=== PATIENT | female | born 1945 | race Caucasian/White ===

== ENCOUNTER → 2018-05-07 11:13 | Outpatient (CLI) | payer MEDICARE, SELFPAY ==
[2018-05-07 11:17] LABS: Microscopic, Urine URINE MICROSCOPIC (MICROSCOPIC)
--- NOTE | 2018-05-07 11:36 | XR_ITS ---
XR abdomen min 2V COMPARISON: None HISTORY: Abdominal pain TECHNIQUE: KUB and upright abdomen FINDINGS: There are mildly dilated loops of distal small bowel. There is minimal gas and stool in both hepatic and splenic flexures of the colon. There is no evidence of free air in the no abnormal soft tissue shadows. There is prominent levoscoliotic curvature of the upper lumbar spine with multilevel degenerative changes and generalized osteopenia. IMPRESSION: Mildly abnormal bowel gas pattern likely due to some degree of gastroenteritis Cannot deftly exclude the possibility of a early or partial mechanical small bowel obstruction and suggest clinical correlation and follow-up films if clinically suspected.
--- NOTE | 2018-05-07 11:36 | XR_ITS ---
XR chest 2V HISTORY: ITS.REASON: FEBRILE ILLNESS ORDERING PHYSICIAN: Santana Jacob PATIENT AGE: 72 years COMPARISON: None available FINDINGS: The cardiomediastinal silhouette and pulmonary vascularity are within normal limits. The lungs are clear without infiltrates, suspicious nodules, or pleural effusions. There is minimal atelectasis or scarring left lower lobe. There is a [id number] sized hiatal hernia noted. No acute bony abnormalities. There is mild dextroscoliotic curvature of the upper thoracic spine with multilevel degenerative changes. IMPRESSION: Negative chest, no acute finding
[2018-05-07 11:50] LABS: Basophils % 0.1 % (0.1-2.0); Eosinophils # 0.1 K/mm3 (0.0-0.4); Eosinophils % 0.3 % (0.1-12.0); Hematocrit 41.6 % (37.0-47.0); Hemoglobin 13.6 g/dL (12.2-16.2); Lymphocytes # 1.7 K/mm3 (0.7-4.5); Lymphocytes % 10.4 K/mm3 (10-50); Mean Corpuscular HGB Conc 32.8 g/dL (31.8-35.4); Mean Corpuscular Volume 100.6 fl (81-99); Mean Platelet Volume 8.6 fl (7.4-10.4); Monocytes # 0.9 K/mm3 (0.1-1.0); Monocytes % 5.4 % (1.7-9.3); Neutrophils % 83.8 % (37.0-80.0); Platelet Count 184 K/mm3 (142-424); Red Blood Count 4.14 M/mm3 (4.20-5.40); Red Cell Distribution Width 13.1 % (11.5-17.5); White Blood Count 16.7 K/mm3 (4.8-10.8)
[2018-05-07 11:53] LABS: MANUAL DIFFERENTIAL MANUAL DIFFERENTIAL (MANUAL DIFF)
[2018-05-07 11:54] LABS: Appearance,Urine CLEAR (Clear); Bilirubin,Urine Negative (Negative); Blood, Urine TRACE-I (Negative); Color,Urine YELLOW (Yellow); Glucose,Urine (UA) Negative (Negative); Ketones,Urine Negative (Negative); Leukocyte Esterase,Urine 1+ (Negative); Nitrate,Urine Negative (Negative); Protein,Urine Negative (Negative); Specific Gravity, Urine <= 1.005 (1.005-1.030)
[2018-05-07 11:57] LABS: Anion Gap 11.2 mEq/L (5-15); Blood Urea Nitrogen 11 mg/dL (7-18); Carbon Dioxide 26 mmol/L (21.0-32.0); Chloride 100 mmol/L (98-107); Creatinine,Serum 0.75 mg/dL (0.55-1.02); Estimated Glomerular Filt Rate 76 ml/min (>60); GFR (African American) 92 ML/MIN (>60); Glucose 116 mg/dL (74-106); Potassium 3.2 mmoL/L (3.5-5.1); Sodium 134 mmol/L (136-145)
[2018-05-07 12:10] LABS: Bacteria,Urine Trace /lpf
[2018-05-07 12:30] LABS: Lymphocytes % 7 % (10-50); Monocytes % 4 % (2-9); Neutrophils % 87 % (42-76); Total Cells Counted 100
[2018-05-07 12:32] LABS: Platelet Estimate Normal; RBC Morphology Normal
== END ==
PROVIDERS: Visit Provider Internal Medicine
DX: R50.9 Fever, unspecified (principal)
CPT/HCPCS: 36415; 71046; 74019; 80048; 81001; 85007; 85025; 87040; 87086; 87275; 87276

== ENCOUNTER → 2018-09-17 10:02 | Outpatient (CLI) | payer MEDICARE, SELFPAY ==
--- NOTE | 2018-09-17 10:05 | XR_ITS ---
EXAM: XR lumbar spine min 4V HISTORY: ITS.REASON: LOW BACK PAIN W/ LT SCIATICA ORDERING PHYSICIAN: Santana Jacob PATIENT AGE: 73 years COMPARISON: None FINDINGS: There is moderate lumbar scoliosis convex left measuring 25 degrees. There is mild wedging along the right lateral aspect of L2 and along the left lateral aspect of L4. Degenerative disc disease is present from L1 to S1 worse at L1-L2 L3-L4 and L5-S1. No acute fracture or dislocation is evident. No lytic or blastic change. There are 2 opacities to the left of L1 on the frontal view probably related to artifact. There is mild sclerosis of the SI joints. IMPRESSION: Moderate lumbar scoliosis with underlying degenerative disc disease as described above. There is mild compressive change involving the right aspect of L2 unchanged and the left aspect of L4 appears to have developed since 05/07/2018. Mild sclerosis of the SI joints
== END ==
PROVIDERS: PCP Internal Medicine; Visit Provider Internal Medicine
DX: M54.42 Lumbago with sciatica, left side (principal)
CPT/HCPCS: 72110

== ENCOUNTER → 2019-07-25 09:16 | Outpatient (POV) | payer MEDICARE, SELFPAY | PROVIDERS: PCP Internal Medicine; Visit Provider Nurse Practitioner Family | DX: Z00.00 Encounter for general adult medical examination without abnormal findings (principal) ==

== ENCOUNTER → 2019-08-02 | Outpatient (CLI) | payer MEDICARE, SELFPAY ==
[2019-08-02 16:05] LABS: Adenovirus F 40/41, stool Not Detected (NotDetected); Astrovirus Not Detected (NotDetected); Campylobacter Not Detected (NotDetected); Clostridium Difficile A/B, PCR Not Detected (NotDetected); Cryptosporidium Not Detected (NotDetected); Cyclospora Cayetanesis Not Detected (NotDetected); Entamoeba histolytica Not Detected (NotDetected); Enteroaggregative E coli Not Detected (NotDetected); Enteropathogenic E coli Not Detected (NotDetected); Enterotoxigenic E coli Not Detected (NotDetected); Giardia lamblia Not Detected (NotDetected); Norovirus Not Detected (NotDetected); Plesimonas Shigalloides, PCR Not Detected (NotDetected); Rotavirus A Not Detected (NotDetected); Salmonella, PCR Not Detected (NotDetected); Sapovirus Not Detected (NotDetected); Shiga-like toxin E coli Not Detected (NotDetected); Shigella Enterovasive E coli Not Detected (NotDetected); Vibrio Cholerae Not Detected (NotDetected); Vibrio, PCR Not Detected (NotDetected); Yersinia Entercolitica, PCR Not Detected (NotDetected)
== END ==
LOC: LAB.DROPOF 16:04 → LAB 16:05
PROVIDERS: Visit Provider Nurse Practitioner Family
DX: K21.9 Gastro-esophageal reflux disease without esophagitis (principal); R14.0 Abdominal distension (gaseous); R19.4 Change in bowel habit
CPT/HCPCS: 87506

== ENCOUNTER → 2020-01-16 11:03 | Outpatient (CLI) | payer MEDICARE, SELFPAY ==
--- NOTE | 2020-01-16 11:13 | XR_ITS ---
PROCEDURE: XR KNEE RT 3V CLINICAL INDICATION: OA Anterior knee pain COMPARISON: KNEE3L KNEE-3 VIEWS-LT from 03/14/2016 FINDINGS: No fracture or dislocation. No lytic or blastic change. There is normal mineralization. There are moderate to severe osteoarthritic changes of the medial compartment with mild osteoarthritic change of the patellofemoral joint. No fracture or dislocation. No lytic or blastic change. Other findings:None. 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
--- NOTE | 2020-01-16 11:13 | XR_ITS ---
PROCEDURE: XR KNEE LT 3V CLINICAL INDICATION: OA Anterior knee pain COMPARISON: KNEE3L KNEE-3 VIEWS-LT from 03/14/2016 FINDINGS: No fracture or dislocation. No lytic or blastic change. There is normal mineralization. There are moderate to severe osteoarthritic changes of the medial compartment slightly worse than when compared to the previous exam. Mild osteoarthritis is present at the patellofemoral joint. Other findings:Previously noted calcific densities in the suprapatellar region are not identified on today's study. IMPRESSION: Moderate to severe osteoarthritic change of the medial compartment Dictated by: Patrick Clark MD 01/16/2020 11:34 Electronically signed by Patrick Clark MD in [place] 01/16/2020 11:34
== END ==
PROVIDERS: PCP Internal Medicine; Visit Provider Internal Medicine
DX: M17.0 Bilateral primary osteoarthritis of knee (principal)
CPT/HCPCS: 73562

== ENCOUNTER → 2020-04-27 12:09 | Outpatient (CLI) | payer MEDICARE, SELFPAY ==
--- NOTE | 2020-04-27 12:17 | XR_ITS ---
PROCEDURE: XR KNEE LT 4V CLINICAL INDICATION: left knee pain COMPARISON: KNEE3L KNEE-3 VIEWS-LT from 03/14/2016 XR KNEE LT 3V from 01/16/2020 XR KNEE RT 3V from 01/16/2020 FINDINGS: No fracture or dislocation. No lytic or blastic change. There is normal mineralization. There are moderate to severe osteoarthritic changes of the medial compartment. Mild chondrocalcinosis at the lateral compartment. No acute fracture or dislocation. There is some undulation of the femoral cortex distally at the medial compartment not significantly changed. Other findings:None. IMPRESSION: Moderate to severe osteoarthritis involving the medial compartment of the left knee not significantly changed from 01/16/2020 Dictated by: Patrick Clark MD 04/27/2020 12:45 Electronically signed by Patrick Clark MD in [place] 04/27/2020 12:45
--- NOTE | 2020-04-27 12:17 | XR_ITS ---
PROCEDURE: XR KNEE RT 4V CLINICAL INDICATION: right knee pain COMPARISON: KNEE3L KNEE-3 VIEWS-LT from 03/14/2016 XR KNEE LT 3V from 01/16/2020 XR KNEE RT 3V from 01/16/2020 XR KNEE LT 4V from 04/27/2020 FINDINGS: No fracture or dislocation. No lytic or blastic change. There is normal mineralization. There are moderate to severe osteoarthritic changes of the medial compartment with loss of joint space medially and osteosclerosis and osteophyte formation. Minimal osteoarthritic changes involve the patellofemoral joint Other findings:None. 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
--- NOTE | 2020-04-27 12:19 | XR_ITS ---
PROCEDURE: XR HIP BI W PEL1V CLINICAL INDICATION: PAIN Pain COMPARISON: No exams were available for comparison FINDINGS: There mild osteoarthritic changes of both hips. No acute fracture or dislocation. No lytic or blastic change. Mild degenerative changes are also noted at the symphysis pubis and the right SI joint as well as the lower lumbar spine. IMPRESSION: Mild osteoarthritis of the hips Dictated by: Patrick Clark MD 04/27/2020 12:44 Electronically signed by Patrick Clark MD in [place] 04/27/2020 12:44
== END ==
PROVIDERS: PCP Internal Medicine; Visit Provider Orthopaedic Surgery
DX: M25.561 Pain in right knee (principal); M25.562 Pain in left knee; M25.552 Pain in left hip; M25.551 Pain in right hip
CPT/HCPCS: 73521; 73564

== ENCOUNTER → 2020-06-12 11:12 | Outpatient (CLI) | payer MEDICARE, SELFPAY ==
--- NOTE | 2020-06-12 11:18 | XR_ITS ---
PROCEDURE: XR CHEST 2V CLINICAL HISTORY: S/P FALL ON STERNAL AREA x 2 week ago,CHEST PAIN COMPARISON: CXR2V XR chest 2V from 05/07/2018 FINDINGS: No acute bony abnormalities. The cardiomediastinal silhouette and pulmonary vascularity are within normal limits. The lungs are hyperinflated, consistent with COPD. Lung howard are unremarkable for acute infiltrative or congestive changes. A moderately large size hiatal hernia is seen as a gas containing retrocardiac density. There is osteopenia. Increased thoracic kyphosis. S-shaped thoracolumbar scoliosis. IMPRESSION: 1. No acute findings. 2. COPD changes. Osteoporosis. Increased thoracic kyphosis. A hiatal hernia. Dictated by: Malissa Franco 06/12/2020 12:19 Electronically signed by Malissa Franco in [place] 06/12/2020 12:19
== END ==
PROVIDERS: PCP Internal Medicine; Visit Provider Internal Medicine
DX: R07.9 Chest pain, unspecified (principal)
CPT/HCPCS: 71046

== ENCOUNTER 2021-04-11 13:39 | Observation (INO) | payer MEDICARE, MEDICAID, SELFPAY ==
[2021-04-11] VITALS (11 sets, daily range): BP systolic 95–134; BP diastolic 54–72; PULSE 68–76; RESP 12–18; TEMP 36.6–37.6; O2SAT 93–97; BMI 22.7; BMI 23.1
--- NOTE | 2021-04-11 13:49 | XR_ITS ---
PROCEDURE: XR HIP RT 2-3V W/PELVIS CLINICAL INDICATION: pain COMPARISON: CR XR HIP BI W PEL1V from 04/27/2020 FINDINGS: Impacted right subcapital femoral neck fracture. There is foreshortening approximately 12 mm. The femoral head appears in place. No significant displacement. IMPRESSION: Mildly impacted right subcapital femoral neck fracture Dictated by: Patrick Clark MD 04/11/2021 14:49 Patrick Clark MD in [place] 04/11/2021 14:49
--- NOTE | 2021-04-11 13:50 | XR_ITS ---
PROCEDURE: XR CHEST PORTABLE CLINICAL HISTORY: pain COMPARISON: CR CXR2V XR chest 2V from 05/07/2018 CR XR CHEST 2V from 06/12/2020 FINDINGS: Cardiomegaly with mild pulmonary venous congestion Lucency noted along the left lateral hemithorax suggesting skin fold artifact. No lobar consolidation or collapse. There is a small hiatal hernia. There is upper thoracic curvature convex right and lumbar curvature convex left. IMPRESSION: Mild CHF Dictated by: Patrick Clark MD 04/11/2021 14:48 Patrick Clark MD in [place] 04/11/2021 14:48
--- NOTE | 2021-04-11 13:54 | ECG_ITS ---
APPROVED REPORT Exam: Resting ECG HR:65 bpm ECG Measurements Heart Rate 65 AXES MI 184 P 53 QRSd 92 QRS -23 QT 402 T 25 QTc 418 Conclusion Normal sinus rhythm Incomplete right bundle branch block Borderline ECG Electronically signed by : Fritz Vickers, 04/13/2021 07:29:15
--- NOTE | 2021-04-11 13:56 | [facility].EDGENADL ---
ED Disposition Clinical Impression: Closed right hip fracture Qualifiers: Encounter type: initial encounter Qualified Code(s): S72.001A - Fracture of unspecified part of neck of right femur, initial encounter for closed fracture Disposition: Admitted As Inpatient Condition on Discharge: Fair - Critical Care Critical Care Time: No Attestation: On 04/11/21, the high probability of a clinically significant, sudden or life threatening deterioration of the following system(s) required my full and direct attention, intervention and personal management. The time I documented below is in addition to time spent performing reported procedures but includes the following listed in this critical care notation. Medical Decision Making - [place] Inquiry Pt receiving controlled substance: Yes [place] was queried for this patient: Yes Risks and benefits of using a controlled substance: were not discussed with pt by me Vital Signs: 04/11/21 13:40 04/11/21 15:00 Temperature 98.5 F Temperature Source Oral Pulse Rate 68 Pulse Rate [Radial] 74 Respiratory Rate 16 13 Blood Pressure 112/66 Blood Pressure [Right Arm] 128/60 Blood Pressure Mean 91 Blood Pressure Mean [Right Arm] 82 Blood Pressure Position [Right Arm] Sitting 02 Sat by Pulse Oximetry 97 93 L Oxygen Delivery Method Room Air - Lab Data Lab Results 04/11/21 13:47: WBC 17.9 H, RBC 3.66 L, Hgb 12.4, Hct 36.2 L, MCV 99.0, MCH 34.0 H, MCHC 34.4, RDW 13.0, Plt Count 215, MPV 8.6, Neut % (Auto) 83.8 H, Lymph % (Auto) 11.4, [place] % (Auto) 4.0, Eos % (Auto) 0.7, Baso % (Auto) 0.2, Neut # (Auto) 15.0 H, Lymph # (Auto) 2.0, [place] # (Auto) 0.7, Eos # (Auto) 0.1, Baso # (Auto) 0.0, Total Counted 100, Neutrophils % (Manual) 79 H, Lymphocytes % (Manual) 17, Monocytes % (Manual) 4, Platelet Estimate Normal, RBC Morphology Normal 04/11/21 13:47: Sodium 132 L, Potassium 4.5, Chloride 99, Carbon Dioxide 25, Anion Gap 12.5, BUN 13, Creatinine 0.60, Estimated Creat Clear 50, Estimated GFR 97, Est GFR ( Amer) 118, Glucose 104 H, Calcium 9.9, Total Bilirubin 1.0, AST 24, ALT 20, Alkaline Phosphatase 86, Total Protein 7.2, Albumin 4.5, Globulin 2.7, Albumin/Globulin Ratio 1.7 04/11/21 14:42: Urine Color Yellow, Urine Appearance Clear, Urine pH 6.0, Ur Specific [place] 1.015, Urine Protein Negative, Urine Glucose (UA) Negative, Urine Ketones Trace, Urine Blood Negative, Urine Nitrate Negative, Urine Bilirubin Negative, Urine Urobilinogen 2.0, Ur Leukocyte Esterase 1+ A, Urine RBC Occasional, Urine WBC Occasional, Ur Squamous Epith Cells Occasional, Urine Bacteria None Result diagrams: 04/11/21 13:47 04/11/21 13:47 Orders (Tests/Meds): ED MEDICATIONS Discontinued Medications Generic Name Dose Route Start Last Admin Trade Name Freq PRN Reason Stop Dose Admin Furosemide 20 mg 04/11/21 15:30 Furosemide 40mg/4ml Vial IV 04/11/21 15:31 ONCE ONE Morphine Sulfate 4 mg 04/11/21 14:04 04/11/21 14:13 Morphine 4mg/Ml Syringe IV 04/11/21 14:05 4 mg ONCE ONE Administration Ondansetron HCl 4 mg 04/11/21 14:05 04/11/21 14:13 Ondansetron 4mg/2ml Vial IV 04/11/21 14:06 4 mg ONCE ONE Administration ORDERS Category Date Time Status Consult to Orthopedic Surgery [CONS] Stat Cons 04/11/21 14:34 Ordered Full Resp Panel w/COVID ([facility]) Routine Lab 04/11/21 14:35 Received Urine Culture Stat Micro 04/11/21 14:42 Received - Radiology Data #1 Image(s): Chest, Hip Image Reviewed: Yes I reviewed the patient's radiology image, Yes I have reviewed radiologist's interpretation PROCEDURE: XR CHEST PORTABLE CLINICAL HISTORY: pain COMPARISON: CR CXR2V XR chest 2V from 05/07/2018 CR XR CHEST 2V from 06/12/2020 FINDINGS: Cardiomegaly with mild pulmonary venous congestion Lucency noted along the left lateral hemithorax suggesting skin fold artifact. No lobar consolidation or collapse. There is a small hiatal hernia. There is upper t
[2021-04-11 13:57] LABS: Basophils % 0.2 % (0.1-2.0); Eosinophils # 0.1 K/mm3 (0.0-0.4); Eosinophils % 0.7 % (0.1-12.0); Hematocrit 36.2 % (37.0-47.0); Hemoglobin 12.4 g/dL (12.2-16.2); Lymphocytes % 11.4 % (10-50); Mean Corpuscular HGB Conc 34.4 g/dL (31.8-35.4); Mean Platelet Volume 8.6 fl (7.4-10.4); Monocytes # 0.7 K/mm3 (0.1-1.0); Neutrophils % 83.8 % (37.0-80.0); Platelet Count 215 K/mm3 (142-424); Red Blood Count 3.66 M/mm3 (4.20-5.40); White Blood Count 17.9 K/mm3 (4.8-10.8)
[2021-04-11 14:02] LABS: MANUAL DIFFERENTIAL MANUAL DIFFERENTIAL (MANUAL DIFF)
[2021-04-11 14:04] LABS: Chloride 99 mmol/L (98-107); Potassium 4.5 mmoL/L (3.5-5.1); Sodium 132 mmol/L (136-145)
[2021-04-11 14:06] LABS: Alanine Aminotransferase 20 U/L (12-78); Aspartate Amino Transferase 24 U/L (14-36); Blood Urea Nitrogen 13 mg/dl (7-17); Creatinine Clearance Estimated 50 mL/min (50-200); Estimated Glomerular Filt Rate 97 ml/min (>60); GFR (African American) 118 ML/MIN (>60)
[2021-04-11 14:07] LABS: Albumin Level 4.5 g/dl (3.5-5.0); Albumin/Globulin Ratio 1.7 (1.1-1.8); Alkaline Phosphatase 86 U/L (38-126); Anion Gap 12.5 mEq/L (5-15); Calcium 9.9 mg/dl (8.4-10.2); Carbon Dioxide 25 mmol/L (22.0-30.0); Globulin 2.7 g/dL (1.3-3.2); Glucose 104 mg/dl (74-100); Total Protein,Serum 7.2 g/dl (6.3-8.2)
[2021-04-11 14:16] LABS: Lymphocytes % 17 % (10-50); Monocytes % 4 % (2-9); Neutrophils % 79 % (42-76); Platelet Estimate Normal; RBC Morphology Normal; Total Cells Counted 100
--- NOTE | 2021-04-11 14:35 | PC.NURSE ---
Dr Parry called for admission consult of patient.
--- NOTE | 2021-04-11 14:37 | PC.NURSE ---
Advised via phone that Arianne wants pt admitted based on x-ray he reviewed and consulted with PCP
--- NOTE | 2021-04-11 14:41 | PC.NURSE ---
speaking with Neulynn at this time
[2021-04-11 14:42] LABS: Adenovirus,PCR Not Detected (NotDetected); Bordetella Pertussis Not Detected (NotDetected); Chlamydophila Pneumoniae, PCR Not Detected (NotDetected); Coronavirus 19, PCR Not Detected (NotDetected); Coronavirus 229E Not Detected (NotDetected); Coronavirus NL63 Not Detected (NotDetected); Coronavirus OC43 Not Detected (NotDetected); Coronovirus HKU1,PCR Not Detected (NotDetected); Human Metapneumovirus Not Detected (NotDetected); Influenza A, PCR Not Detected (NotDetected); Influenza AH1, 2009 Not Detected (NotDetected); Influenza AH1, PCR Not Detected (NotDetected); Influenza AH3,PCR Not Detected (NotDetected); Influenza B, PCR Not Detected (NotDetected); Mycoplasma Pneumoniae, PCR Not Detected (NotDetected); Parainfluenza 1, PCR Not Detected (NotDetected); Parainfluenza 2, PCR Not Detected (NotDetected); Parainfluenza 3, PCR Not Detected (NotDetected); Parainfluenza 4, PCR Not Detected (NotDetected); Respiratory Syncytial Virus Not Detected (NotDetected); Rhinovirus/Enterovirus Not Detected (NotDetected)
[2021-04-11 14:48] LABS: Microscopic, Urine URINE MICROSCOPIC (MICROSCOPIC)
[2021-04-11 15:00] LABS: Appearance,Urine CLEAR (Clear); Bilirubin,Urine Negative (Negative); Blood, Urine Negative (Negative); Color,Urine YELLOW (Yellow); Glucose,Urine (UA) Negative (Negative); Ketones,Urine TRACE (Negative); Leukocyte Esterase,Urine 1+ (Negative); Nitrate,Urine Negative (Negative); Protein,Urine Negative (Negative); Specific Gravity, Urine 1.015 (1.005-1.030)
[2021-04-11 15:15] LABS: RBC,Urine Occasional #/hpf (0-3); Squamous Epithelial Cell,Urine Occasional #/hpf (0-5); WBC,Urine Occasional #/hpf (0-3)
--- NOTE | 2021-04-11 15:28 | PC.NURSE ---
MD speaking with Neus at this time (again) regarding patient.
--- NOTE | 2021-04-11 15:29 | CA_ITS ---
APPROVED REPORT EXAM: Comprehensive 2D, Doppler, and color-flow Echocardiogram Periodontal Assistant: Ly Martin RVT Ht: 5 ft 7 in Wt: 145lbs BSA: 1.76 BP: 128/60 mmHg Indications: CHF,RT HIP FX,HTN TDS-PT SCANNED FLAT ON BACK 2D Dimensions IVSd 1.87 cm F: 0.6-1.0 LVEF (Visual) 68.40 % PWd 1.05 cm F: 0.6 - 1.0 LA Volume 26.20 mL LVDd 3.38 cm F: 3.9 - 5.3 LA Volume Index 14.88 mL/m2 (M/F) 16-34 LVDs 2.12 cm F: 2.2 - 3.5 LVOT 1.78 cm (M/F) 1.5-2.5 M-Mode Dimensions LA Diam 4.51 cm (1.9-4.0) Ao Diam 3.03 cm (2.0-3.7) TAPSE 2.13 (<1.7) LV Diastology E Decel Time 290.00 (160-240 msec) E/A Ratio 0.8 MED E' 5.10 (< 7 cm/sec) E'/MED E' Ratio 15.24 (>14) LAT E' 6.50 (<10 cm/sec) E/LAT E' Ratio 11.95 (>14) Aortic Valve AO Peak GR. 15.50 mmHg Mitral Valve MV E Max Guevara. 78.00 (40-130 cm/s) MV A Velocity 101.00 (40-130 cm/s) E/A Ratio 0.77 MV Decel. Time 290.00 (160-240 ms) MV PHT 85.00 ms Pulmonary Valve PV Peak Velocity 108.00 (50-150 cm/s) Tricuspid Valve TR P. Velocity 294.00 cm/s RAP Estimate 10.00 mmHg RVSP 44.50 mmHg Left Ventricle Left atrium is mildly enlarged, left ventricle is normal size, mild concentric left ventricular hypertrophy, visually estimated ejection fraction 55% with no regional wall motion abnormality, grade 1 diastolic dysfunction seen without tissue Doppler evidence of raise left atrial pressure. Right Ventricle Right atrium and right ventricle are normal size and contractility. Aortic Valve Aortic valve is minimally thickened and fibrosed, there is no aortic stenosis or aortic insufficiency. Mitral Valve Mitral valve is grossly normal, there is mild mitral regurgitation. Tricuspid Valve Tricuspid valve grossly normal, there is mild tricuspid regurgitation, calculated right ventricular systolic pressure is 44 mmHg. Pulmonic Valve Pulmonic valve is poorly visualized. Great Vessels Aortic root is normal size. Inferior vena cava is normal size with normal inspiratory collapse. Pericardium No significant pericardial effusion noted. Conclusion 1. Mildly enlarged left atrium, normal left ventricular size, mild concentric left ventricular hypertrophy, visually estimated ejection fraction 55% with no regional wall motion abnormality, grade 1 diastolic dysfunction seen without tissue Doppler evidence of raise left atrial pressure. 2. Thickened and calcified aortic valve without aortic stenosis or aortic insufficiency 3. Mild mitral and tricuspid regurgitation, calculated right ventricular systolic pressure is 44 mmHg. 4. No significant pericardial effusion noted, inferior vena cava is normal size with normal inspiratory collapse. Electronically signed by : Vidal Noble, 04/11/2021 16:26:08
--- NOTE | 2021-04-11 15:50 | PC.NURSE ---
Pearl Wolf from cardiology called and said if the patient needs emergent consult/ clearance for surgery we will need to text or page carlos otherwise Yuliya will round on her in the morning.
[2021-04-11 15:53] LABS: NT Pro Brain Natriuretic Pep. 139 pg/mL (0-450)
[2021-04-11 15:58] LABS: Troponin I < 0.01 ng/ml (0.00-0.034)
--- NOTE | 2021-04-11 16:08 | PC.NURSE ---
Staff at bedside performing Echo.
--- NOTE | 2021-04-11 16:11 | PC.NURSE ---
Calling MD Sutton, as he requested, to let him know Echo is done and he can perform his consult on the pt now.
--- NOTE | 2021-04-11 16:39 | PC.NURSE ---
MD Sutton at bedside.
--- NOTE | 2021-04-11 16:39 | PC.NURSE ---
Bernarda, RN transferred care to floor RN and tech at this time.
--- NOTE | 2021-04-11 17:18 | PC.NURSE ---
armstrong urine output 1750cc
--- NOTE | 2021-04-11 17:43 | PC.NURSE ---
pt and family updated on plan of care
--- NOTE | 2021-04-11 17:45 | PC.NURSE ---
pt given sandwich and sprite. family at bedside
--- NOTE | 2021-04-11 18:20 | HMH.ORTHOCON ---
*Admission Date: 04/11/21 *Reason for consult:: Fracture neck of femur, right hip *History of present illness: Patient is a 75-year-old white female seen in the ER for orthopedic consultation regarding her right femoral neck fracture sustained earlier today. Patient is a bit hard of hearing and her daughter is by the bedside. The patient states that she fell down at home while she was sweeping/mopping the floor. She thinks she may have lost her footing that caused her to fall. She states that she developed immediate severe pain in her right hip and could not get up and walk afterwards. She was brought to the ER where evaluation including x-rays showed a displaced femoral neck fracture on the right side. Patient is being admitted for further management of the injury. She is complaining of right hip pain worsened with any attempted movements. No history of any distal tingling or numbness. She denies any other injury. She denies any chest pain, pressure, shortness of breath, dizziness or syncope prior to the fall. She reports that she had bilateral hip pain in the past. She in fact was under my care last year for bilateral hip and knee pain. X-rays at that time showed mild osteoarthritis of both hip joints with more significant arthritis in both knee joints. She had intra-articular steroid injection to both knee joints and reports significant pain relief following the injections. She is independent and mobile without using any walking aids. No history of previous falls. Her medical history includes Anxiety, Depression, Gastroesophageal Reflux Disease(GERD), Hypertension. She is not a known diabetic and a non-smoker. [facility] History I have reviewed the patient's past medical history: Yes Medical History: Reports:: Anxiety, Depression, Gastroesophageal Reflux Disease(GERD), Hypertension Denies:: Diabetes Mellitus Type 1, Diabetes Mellitus Type 2, Internal Pacemaker, Lung Disease, Seizures *Have you ever received a pneumonia vaccine?: Yes *Have you received a flu vaccine this season?: Yes Other Medical History: Reports: Arthritis, Other. Denies: Blood Transfusion Reaction Other Surgeries: Yes: Colonoscopy, Hysterectomy-Total, Other. No: Pacemaker Amputation: No Fractures: No - *Social History Smoking Status: Never smoker Alcohol Intake: never Alcohol Intake Frequency:: other Substance Use Type: denies use, other *Occupational Status:: other *Travel in the last 8 weeks: None - Psychiatric History Pschychiatric History:: Reports:: Anxiety, Depression Family Hx:: No significant family history Review of Systems - Review of Systems Review of systems:: pertinent systems reviewed and negative unless documented below - Constitutional Denies chills, Denies fever(s), Denies headache(s), Denies malaise - Eyes Denies change in vision - ENT Reports hearing loss, Denies difficulty swallowing - *Cardiovascular Denies chest pain, Denies shortness of breath - *Respiratory Denies chest congestion, Denies cough - *Gastrointestinal Denies abdominal pain, Denies change in bowel habits - *Musculoskeletal Reports abnormal walking, Reports joint pain, Reports limited joint movement - Integumentary/Breasts Denies bleeding lesions - *Neurologic Reports abnormal walking, Denies seizure-like activity, Denies headache(s), Denies numbness, Denies tingling/numbness/burning sensations, Denies fainting, Denies weakness - Endocrine Denies cold intolerance, Denies heat intolerance - Hematologic/Lymphatic Denies easy bleeding, Denies easy bruising Meds Home Medications Medication Instructions Recorded Confirmed Type amlodipine 10 mg tablet 10 mg PO DAILY 03/30/18 04/12/21 History aspirin 81 mg tablet,delayed 81 mg PO DAILY 03/30/18 04/12/21 History release clonazepam 0.5 mg tablet 0.5 mg PO DIRECTED 03/30/18 04/12/21 History escitalopram oxalate 10 mg tablet 10 mg PO DAILY 03/30/18 04/12/21 History losartan 100 mg tablet 100 mg PO COLIN
--- NOTE | 2021-04-11 18:32 | PC.NURSE ---
report called to floor
--- NOTE | 2021-04-11 18:51 | PC.NURSE ---
pt going to the floor at this time.
--- NOTE | 2021-04-11 19:30 | PC.NURSE ---
pt does not have dentures at this time
--- NOTE | 2021-04-11 20:02 | PC.NURSE ---
Pt to floor at approx 1855. Report taken from JE Pimentel in ED and given to Mckayla Blanton RN. Pt is a new admission to floor from the ED. Family member is with pt.
[2021-04-12] VITALS (17 sets, daily range): BP systolic 109–156; BP diastolic 50–112; PULSE 69–96; RESP 12–20; TEMP 36.6–39.4; O2SAT 90–94; BMI 24.5; BMI 24.6
--- NOTE | 2021-04-12 03:40 | PC.NURSE ---
A&OX4. PT TOLERATING RA WELL. PT HAS BEEN IN BED RESTING MAJORITY OF SHIFT. F/C PRESENT DRAINING BRIGHT YELLOW URINE. PT HAS C/O PAIN IN R HIP X1 THIS SHIFT. TX WITH PRN MORPHINE PER JAN. ON REASSESSMENT, PT RESTING IN BED WITH EYES CLOSED. NPO SINCE 0000, TOLERATING WELL. NO OTHER C/O THUS FAR, VSS WILL CONTINUE TO MONITOR.
[2021-04-12 06:26] LABS: Basophils % 0.2 % (0.1-2.0); Eosinophils # 0.2 K/mm3 (0.0-0.4); Eosinophils % 1.9 % (0.1-12.0); Hematocrit 33.4 % (37.0-47.0); Hemoglobin 11.7 g/dL (12.2-16.2); Lymphocytes # 1.3 K/mm3 (0.7-4.5); Lymphocytes % 10.9 % (10-50); Mean Corpuscular HGB Conc 35.2 g/dL (31.8-35.4); Mean Corpuscular Volume 99.4 fl (81-99); Mean Platelet Volume 8.6 fl (7.4-10.4); Monocytes # 0.6 K/mm3 (0.1-1.0); Monocytes % 5.2 % (1.7-9.3); Neutrophils # 9.7 K/mm3 (1.8-7.8); Neutrophils % 81.8 % (37.0-80.0); Platelet Count 193 K/mm3 (142-424); Red Blood Count 3.36 M/mm3 (4.20-5.40); White Blood Count 11.9 K/mm3 (4.8-10.8)
[2021-04-12 06:37] LABS: Anion Gap 6.9 mEq/L (5-15); Blood Urea Nitrogen 8 mg/dl (7-17); Calcium 9.3 mg/dl (8.4-10.2); Carbon Dioxide 27 mmol/L (22.0-30.0); Chloride 102 mmol/L (98-107); Creatinine Clearance Estimated 48 mL/min (50-200); Estimated Glomerular Filt Rate 97 ml/min (>60); GFR (African American) 118 ML/MIN (>60); Glucose 107 mg/dl (74-100); Potassium 3.9 mmoL/L (3.5-5.1); Sodium 132 mmol/L (136-145)
--- NOTE | 2021-04-12 07:32 | HMH.CNCARD ---
History of Present Illness Consult date: 04/12/21 Requesting physician: Karl Mays Consult reason: pre-op evaluation Chief complaint: CHF and fractured right hip History of present illness: 75-year-old female presented to [facility] ED last evening with increased pain of the right hip and leg area. X-ray was performed on the right hip which revealed a right subcapital femoral neck fracture. Patient states she had been sweeping and mopping her floor at home when she suddenly lost balance tripping over her feet causing her to fall. Patient denies losing consciousness at that time. Orthopedic surgeon has consulted on patient, patient will need surgery of the right hip today. Cardiology was consulted due to mild congestive heart failure noted on chest x-ray and preop evaluation. Patient denies chest pain, tightness or pressure. Patient denies shortness of breath. Patient states she is a very active lady living at home with her . Patient denies dizziness or palpitations. Patient denies any history of coronary artery disease. Patient states last month she was seen by Dr. Myles in [place] in which she underwent a stress test. Dr. Myles told her her stress test was fine. Patient states she only went for stress test due to her daughter's being persistent of her having her heart checked out. Patient states after seeing Dr. Ortiz he did prescribe her on spironolactone due to some swelling that she had been having in her right leg and ankle. Patient states since starting the spironolactone she has seen a difference in the swelling that she was experiencing. Patient does have swelling of the right lower leg and ankle due to the fracture. No swelling noted in the left lower extremity. Patient states she has history of anxiety. States history of hypertension and history of DVTs. Patient states last DVT was several years ago. DVT was located in leg, and treated by Coumadin. Patient states she is only taking aspirin at this time. Patient denies any tobacco use or alcohol use. Patient states she will be following up with Dr. Ortiz next month as previous appointment. Initial EKG reveals sinus rhythm with an incomplete right bundle branch block with a heart rate of 80 bpm. Blood pressure stable. Hypokalemia is noted and this is being managed by PCP. Mild CHF was noted on chest x-ray in which she received Lasix 20 mg IV per PCP. Echo:Conclusion 1. Mildly enlarged left atrium, normal left ventricular size, mild concentric left ventricular hypertrophy, visually estimated ejection fraction 55% with no regional wall motion abnormality, grade 1 diastolic dysfunction seen without tissue Doppler evidence of raise left atrial pressure. 2. Thickened and calcified aortic valve without aortic stenosis or aortic insufficiency 3. Mild mitral and tricuspid regurgitation, calculated right ventricular systolic pressure is 44 mmHg. 4. No significant pericardial effusion noted, inferior vena cava is normal size with normal inspiratory collapse. Discussed plan of care with Dr. Eubanks. Echocardiogram was obtained to assess LV function and valve status. Echocardiogram revealed EF 55% with no regional wall abnormality and grade 1 diastolic dysfunction. Mild/moderate and tricuspid regurgitation. Patient does have history of DVTs in which she will need to be on prophylaxis DVT protocol, will defer this to PCP and orthopedic surgeon. Patient is at a low and acceptable risk from a cardiac standpoint to proceed with her elective hip surgery. Please notify cardiology of any changes in patient status. Thank you for allowing cardiology to participate in the care of this patient [facility] History I have reviewed the patient's past medical history: Yes Medical History: Reports:: Anxiety, Congestive Heart Failure, Coronary Artery Disease, Depression, Gastroesophageal Reflux Disease(GERD), Hyperlipidemia, Hypertension Denies:: Di
--- NOTE | 2021-04-12 09:15 | HMH.HP ---
*Admission Date: 04/11/21 *Chief complaint: hip fx *History of present illness: 75-year-old female presented to [facility] ED last evening with increased pain of the right hip and leg area. patient states she was sweeping and mopping the floor when she lost her balance tripping over her feet and falling to the floor. X-ray was performed on the right hip which revealed a right subcapital femoral neck fracture. . Patient denies losing consciousness at that time. Patient admitted to [facility] for hip fracture. Orthopedic surgeon has consulted and Cardiology was consulted due to mild congestive heart failure noted on chest x-ray and preop evaluation. [facility] History I have reviewed the patient's past medical history: Yes Medical History: Reports:: Anxiety, Congestive Heart Failure, Coronary Artery Disease, Depression, Gastroesophageal Reflux Disease(GERD), Hyperlipidemia, Hypertension Denies:: Diabetes Mellitus Type 1, Diabetes Mellitus Type 2, Internal Pacemaker, Lung Disease, Seizures *Have you ever received a pneumonia vaccine?: Yes *Have you received a flu vaccine this season?: No Other Medical History: Reports: Arthritis, Other. Denies: Blood Transfusion Reaction Other Surgeries: Yes: Colonoscopy, Hysterectomy-Total, Other. No: Pacemaker Amputation: No Fractures: No - *Social History Smoking Status: Never smoker Alcohol Intake: never Alcohol Intake Frequency:: other Substance Use Type: denies use, other *Occupational Status:: retired *Travel in the last 8 weeks: None - Psychiatric History Pschychiatric History:: Reports:: Anxiety, Depression Family Hx:: No significant family history Review of Systems - Review of Systems Review of systems:: pertinent systems reviewed and negative unless documented below - Constitutional Denies body ache(s) - Eyes Denies blurry vision - ENT Denies bleeding gums, Denies dizziness - *Cardiovascular Denies chest pain at rest - *Respiratory Denies change in phlegm color, Denies shortness of breath with activity - *Gastrointestinal Denies belching - *Genitourinary Denies urinary incontinence - *Musculoskeletal Reports abnormal walking, Reports joint pain, Reports radiating pain into limb, Reports other - Integumentary/Breasts Denies rash - *Neurologic Reports abnormal walking, Denies abnormal hearing, Denies seizure-like activity, Denies headache(s), Denies numbness, Denies tingling/numbness/burning sensations, Denies fainting, Denies weakness - Psychiatric Denies lack of enjoyment - Endocrine Denies excessive sweating - Hematologic/Lymphatic Denies easy bruising - Allergic/Immunologic Denies GI upset with certain foods Meds Home Medications Medication Instructions Recorded Confirmed Type amlodipine 10 mg tablet 10 mg PO DAILY 03/30/18 04/12/21 History aspirin 81 mg tablet,delayed 81 mg PO DAILY 03/30/18 04/12/21 History release clonazepam 0.5 mg tablet 0.5 mg PO BID 03/30/18 04/11/21 History escitalopram oxalate 10 mg tablet 10 mg PO DAILY 03/30/18 04/12/21 History esomeprazole magnesium 40 mg 40 mg PO DAILY 03/30/18 04/12/21 History capsule,delayed release losartan 100 mg tablet 100 mg PO DAILY 03/30/18 04/12/21 History spironolactone 25 mg tablet 25 mg PO DAILY 03/30/18 04/11/21 History Calcium Carbonate [Calcium] 600 mg PO DAILY 05/18/19 04/11/21 History Diclofenac Sodium [Diclofenac 75mg 75 mg PO BID 05/18/19 04/11/21 History Tab] Multivitamin [Multivitamins] 1 each PO DAILY 05/18/19 04/11/21 History [place]-3 Fatty Acids [Fish Oil] 300 mg PO DAILY 05/18/19 04/11/21 History Allergies Allergy/AdvReac Type Severity Reaction Status Date / Time Penicillins [PENICILLINS] Allergy Unknown Verified 05/02/20 14:09 Exam Vital signs and Labs for Last 24 Hours: Temp Pulse Resp BP Pulse Ox 98.8 F 69 20 112/78 93 L 04/12/21 07:41 04/12/21 07:41 04/12/21 07:41 04/12/21 07:41 04/12/21 07:41 Laboratory Results - last
--- NOTE | 2021-04-12 09:23 | P.CONPHA_ITS ---
[facility] Pharmacy VTE Monitoring - Patient Demographics Admission date: 04/12/21 Report Date: 04/12/21 Time: 09:23 Allergies/Adverse Reactions: Patient Allergies Penicillins [PENICILLINS] Allergy (Unknown, Verified 05/02/20 14:09) Height: 1.65 m Weight: 66.848 kg Patient Problems: Current Active Problems Closed right hip fracture (Acute) - VTE Risk Labs: VTE Related Lab Results Hgb 11.7 g/dL (12.2-16.2) L 04/12/21 05:59 Hct 33.4 % (37.0-47.0) L 04/12/21 05:59 Plt Count 193 K/mm3 (142-424) 04/12/21 05:59 BUN 8 mg/dl (7-17) D 04/12/21 05:59 Creatinine 0.60 mg/dl (0.52-1.04) 04/12/21 05:59 Estimated Creat Clear 48 mL/min (50-200) 04/12/21 05:59 VTE Score: 3 VTE Risk Level: Low Risk Clinical Trial Participant: No - Prophylaxis VTE Prophylaxis Ordered?: Yes Types of VTE Prophylaxis: TEDS Knee High
--- NOTE | 2021-04-12 10:39 | SW/DCPLANNER ---
Addendum entered by Alee Lamas 04/16/21 14:31: Kirsten with [facility] has confirmed that services will begin this week for this patient. Addendum entered by Alee Manton 04/16/21 10:25: This patient will discharge home today with home health services. Patient already has ordered DME (walker/BSC) from Thursday. Patient information/order has been faxed to Kirsten with [facility]. I will follow up with Kirsten once patient information is reviewed. Addendum entered by Alee Manton 04/12/21 13:41: I have ordered this patient a rolling walker and BSC per family request from [facility]. [facility] will deliver DME today. If patient needs placement at time of discharge then [facility] will pick equipment up from family. Addendum entered by Alee Manton 04/12/21 12:59: Patient has stated that if she does return home the only DME she will need is a BSC. This will be arranged once discharge plans (home with HH vs placement) is established. Original Note: I spoke with this patient this morning regarding discharge plans. Prior to admission patient lived at home with her and was independent. Patient did have a fall which led to hip fx diagnosis. Patient will have surgery later this afternoon. I spoke with patient regarding possible discharge plans: home with home health vs placement. I explained to patient this would be based on how she does with PT/OT after surgery. Patient prefers to return home but understands placement may be best option at discharge. Patient expressed an interest in [facility] if placement was necessary. I will continue to follow up with this patient. Discharge date is unknown at this time.
--- NOTE | 2021-04-12 10:44 | HMH.PHAINT ---
clarified home medication list using home pharmacy list, list from Dr. monroe' office and pt interview
--- NOTE | 2021-04-12 13:27 | HMH.ORTHPN ---
Subjective Date: 04/12/21 Time: 12:00 Principal diagnosis: Right femur, right hip Interval history: Patient says she is doing well and reports no major problems apart from the right hip pain. She says she had a fairly comfortable night. She reports that the hip pain gets worse with any attempted movements of the right lower extremity. No history of any distal tingling or numbness. PN: Obj Ex Vital signs: Temp Pulse Resp BP Pulse Ox 98.8 F 69 20 112/78 93 L 04/12/21 07:41 04/12/21 07:41 04/12/21 07:41 04/12/21 07:41 04/12/21 07:41 Narrative: Laboratory Results - last 24 hr 04/11/21 13:47: WBC 17.9 H, RBC 3.66 L, Hgb 12.4, Hct 36.2 L, MCV 99.0, MCH 34.0 H, MCHC 34.4, RDW 13.0, Plt Count 215, MPV 8.6, Neut % (Auto) 83.8 H, Lymph % (Auto) 11.4, [place] % (Auto) 4.0, Eos % (Auto) 0.7, Baso % (Auto) 0.2, Neut # (Auto) 15.0 H, Lymph # (Auto) 2.0, [place] # (Auto) 0.7, Eos # (Auto) 0.1, Baso # (Auto) 0.0, Total Counted 100, Neutrophils % (Manual) 79 H, Lymphocytes % (Manual) 17, Monocytes % (Manual) 4, Platelet Estimate Normal, RBC Morphology Normal 04/11/21 13:47: Sodium 132 L, Potassium 4.5, Chloride 99, Carbon Dioxide 25, Anion Gap 12.5, BUN 13, Creatinine 0.60, Estimated Creat Clear 50, Estimated GFR 97, Est GFR ( Amer) 118, Glucose 104 H, Calcium 9.9, Total Bilirubin 1.0, AST 24, ALT 20, Alkaline Phosphatase 86, Total Protein 7.2, Albumin 4.5, Globulin 2.7, Albumin/Globulin Ratio 1.7 04/11/21 14:35: Chlamy pneumoniae PCR Not detected, Adenovirus (PCR) Not detected, B. pertussis DNA (PCR) Not detected, Coronavirus OC43 (PCR) Not detected, Coronavirus HKU1 (PCR) Not detected, Coronavirus 229E (PCR) Not detected, SARS-CoV-2 (PCR) Not detected, Coronavirus NL63 (PCR) Not detected, Human Metapneumovir PCR Not detected, Influenza A (H1) PCR Not detected, Influ A (H1N1/09) PCR Not detected, Influenza A (H3) PCR Not detected, Influenza Type A (PCR) Not detected, Influenza Type B (PCR) Not detected, M. pneumoniae (PCR) Not detected, Parainfluenza 1 (PCR) Not detected, Parainfluenza 2 (PCR) Not detected, Parainfluenza 3 (PCR) Not detected, Parainfluenza 4 (PCR) Not detected, RSV (PCR) Not detected, Entero/Rhino (PCR) Not detected 04/11/21 14:42: Urine Color Yellow, Urine Appearance Clear, Urine pH 6.0, Ur Specific [place] 1.015, Urine Protein Negative, Urine Glucose (UA) Negative, Urine Ketones Trace, Urine Blood Negative, Urine Nitrate Negative, Urine Bilirubin Negative, Urine Urobilinogen 2.0, Ur Leukocyte Esterase 1+ A, Urine RBC Occasional, Urine WBC Occasional, Ur Squamous Epith Cells Occasional, Urine Bacteria None 04/11/21 15:25: Troponin I < 0.01, NT-Pro-B Natriuret Pep 139 04/12/21 05:59: WBC 11.9 H D, RBC 3.36 L, Hgb 11.7 L, Hct 33.4 L, MCV 99.4 H, MCH 35.0 H, MCHC 35.2, RDW 13.0, Plt Count 193, MPV 8.6, Neut % (Auto) 81.8 H, Lymph % (Auto) 10.9, [place] % (Auto) 5.2, Eos % (Auto) 1.9, Baso % (Auto) 0.2, Neut # (Auto) 9.7 H, Lymph # (Auto) 1.3, [place] # (Auto) 0.6, Eos # (Auto) 0.2, Baso # (Auto) 0.0 04/12/21 05:59: Sodium 132 L, Potassium 3.9, Chloride 102, Carbon Dioxide 27, Anion Gap 6.9, BUN 8 D, Creatinine 0.60, Estimated Creat Clear 48, Estimated GFR 97, Est GFR ( Amer) 118, Glucose 107 H, Calcium 9.3 04/12/21 05:59: Blood Type O Positive, Antibody Screen Negative - Constitutional no acute distress - Routine HEENT Exam Head: Present: normocephalic, atraumatic Eye: Present: EOMI ENT: Present: mucous membranes moist - Routine Neck Exam Present: supple, trachea midline - Routine Respiratory Exam Present: CTA bilaterally - Routine Cardiovascular Exam Present: RRR - Routine Abdominal Exam Present: soft, normoactive bowel sounds - Routine Extremities Exam Comments: On examination of her lower extremities, there is shortening of the right leg and the foot is externally rotated. On examination of the right hip the skin is normal and intact. No lacerations or abrasions noted. She has tenderness over the right hip. An
--- NOTE | 2021-04-12 13:36 | PC.NURSE ---
PATIENT WILL NEED A ROLLING WALKER RATER THAN A CANE AND A BEDSIDE COMMODE DUE TO GAIT AND MOBILITY ISSUES AND DISTANCE TO RESTROOM WITHIN THE HOME
--- NOTE | 2021-04-12 16:24 | P.PN_ITS ---
[facility] Anesthesia Checklist - Structural Data Admitted From: Inpatient Planned Operative Procedure/s: r kyler Consent for Planned Operative Procedure(s) Verified: Yes - Additional verifications Anesthesia Reactions: No Hx Blood Transfusions: No Blood Transfusion Reaction: No - Airway Assessment C-Spine Mobility Assessed: Yes TMJ Mobility Assessed: Yes Dentition: Edentulous - Neurological Assessment Level of Consciousness: Awake, Alert, Appropriate - Anesthesia Plan Anesthesia Risk discussed: Yes Anesthesia Plan: Verified ASA Class: II Anesthesia Type: MAC w/Spinal [facility] History I have reviewed the patient's past medical history: Yes Medical History: Reports:: Anxiety, Congestive Heart Failure, Coronary Artery Disease, Depression, Gastroesophageal Reflux Disease(GERD), Hyperlipidemia, Hypertension Denies:: Diabetes Mellitus Type 1, Diabetes Mellitus Type 2, Internal Pac emaker, Lung Disease, Seizures *Have you ever received a pneumonia vaccine?: Yes *Have you received a flu vaccine this season?: No Other Medical History: Reports: Arthritis, Other. Denies: Blood Transfusion Reaction Anesthesia experience/problems:: none Other Surgeries: Yes: Colonoscopy, Hysterectomy-Total, Other. No: Pacemaker Amputation: No Fractures: No - *Social History Smoking Status: Never smoker Alcohol Intake: never Alcohol Intake Frequency:: other Substance Use Type: denies use, other *Occupational Status:: retired *Travel in the last 8 weeks: None - Psychiatric History Pschychiatric History:: Reports:: Anxiety, Depression Family Hx:: No significant family history
--- NOTE | 2021-04-12 18:28 | HMH.ANESI ---
[facility] Anesthesia Record Part I Intake, IV Amount: 2,500 Estimated blood loss (mL): 300 Urine output (mL): 400 Blood Pressure: 109/53 SaO2: 93 Pulse Rate: 81 Respiratory Rate: 12 Temperature: 97.9 F Patient is:: Awake, Stable Stable to PACU at:: 18:20
--- NOTE | 2021-04-12 18:29 | XR_ITS ---
PROCEDURE INFORMATION: Exam: XR Right Hip Exam date and time: 04/12/2021 6:29 PM Age: 75 years old Clinical indication: Pain; Other: Post-op views; Prior surgery; Surgery date: Post-operative (0-2 days); Surgery type: Hip replacement TECHNIQUE: Imaging protocol: XR Right hip. Views: 2 or 3 views hip with pelvis when performed. COMPARISON: CR XR HIP RT 2-3V W/PELVIS 04/11/2021 2:07 PM FINDINGS: Bones/joints: Interval right hip arthroplasty. The alignment is anatomic. Subcutaneous emphysema. The acetabular screw projects through and acetabular ridge and is just outside the bony pelvis. A broken screw is demonstrated more medially. Soft tissues: See Bones/joints finding. IMPRESSION: Interval right hip arthroplasty. The alignment is anatomic. Subcutaneous emphysema. The acetabular screw projects through and acetabular ridge and is just outside the bony pelvis. A broken screw is demonstrated more medially.
--- NOTE | 2021-04-12 19:06 | PC.NURSE ---
pt arrived back to floor from surgery
--- NOTE | 2021-04-12 19:38 | HMH.OPNOTE ---
Date of procedure: 04/12/21 Pre-op Diagnosis:: 1. Closed, displaced fracture neck of femur, right hip 2. Osteoarthritis, right hip Post-op Diagnosis:: Same Procedure performed:: Uncemented total hip arthroplasty, right hip Surgeon:: Fermin Sutton MD Gunner'S Mate(s):: Lacie Newell TELEPHONE SERVICE ADVISER:: Gabriel Sanchez Anesthesia: spinal Estimated blood loss (mL): 300 Clinical Note:: Patient is a 75-year-old female who sustained a displaced intracapsular fracture neck of right femur following a fall at home yesterday. Patient usually walks independently without any walking aids. She has history of degenerative arthritis of both hip and knee joints. She denies loss of consciousness, chest pain and shortness of breath. Given the fracture pattern, her activity level and relatively younger age, following a detailed discussion, patient opted for a total hip arthroplasty to the right hip. The surgery is indicated to relieve pain and restore function. The operation is clinically indicated and is the standard of care for this type of fracture. Her medical history includes Anxiety, Depression, Gastroesophageal Reflux Disease(GERD), Hypertension. She is not a known diabetic and a non-smoker. Please refer to my consult note for full details. Operative findings:: Displaced sub capital femoral neck fracture of the right hip as noted on the preoperative hip x-rays. Early degenerative changes were noted in the hip joint. N the proximal femur bone quality is good. Operative note:: On the day of the procedure the patient and her family were met on the floor, and a physical examination was performed. The operating side and site were marked and initialed by me. I have reviewed the diagnosis, natural history and management options in detail including both the nonsurgical and surgical. Given the nature of the fracture, her age and activity level prior to the fall, I have recommended surgery in the form of a total hip arthroplasty for the right hip. I have discussed the procedure, risks and benefits, alternatives, potential complications and expected outcomes with the patient. The complications discussed include but are not limited to infection, injury to nerves and blood vessels, DVT and PE, femur fracture, limb length inequality, dislocation, implant failure, loosening, acetabular wear, osteolysis, periprosthetic femur fracture, heterotopic ossification, abductor weakness and a limp, incomplete relief of pain, incomplete return of function or motion, likely need for further surgery in future including revision, anesthetic/medical complications including heart attack, stroke, transfusion reactions and even . We discussed how any of these events can be devastating. We have discussed nonsurgical alternatives as well. We also discussed the postoperative course including the rehab and physical therapy required. Patient understood the risks, agreed to proceed with surgery, signed the consent form and no guarantees or assurances were given or implied. The patient was brought to the operating room and a spinal anesthesia was administered by the slip cover cutter. The patient was then transferred onto the operating table and positioned in the left lateral decubitus position with the right hip facing upwards. All the bony prominences were well-padded. The right lower extremity was then prepped (prepped with isopropyl alcohol followed by chlorhexidine) and draped in the usual sterile fashion. The entire operative team used isolation suits and room traffic was controlled. The surgical landmarks and incision was marked over the skin with a marking pen. [place] sterile drape was used to cover the operative site and isolate the perineum completely from the operative field. A preprocedure timeout was performed as per hospital protocol identifying the patient, correct surgery and correct site. Administration of prophylactic antibiotics (IV Ancef and vancomycin) was confirmed with the slip cover cutter. Patient also rec
--- NOTE | 2021-04-12 19:57 | PC.NURSE ---
DR. CLANCY AT BEDSIDE
[2021-04-13] VITALS (10 sets, daily range): BP systolic 99–127; BP diastolic 42–58; PULSE 70–79; RESP 16–19; TEMP 37.1–38.6; O2SAT 90–97; BMI 25.0
--- NOTE | 2021-04-13 05:43 | PC.NURSE ---
lab at bedside
[2021-04-13 06:04] LABS: Basophils % 0.1 % (0.1-2.0); Eosinophils # 0.1 K/mm3 (0.0-0.4); Eosinophils % 0.5 % (0.1-12.0); Hematocrit 27.2 % (37.0-47.0); Lymphocytes # 1.3 K/mm3 (0.7-4.5); Lymphocytes % 10.9 % (10-50); Mean Corpuscular HGB Conc 35.2 g/dL (31.8-35.4); Mean Corpuscular Hemoglobin 35.4 pg (27.0-31.2); Mean Corpuscular Volume 100.6 fl (81-99); Mean Platelet Volume 8.7 fl (7.4-10.4); Monocytes # 0.6 K/mm3 (0.1-1.0); Monocytes % 5.1 % (1.7-9.3); Neutrophils # 10.2 K/mm3 (1.8-7.8); Neutrophils % 83.3 % (37.0-80.0); Platelet Count 154 K/mm3 (142-424); Red Cell Distribution Width 13.1 % (11.5-17.5); White Blood Count 12.2 K/mm3 (4.8-10.8)
[2021-04-13 06:20] LABS: Anion Gap 3.5 mEq/L (5-15); Blood Urea Nitrogen 6 mg/dl (7-17); Calcium 8.6 mg/dl (8.4-10.2); Carbon Dioxide 27 mmol/L (22.0-30.0); Chloride 103 mmol/L (98-107); Creatinine Clearance Estimated 52 mL/min (50-200); Estimated Glomerular Filt Rate 120 ml/min (>60); GFR (African American) 146 ML/MIN (>60); Glucose 109 mg/dl (74-100); Potassium 3.5 mmoL/L (3.5-5.1); Sodium 130 mmol/L (136-145)
[2021-04-13 06:31] LABS: Hemoglobin 9.6 g/dL (12.2-16.2)
--- NOTE | 2021-04-13 10:19 | HMH.PTEV ---
Physical Therapy Evaluation Rehab PT IP Evaluation Start: 04/12/21 19:31 Freq: ONCE Status: Active Protocol: Document 04/13/21 10:14 [email or web address] (Rec: 04/13/21 10:19 [email or web address] [id number]) Subjective/History History History PT ADMITTED TO [facility] 75 YO FEMALE, FALL AT HOME, FX TO R HIP, UNDERWENT R [place] ON 04/12. Subjective Subjective PT REPORTS R HIP SORENESS, AND LBP THIS AM. Rehab PT IP Eval Objective Appearance Patient Behavior Appropriate,Cooperative Patient Orientation Person,Place,Time,Name,Age, Birthday,Situation Difficulty following instructions none Speech Pattern Clear,Appropriate,Coherent Ambulation Patient Able to Ambulate Yes Ambulation Observation IP General Gait Pattern Observation Decrease Weight Bear (R) Ambulation Distance (feet) 2 Ambulation Assistive Device Rolling Walker Ambulation Ability Moderate x 1 (50% assist) Balance Ability to Arise Able, uses arms to help Sitting Balance Leans or slides in chair Standing Balance Unsteady Dynamic Sitting Balance Ability Fair Dynamic Standing Balance Ability Fair Transfers Bed Transfer Ability Maximum x 1 (75% assist) Sit to Stand Bed Transfer Ability Maximum x 1 (75% assist) Pain Right Hip Pain Intensity 5 ROM All Extremities PT ROM Status WFL MMT All Extremities PT MMT WFL Rehab PT IP prob,goals,plan Problems Date of Evaluation: 04/13/21 PT IP Problems Bed Mobility,Transfers,Gait, Balance,Self care,Safety Rehab Potential Rehab Potential Good Equipment Needs Assistive Devices Rolling / Wheeled Walker Plan PT Intervention Plan Bed Mobility,Transfers,Gait, Balance,Self care,Safety, Therapeutic Exercise PT Plan Frequency BID Duration LOS Discharge Goals Bed Transfer Ability Moderate x 1 (50% assist) Sit to Stand Chair Transfer Ability Moderate x 1 (50% assist) Ambulation Assistive Device Rolling Walker Ambulation Distance (feet) 15 Discharge Plan PT Discharge Plan PT TO D/C TO HOME W/ASSISTANCE FROM SPOUSE, NO STEPS TO ENTER RESIDENCE, THEN WILL CONTINUE REHAB IN OP SETTING G -code Required No PHYSICIAN CERTIFICATION: I certify the specified therapy services for Nan Vásquez are required, authorized, and reviewed every 30 days.
--- NOTE | 2021-04-13 11:19 | P.PN_ITS ---
Internal Medicine - PN: Subj *Date: 04/13/21 *Time: 11:19 Interval history: pt with fever last pm - no specific c/o this am Exam Vital signs and Labs for Last 24 Hours: Temp Pulse Resp BP Pulse Ox 98.7 F 73 18 110/48 L 94 L 04/13/21 09:11 04/13/21 09:11 04/13/21 09:11 04/13/21 09:11 04/13/21 09:11 Laboratory Results - last 24 hr 04/13/21 05:47: WBC 12.2 H, RBC 2.70 L, Hgb 9.6 L D, Hct 27.2 L, MCV 100.6 H, MCH 35.4 H, MCHC 35.2, RDW 13.1, Plt Count 154, MPV 8.7, Neut % (Auto) 83.3 H, Lymph % (Auto) 10.9, [place] % (Auto) 5.1, Eos % (Auto) 0.5, Baso % (Auto) 0.1, Neut # (Auto) 10.2 H, Lymph # (Auto) 1.3, [place] # (Auto) 0.6, Eos # (Auto) 0.1, Baso # (Auto) 0.0 04/13/21 05:47: Sodium 130 L, Potassium 3.5, Chloride 103, Carbon Dioxide 27, Anion Gap 3.5 L, BUN 6 L, Creatinine 0.50 L, Estimated Creat Clear 52, Estimated GFR 120, Est GFR ( Amer) 146 D, Glucose 109 H, Calcium 8.6 I & O for Last 24 hours: Intake & Output 04/10/21 04/11/21 04/12/21 04/13/21 11:59 11:59 11:59 11:59 Intake Total 650 / 650 2500 / 2500 Output Total 1000 / 1000 1750 / 1750 Balance -350 / -350 750 / 750 Weight 147 lb 6 oz 150 lb Microbiology Reports for the Last 24 Hours: Microbiology 04/11/21 14:42 Urine,Clean Catch Urine Culture - Preliminary - Constitutional no acute distress - *Routine HEENT Exam Head: Present: normocephalic Eye: Present: EOMI, PERRL ENT: Present: mucous membranes dry - *Routine Neck Exam Present: supple - *Routine Respiratory Exam Present: CTA bilaterally - *Routine Cardiovascular Exam Present: RRR. Absent: murmur - *Routine Abdominal Exam Present: soft - *Routine Extremities Exam Present: full ROM - *Routine Skin Exam Present: intact - *Routine Neurological Exam Present: alert, CN II-XII intact - Routine Psychiatric Exam Present: normal affect Assessment and Plan (1) Closed right hip fracture Status: Acute Qualifiers: Encounter type: initial encounter Qualified Code(s): S72.001A - Fracture of unspecified part of neck of right femur, initial encounter for closed fracture Category: Medical Code(s): S72.001A - Fracture of unspecified part of neck of right femur, initial encounter for closed fracture
--- NOTE | 2021-04-13 18:08 | HMH.ORTHPN ---
Subjective Date: 04/13/21 Time: 15:00 Principal diagnosis: Right femur, right hip Interval history: Patient is status post right total hip arthroplasty post op day #1 following a displaced subcapital femoral neck fracture. Patient is lying down on the bed and says she is doing well. She reports that she had a fairly good night and reports no problems. Patient has minimal pain and says it's well-controlled with medication. No history of any nausea or vomiting. No history of any cough, chest pain, shortness of breath or palpitations. Patient says she is eating and drinking well. No history of any distal tingling or numbness. She reports that she got out of bed with the help of physical therapy and set her up in the chair for a period of time this morning. She did spike temperature overnight but but has been apyrexial since 4 AM this morning. PN: Obj Ex Vital signs: Temp Pulse Resp BP Pulse Ox 98.7 F 78 17 99/42 L 90 L 04/13/21 15:12 04/13/21 15:12 04/13/21 15:12 04/13/21 15:12 04/13/21 15:12 Narrative: Laboratory Results - last 24 hr 04/13/21 05:47: WBC 12.2 H, RBC 2.70 L, Hgb 9.6 L D, Hct 27.2 L, MCV 100.6 H, MCH 35.4 H, MCHC 35.2, RDW 13.1, Plt Count 154, MPV 8.7, Neut % (Auto) 83.3 H, Lymph % (Auto) 10.9, [place] % (Auto) 5.1, Eos % (Auto) 0.5, Baso % (Auto) 0.1, Neut # (Auto) 10.2 H, Lymph # (Auto) 1.3, [place] # (Auto) 0.6, Eos # (Auto) 0.1, Baso # (Auto) 0.0 04/13/21 05:47: Sodium 130 L, Potassium 3.5, Chloride 103, Carbon Dioxide 27, Anion Gap 3.5 L, BUN 6 L, Creatinine 0.50 L, Estimated Creat Clear 52, Estimated GFR 120, Est GFR ( Amer) 146 D, Glucose 109 H, Calcium 8.6 Intake & Output 05/27/04/12/21 04/13/21 04/14/21 11:59 11:59 11:59 11:59 Intake Total 650 / 650 2740 / 2740 240 / 240 Output Total 1000 / 1000 1750 / 1750 2500 / 2500 Balance -350 / -350 990 / 990 -2260 / -2260 Weight 147 lb 6 oz 150 lb Exam General appearance: alert, active, awake, no acute distress Cardiovascular: regular rate & rhythm, normal peripheral pulses Respiratory: No respiratory distress noted, speaks in full sentences ABD: soft and non tender Neuro: alert, awake, oriented x 3 Psych: Appropriate mood and affect Genitourinary: Catheter in situ. On examination of the lower extremities the limb lengths are equal. Thigh and calf are soft and nontender. On examination of the right hip the dressings are clean, dry and intact. There is soakage of the dressings. Distal pulses are 2+ bilaterally. Distal sensation is intact to light touch throughout. No motor deficits noted distally. - Urinary Catheter Management Farris Cath placed during this visit: no Progress Note: A&P (1) Closed right hip fracture Status: Acute Assessment and Plan for All Diagnoses:: I have reviewed the clinical findings and progress with the patient and her daughter. Patient is doing well and reports no problems. Patient started mobilization with physical therapy weightbearing as tolerated on the right side and advised her to continue the same. Continue DVT prophylaxis. Continue abduction pillow when in bed and continue standard precautions for the posterior approach hip replacement. Discontinue IV fluids and discontinue the urinary catheter. Continue medical management as per Dr. Aparicio.
--- NOTE | 2021-04-13 18:47 | PC.NURSE ---
Pt has c/o right hip pain x3 this shift and was medicated by ASHISH w/ favorable results. Pt also c/o nausae x1 and was medicated per ASHISH. Farris cath d/c this shift. Pt was up to chair for dinner this shift. Pt required x1 assist w/ walker. No other acute changes or complaints at this time. Will continue to monitor
--- NOTE | 2021-04-14 02:57 | PC.NURSE ---
No acute changes. Pt is A&O x3. Has slept well this shift. Has not c/o any discomfort this shift. Has been up to BSC with assist x2 and tolerated well. Pt has not voided well this shift. Will attempt in AM to assist pt to BSC again followed by getting up to chair for breakfast. No other concerns. Will continue to monitor.
[2021-04-14 04:00] VITALS: BP 119/56; PULSE 76; RESP 18; TEMP 37.4; O2SAT 93
[2021-04-14 04:55] VITALS: BMI 24.8
[2021-04-14 07:45] LABS: Basophils % 0.1 % (0.1-2.0); Eosinophils % 0.2 % (0.1-12.0); Hematocrit 26.4 % (37.0-47.0); Hemoglobin 9.4 g/dL (12.2-16.2); Lymphocytes # 1.7 K/mm3 (0.7-4.5); Lymphocytes % 12.9 % (10-50); Mean Corpuscular HGB Conc 35.7 g/dL (31.8-35.4); Mean Corpuscular Hemoglobin 35.3 pg (27.0-31.2); Mean Corpuscular Volume 98.8 fl (81-99); Mean Platelet Volume 9.1 fl (7.4-10.4); Monocytes # 0.8 K/mm3 (0.1-1.0); Neutrophils # 10.3 K/mm3 (1.8-7.8); Neutrophils % 80.7 % (37.0-80.0); Platelet Count 165 K/mm3 (142-424); Red Blood Count 2.67 M/mm3 (4.20-5.40); White Blood Count 12.8 K/mm3 (4.8-10.8)
[2021-04-14 07:53] LABS: Anion Gap 4.4 mEq/L (5-15); Blood Urea Nitrogen 8 mg/dl (7-17); Calcium 9.1 mg/dl (8.4-10.2); Carbon Dioxide 31 mmol/L (22.0-30.0); Chloride 102 mmol/L (98-107); Creatinine Clearance Estimated 52 mL/min (50-200); Estimated Glomerular Filt Rate 120 ml/min (>60); GFR (African American) 146 ML/MIN (>60); Glucose 115 mg/dl (74-100); Potassium 3.4 mmoL/L (3.5-5.1); Sodium 134 mmol/L (136-145)
[2021-04-14 08:00] VITALS: BP 107/49; PULSE 72; RESP 16; TEMP 37.6; O2SAT 90
[2021-04-14 11:42] VITALS: BP 110/54; PULSE 68; RESP 16; TEMP 37.2; O2SAT 92
--- NOTE | 2021-04-14 12:02 | HMH.ACPN2 ---
Internal Medicine - PN: Subj *Date: 04/14/21 *Time: 12:02 Interval history: doing better and oob- has gerd and possible uti Exam Vital signs and Labs for Last 24 Hours: Temp Pulse Resp BP Pulse Ox 98.9 F 68 16 110/54 L 92 L 04/14/21 11:42 04/14/21 11:42 04/14/21 11:42 04/14/21 11:42 04/14/21 11:42 Laboratory Results - last 24 hr 04/11/21 14:42: Urine Color Yellow, Urine Appearance Clear, Urine pH 6.0, Ur Specific [place] 1.015, Urine Protein Negative, Urine Glucose (UA) Negative, Urine Ketones Trace, Urine Blood Negative, Urine Nitrate Negative, Urine Bilirubin Negative, Urine Urobilinogen 2.0, Ur Leukocyte Esterase 1+ A, Urine RBC Occasional, Urine WBC Occasional, Ur Squamous Epith Cells Occasional, Urine Bacteria None 04/14/21 07:34: WBC 12.8 H, RBC 2.67 L, Hgb 9.4 L, Hct 26.4 L, MCV 98.8, MCH 35.3 H, MCHC 35.7 H, RDW 13.0, Plt Count 165, MPV 9.1, Neut % (Auto) 80.7 H, Lymph % (Auto) 12.9, [place] % (Auto) 6.0, Eos % (Auto) 0.2, Baso % (Auto) 0.1, Neut # (Auto) 10.3 H, Lymph # (Auto) 1.7, [place] # (Auto) 0.8, Eos # (Auto) 0.0, Baso # (Auto) 0.0 04/14/21 07:34: Sodium 134 L, Potassium 3.4 L, Chloride 102, Carbon Dioxide 31 H, Anion Gap 4.4 L, BUN 8 D, Creatinine 0.50 L, Estimated Creat Clear 52, Estimated GFR 120, Est GFR ( Amer) 146, Glucose 115 H, Calcium 9.1 I & O for Last 24 hours: Intake & Output 04/12/21 04/13/21 04/14/21 04/15/21 11:59 11:59 11:59 11:59 Intake Total 650 / 650 2740 / 2740 360 / 360 Output Total 1000 / 1000 1750 / 1750 2500 / 2500 Balance -350 / -350 990 / 990 -2140 / -2140 Weight 147 lb 6 oz 150 lb 149 lb 1 oz Microbiology Reports for the Last 24 Hours: Microbiology 04/11/21 14:42 Urine,Clean Catch Urine Culture - Preliminary Gram Negative Rods - Constitutional no acute distress - *Routine HEENT Exam Head: Present: normocephalic Eye: Present: EOMI, PERRL ENT: Present: mucous membranes dry - *Routine Neck Exam Present: supple - *Routine Respiratory Exam Present: CTA bilaterally - *Routine Cardiovascular Exam Present: RRR, murmur - *Routine Abdominal Exam Present: soft - *Routine Extremities Exam Absent: calf tenderness - *Routine Skin Exam Present: intact - *Routine Neurological Exam Present: alert, CN II-XII intact - Routine Psychiatric Exam Present: normal affect Assessment and Plan (1) Closed right hip fracture Status: Acute Qualifiers: Encounter type: initial encounter Qualified Code(s): S72.001A - Fracture of unspecified part of neck of right femur, initial encounter for closed fracture Category: Medical Code(s): S72.001A - Fracture of unspecified part of neck of right femur, initial encounter for closed fracture (2) GERD (gastroesophageal reflux disease) Status: Acute Qualifiers: Esophagitis bleeding: unspecified whether hemorrhage Category: Medical Code(s): K21.9 - Gastro-esophageal reflux disease without esophagitis (3) Anemia Status: Acute Qualifiers: Anemia type: unspecified type Qualified Code(s): D64.9 - Anemia, unspecified Category: Medical Code(s): D64.9 - Anemia, unspecified (4) UTI (urinary tract infection) Status: Acute Qualifiers: Urinary tract infection type: site unspecified Hematuria presence: without hematuria Qualified Code(s): N39.0 - Urinary tract infection, site not specified Category: Medical Code(s): N39.0 - Urinary tract infection, site not specified
[2021-04-14 15:38] VITALS: BP 113/60; PULSE 77; RESP 17; TEMP 38; O2SAT 96
[2021-04-14 18:00] VITALS: O2SAT 93
--- NOTE | 2021-04-14 18:22 | PC.NURSE ---
Pt has rested well today. For the better part of the morning, pt was up to the chair. Pt participated w/ PT this shift and did well. Pt has had a temp of 100.4 this shift and was treated w/ PRN tylenol. No other acute changes or complaints at this time. Will continue to monitor.
[2021-04-14 20:00] VITALS: BP 97/45; PULSE 72; RESP 15; TEMP 38.1; O2SAT 94
--- NOTE | 2021-04-14 23:16 | HMH.ORTHPN ---
Subjective Date: 04/14/21 Time: 23:00 Principal diagnosis: Right femur, right hip Interval history: Patient is status post right total hip arthroplasty for fracture neck of femur, post op day #2. Patient is lying down in the bed and says she is doing well and reports no problems. Patient has minimal pain and says it's well-controlled with medication. No history of any nausea or vomiting. No history of any cough, chest pain, shortness of breath or palpitations. Patient says she is eating and drinking well. No history of any distal tingling or numbness. She says she is mobilizing well with walker. Patient is noted to have UTI and she is started on IV Rocephin by Dr. Aparicio. PN: Obj Ex Vital signs: Temp Pulse Resp BP Pulse Ox 100.5 F H 72 15 97/45 L 94 L 04/14/21 20:00 04/14/21 20:00 04/14/21 20:00 04/14/21 20:00 04/14/21 20:00 Narrative: Laboratory Results - last 24 hr 04/11/21 14:42: Urine Color Yellow, Urine Appearance Clear, Urine pH 6.0, Ur Specific [place] 1.015, Urine Protein Negative, Urine Glucose (UA) Negative, Urine Ketones Trace, Urine Blood Negative, Urine Nitrate Negative, Urine Bilirubin Negative, Urine Urobilinogen 2.0, Ur Leukocyte Esterase 1+ A, Urine RBC Occasional, Urine WBC Occasional, Ur Squamous Epith Cells Occasional, Urine Bacteria None 04/14/21 07:34: WBC 12.8 H, RBC 2.67 L, Hgb 9.4 L, Hct 26.4 L, MCV 98.8, MCH 35.3 H, MCHC 35.7 H, RDW 13.0, Plt Count 165, MPV 9.1, Neut % (Auto) 80.7 H, Lymph % (Auto) 12.9, [place] % (Auto) 6.0, Eos % (Auto) 0.2, Baso % (Auto) 0.1, Neut # (Auto) 10.3 H, Lymph # (Auto) 1.7, [place] # (Auto) 0.8, Eos # (Auto) 0.0, Baso # (Auto) 0.0 04/14/21 07:34: Sodium 134 L, Potassium 3.4 L, Chloride 102, Carbon Dioxide 31 H, Anion Gap 4.4 L, BUN 8 D, Creatinine 0.50 L, Estimated Creat Clear 52, Estimated GFR 120, Est GFR ( Amer) 146, Glucose 115 H, Calcium 9.1 Microbiology 04/11/21 14:42 Urine,Clean Catch Urine Culture - Preliminary Gram Negative Rods Intake & Output 04/12/21 04/13/21 04/14/21 04/15/21 11:59 11:59 11:59 11:59 Intake Total 650 / 650 2740 / 2740 480 / 480 530 / 530 Output Total 1000 / 1000 1750 / 1750 2500 / 2500 1075 / 1075 Balance -350 / -350 990 / 990 -2020 / -2020 -545 / -545 Weight 147 lb 6 oz 150 lb 149 lb 1 oz Exam General appearance: alert, active, awake, no acute distress Cardiovascular: regular rate & rhythm, normal peripheral pulses Respiratory: No respiratory distress noted, speaks in full sentences ABD: soft and non tender Neuro: alert, awake, oriented x 3 Psych: Appropriate mood and affect On examination of the lower extremities the limb lengths are equal. Thigh and calf are soft and nontender. On examination of the right hip the dressings are clean, dry and intact. The dressings are changed by me. There is no soakage of the dressings. The wound looks clean and healthy. No evidence of any infection or other complications is noted. Distal pulses are 2+. Distal sensation is intact to light touch throughout. No motor deficits noted distally. - Urinary Catheter Management Farris Cath placed during this visit: no Progress Note: A&P (1) Closed right hip fracture Status: Acute (2) GERD (gastroesophageal reflux disease) Status: Acute (3) Anemia Status: Acute (4) UTI (urinary tract infection) Status: Acute Assessment and Plan for All Diagnoses:: I have reviewed the clinical findings and progress with the patient. Patient is doing well from an orthopedic standpoint and reports no problems. Patient is mobilizing weightbearing as tolerated on the right side with the walker and to continue the same. Continue DVT prophylaxis. Continue abduction pillow when in bed and continue standard precautions for the posterior approach hip replacement. Recommend DVT prophylaxis for 6 weeks postop- the appropriate agents include Lovenox, Aspirin 325 mg, Xarelto (Rivaroxaban), Eliquis (apixaban) and Coum
[2021-04-15 04:00] VITALS: BP 121/55; PULSE 77; RESP 17; TEMP 37.8; O2SAT 94
--- NOTE | 2021-04-15 04:01 | PC.NURSE ---
No acute changes noted. Pt is A&O x3. Has ambulated to [facility] with assist x1. Tolerated well. DSG changed to (R) hip via MD Sutton. No drainge noted. Incision site clean. Pt has not c/o any pain this shift. Declined any medication for pain. VSS. Pt remains on RA. BS active. Medications administered per jan. No other concerns. Will continue to monitor.
[2021-04-15 04:54] VITALS: BMI 24.5
[2021-04-15 06:21] LABS: Basophils % 0.1 % (0.1-2.0); Eosinophils # 0.2 K/mm3 (0.0-0.4); Eosinophils % 2.2 % (0.1-12.0); Hemoglobin 9.2 g/dL (12.2-16.2); Lymphocytes # 1.8 K/mm3 (0.7-4.5); Lymphocytes % 17.1 % (10-50); Mean Corpuscular HGB Conc 35.3 g/dL (31.8-35.4); Mean Corpuscular Hemoglobin 35.4 pg (27.0-31.2); Mean Corpuscular Volume 100.3 fl (81-99); Mean Platelet Volume 8.5 fl (7.4-10.4); Monocytes # 0.6 K/mm3 (0.1-1.0); Monocytes % 6.1 % (1.7-9.3); Neutrophils # 7.9 K/mm3 (1.8-7.8); Neutrophils % 74.5 % (37.0-80.0); Platelet Count 198 K/mm3 (142-424); Red Blood Count 2.59 M/mm3 (4.20-5.40); Red Cell Distribution Width 12.9 % (11.5-17.5); White Blood Count 10.6 K/mm3 (4.8-10.8)
[2021-04-15 06:23] LABS: Anion Gap 4.6 mEq/L (5-15); Blood Urea Nitrogen 7 mg/dl (7-17); Calcium 9.2 mg/dl (8.4-10.2); Carbon Dioxide 31 mmol/L (22.0-30.0); Chloride 102 mmol/L (98-107); Creatinine Clearance Estimated 51 mL/min (50-200); Estimated Glomerular Filt Rate 156 ml/min (>60); GFR (African American) 188 ML/MIN (>60); Glucose 110 mg/dl (74-100); Potassium 3.6 mmoL/L (3.5-5.1); Sodium 134 mmol/L (136-145)
[2021-04-15 07:42] VITALS: BP 105/56; PULSE 80; RESP 18; TEMP 36.9; O2SAT 98
--- NOTE | 2021-04-15 10:25 | HMH.ACPN2 ---
Internal Medicine - PN: Subj *Date: 04/15/21 *Time: 11:51 Interval history: pt laying in bed states no c/o. pt states she wishes to go home and not to rehab when ready for dc Exam Vital signs and Labs for Last 24 Hours: Temp Pulse Resp BP Pulse Ox 98.4 F 80 18 105/56 L 98 04/15/21 07:42 04/15/21 07:42 04/15/21 07:42 04/15/21 07:42 04/15/21 07:42 Laboratory Results - last 24 hr 04/15/21 06:07: WBC 10.6, RBC 2.59 L, Hgb 9.2 L, Hct 26.0 L, MCV 100.3 H, MCH 35.4 H, MCHC 35.3, RDW 12.9, Plt Count 198, MPV 8.5, Neut % (Auto) 74.5, Lymph % (Auto) 17.1, [place] % (Auto) 6.1, Eos % (Auto) 2.2, Baso % (Auto) 0.1, Neut # (Auto) 7.9 H, Lymph # (Auto) 1.8, [place] # (Auto) 0.6, Eos # (Auto) 0.2, Baso # (Auto) 0.0 04/15/21 06:07: Sodium 134 L, Potassium 3.6, Chloride 102, Carbon Dioxide 31 H, Anion Gap 4.6 L, BUN 7, Creatinine 0.40 L, Estimated Creat Clear 51, Estimated GFR 156, Est GFR ( Amer) 188 D, Glucose 110 H, Calcium 9.2 I & O for Last 24 hours: Intake & Output 04/12/21 04/13/21 04/14/21 04/15/21 11:59 11:59 11:59 11:59 Intake Total 650 / 650 2740 / 2740 480 / 480 830 / 830 Output Total 1000 / 1000 1750 / 1750 2500 / 2500 2225 / 2225 Balance -350 / -350 990 / 990 -2019 / -2020 -1395 / -1395 Weight 147 lb 6 oz 150 lb 149 lb 1 oz 147 lb 2 oz Microbiology Reports for the Last 24 Hours: Microbiology 04/11/21 14:42 Urine,Clean Catch Urine Culture - Final Stenotrophomonas maltophilia 04/12/21 23:23 Blood Blood Culture - Preliminary NO GROWTH AFTER 48 HOURS 04/12/21 23:18 Blood Blood Culture - Preliminary NO GROWTH AFTER 48 HOURS - Constitutional no acute distress - *Routine HEENT Exam Head: Present: normocephalic Eye: Present: PERRL ENT: Present: mucous membranes moist - *Routine Neck Exam Present: supple. Absent: lymphadenopathy - *Routine Respiratory Exam Present: CTA bilaterally - *Routine Cardiovascular Exam Present: RRR - *Routine Abdominal Exam Present: soft, normoactive bowel sounds. Absent: tenderness - *Routine Extremities Exam Absent: cyanosis, clubbing, edema Comments: dressing in place - *Routine Skin Exam Present: warm. Absent: rash Comments: dressing c/d/i - *Routine Neurological Exam Present: alert, oriented X3 - Routine Psychiatric Exam Present: normal affect Assessment and Plan (1) Closed right hip fracture Status: Acute Qualifiers: Encounter type: initial encounter Qualified Code(s): S72.001A - Fracture of unspecified part of neck of right femur, initial encounter for closed fracture Category: Medical Code(s): S72.001A - Fracture of unspecified part of neck of right femur, initial encounter for closed fracture (2) GERD (gastroesophageal reflux disease) Status: Acute Qualifiers: Esophagitis bleeding: unspecified whether hemorrhage Category: Medical Code(s): K21.9 - Gastro-esophageal reflux disease without esophagitis (3) Anemia Status: Acute Qualifiers: Anemia type: unspecified type Qualified Code(s): D64.9 - Anemia, unspecified Category: Medical Code(s): D64.9 - Anemia, unspecified (4) UTI (urinary tract infection) Status: Acute Qualifiers: Urinary tract infection type: site unspecified Hematuria presence: without hematuria Qualified Code(s): N39.0 - Urinary tract infection, site not specified Category: Medical Code(s): N39.0 - Urinary tract infection, site not specified (5) Infection due to Stenotrophomonas maltophilia Status: Acute Category: Medical Code(s): A49.8 - Other bacterial infections of unspecified site - Assessment and plan all Dx Assessment and Plan for all problems:: rounded with dr parsons all order per dr parsons uti bug i&D. started on bactrium poss dc in am labs in am
[2021-04-15 11:13] VITALS: BP 113/59; PULSE 74; RESP 16; TEMP 36.5; O2SAT 97
--- NOTE | 2021-04-15 14:37 | DIET.NUTRFU ---
PO intakes 50% + BID supplements. Pt states she is feeling/eating better today. No changes nutritional care plan at this time, continuing to monitor.
[2021-04-15 15:07] VITALS: BP 100/52; PULSE 66; RESP 18; TEMP 37.3; O2SAT 98
--- NOTE | 2021-04-15 17:55 | PC.NURSE ---
IV Access loss. Attempted to reinsert PIV and pt refused to be stuck again. immanuel Gibson for MD Aparicio notified and is ok w/ pt having no PIV d/t potential discharge tomorrow morning.
[2021-04-15 20:00] VITALS: BP 131/50; PULSE 68; RESP 14; TEMP 36.9; O2SAT 90
--- NOTE | 2021-04-16 03:06 | PC.NURSE ---
Patient VS WNL, denies pain. Call light within reach bed at lowest level; will continue to monitor.
[2021-04-16 04:00] VITALS: BP 119/57; PULSE 71; RESP 17; TEMP 36.6; O2SAT 95
[2021-04-16 05:00] VITALS: BMI 24.5
[2021-04-16 06:19] LABS: Basophils % 0.3 % (0.1-2.0); Eosinophils # 0.3 K/mm3 (0.0-0.4); Eosinophils % 2.8 % (0.1-12.0); Hematocrit 26.5 % (37.0-47.0); Hemoglobin 9.4 g/dL (12.2-16.2); Lymphocytes # 1.8 K/mm3 (0.7-4.5); Lymphocytes % 18.6 % (10-50); Mean Corpuscular HGB Conc 35.5 g/dL (31.8-35.4); Mean Corpuscular Hemoglobin 35.1 pg (27.0-31.2); Mean Platelet Volume 8.2 fl (7.4-10.4); Monocytes # 0.6 K/mm3 (0.1-1.0); Monocytes % 6.5 % (1.7-9.3); Neutrophils # 6.9 K/mm3 (1.8-7.8); Neutrophils % 71.8 % (37.0-80.0); Platelet Count 230 K/mm3 (142-424); Red Blood Count 2.68 M/mm3 (4.20-5.40); Red Cell Distribution Width 12.8 % (11.5-17.5); White Blood Count 9.7 K/mm3 (4.8-10.8)
[2021-04-16 06:34] LABS: Chloride 101 mmol/L (98-107); Potassium 3.8 mmoL/L (3.5-5.1); Sodium 135 mmol/L (136-145)
[2021-04-16 06:37] LABS: Anion Gap 8.8 mEq/L (5-15); Blood Urea Nitrogen 8 mg/dl (7-17); Carbon Dioxide 29 mmol/L (22.0-30.0); Creatinine Clearance Estimated 51 mL/min (50-200); Estimated Glomerular Filt Rate 120 ml/min (>60); GFR (African American) 146 ML/MIN (>60)
[2021-04-16 06:38] LABS: Calcium 9.6 mg/dl (8.4-10.2); Glucose 108 mg/dl (74-100)
[2021-04-16 08:00] VITALS: PULSE 76; RESP 17; O2SAT 97
[2021-04-16 08:25] VITALS: BP 128/65; PULSE 76; RESP 17; TEMP 37; O2SAT 97
--- NOTE | 2021-04-16 08:55 | HMH.DCSUM ---
General - General Admission date:: 04/11/21 Discharge date: 04/16/21 HPI HPI: 75-year-old female presented to [facility] ED last evening with increased pain of the right hip and leg area. patient states she was sweeping and mopping the floor when she lost her balance tripping over her feet and falling to the floor. X-ray was performed on the right hip which revealed a right subcapital femoral neck fracture. . Patient denies losing consciousness at that time. Patient admitted to [facility] for hip fracture. Orthopedic surgeon has consulted and Cardiology was consulted due to mild congestive heart failure noted on chest x-ray and preop evaluation. Hospital Course Hospital Course: 75-year-old female presented to [facility] ED last evening with increased pain of the right hip and leg area. patient states she was sweeping and mopping the floor when she lost her balance tripping over her feet and falling to the floor. X-ray was performed on the right hip which revealed a right subcapital femoral neck fracture. . Patient denies losing consciousness at that time. Patient admitted to [facility] for hip fracture. Orthopedic surgeon has consulted and Cardiology was consulted due to mild congestive heart failure noted on chest x-ray and preop evaluation. 04/11/21 R Hip: FINDINGS: Impacted right subcapital femoral neck fracture. There is foreshortening approximately 12 mm. The femoral head appears in place. No significant displacement. IMPRESSION: Mildly impacted right subcapital femoral neck fracture Dictated by: Patrick Clark 04/11/21 CXR: FINDINGS: Cardiomegaly with mild pulmonary venous congestion Lucency noted along the left lateral hemithorax suggesting skin fold artifact. No lobar consolidation or collapse. There is a small hiatal hernia. There is upper thoracic curvature convex right and lumbar curvature convex left. IMPRESSION: Mild CHF Dictated by: Patrick Clark 04/11/21 ECHO: Conclusion 1. Mildly enlarged left atrium, normal left ventricular size, mild concentric left ventricular hypertrophy, visually estimated ejection fraction 55% with no regional wall motion abnormality, grade 1 diastolic dysfunction seen without tissue Doppler evidence of raise left atrial pressure. 2. Thickened and calcified aortic valve without aortic stenosis or aortic insufficiency 3. Mild mitral and tricuspid regurgitation, calculated right ventricular systolic pressure is 44 mmHg. 4. No significant pericardial effusion noted, inferior vena cava is normal size with normal inspiratory collapse. Electronically signed by : Vidal Noble Cardiology has seen and recommends: 1. Patient was admitted to [facility] with right subcapital femoral neck fracture. Cardiology was consulted due to mild congestive heart failure noted on chest x-ray. Patient just recently saw Dr. Myles road grader in [place] and underwent cardiac testing. Patient states cardiac testing was normal. Echocardiogram revealed EF 55% with no wall motion abnormality with mild MR and TR noted. 2. 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 This will be deferred to PCP and orthopedic surgeon. 3. History of essential hypertension. Stable 4. Patient is at a low and acceptable risk from a cardiac standpoint to proceed with her elective hip surgery. Please notify cardiology of any changes in patient status. 5. Patient does wish to follow-up with Dr. Myles at her scheduled appt in April 2020. 6. History of congestive heart failure. Dr. Ortiz did place patient on a spironolactone at last appointment. Management of CHF per Dr. Myles. Ortho has seen: An Uncemented total hip arthroplasty, right hip was performed for Closed, displaced fracture neck of femur, right hip Osteoarthritis, right hip Ortho Rec: I have reviewed the clinical findings and progress wi
--- NOTE | 2021-04-16 10:39 | HMH.OTEV ---
OT Inpatient Evaluation Rehab OT IP Evaluation Start: 04/12/21 19:31 Freq: ONCE Status: Complete Protocol: Document 04/16/21 10:35 [facility] (Rec: 04/16/21 10:39 [facility] [id number]) Rehab OT IP Assessment Subjective History Pt oriented x 3 on arrival. Pt agreeable to engage in therapy evaluation. Pt was admitted via ED on 04/11/21 due to fall at home with right hip fx. Pt reports she was sweeping the floor when she fell. Pt has a past medical history of Anxiety, depression , GERD, and HTN. Pt required an uncemented R total hip arthroplasty on 04/12/21. Pt reports prior to fall she lived at home with her . Pt claims she was indepenent with all ADLs and IADLs. She did not require AE during ambulation. Subjective I could do whatever I wanted. Objective Patient Orientation Person,Place,Birthday Upper Extremity Gross ROM WFL Bed Mobility bed mobility-scooting,bed mobility - supine/sit,bed mobility - rolling Assist Level Contact Guard/Hand Hold Transfer Training Sit/Stand Transfer Assist Level Contact Guard/Hand Hold Chair Transfer Ability Contact Guard/Hand Hold Chair Transfer Technique Sit to/from Ambulatory Chair Transfer Assistive Devices Rolling Walker Rehab OT IP prob,goals,plan Problems Date of Evaluation: 04/16/21 OT IP Problems Bed Mobility,Transfers,Gait, Balance,Self care,Safety Rehab Potential Rehab Potential Good Equipment Needs Assistive Devices Rolling / Wheeled Walker Plan OT intervention Plan Bed Mobility,Transfers,Gait, Balance,Self care,Safety, Therapeutic Exercise OT Plan Frequency BID Duration LOS Discharge Goals Bed Mobility Ability Standby Assistance Sit to Stand Chair Transfer Ability Supervision/Stand by Chair Transfer Ability Supervision/Stand by Chair Transfer Technique Sit to/from Ambulatory Chair Transfer Assistive Devices Rolling Walker Feeding Ability Assist with Tray Set Up Lower Body Dressing Ability
[2021-04-16 11:45] VITALS: BP 130/87; PULSE 91; TEMP 36.8
--- NOTE | 2021-04-16 11:45 | HMH.ANESII ---
[facility] Anesthesia Record Part II Discharge Time: 18:50 Destination: Medical Surgical Department PACU nurse assessment reviewed?: Yes Patient Condition:: Good Anesthesia Complications:: None Swallowing reflex intact?: Yes Cyanosis?: No Blood Pressure: 130/87 Pulse Rate: 91 Temperature: 98.2 F Mental Status: Alert & Oriented Pain level:: 0 Nausea and/or vomitting:: None Intake, IV Amount: 0
== END 2021-04-16 11:25 | disposition home health service (06) ==
LOC: ER 14:25 → 2ND 14:58
PROVIDERS: Nurse Practitioner Family; Orthopaedic Surgery; Admitting Provider Family Medicine; Emergency Provider Emergency Medicine; PCP Internal Medicine; Visit Provider Family Medicine
DX: S72.011A Unspecified intracapsular fracture of right femur, initial encounter for closed fracture (principal); W01.0XXA Fall on same level from slipping, tripping and stumbling without subsequent striking against object, initial encounter; Y93.E5 Activity, floor mopping and cleaning; Y92.019 Unspecified place in single-family (private) house as the place of occurrence of the external cause; I11.0 Hypertensive heart disease with heart failure; I50.9 Heart failure, unspecified; I25.10 Atherosclerotic heart disease of native coronary artery without angina pectoris; N39.0 Urinary tract infection, site not specified; D64.9 Anemia, unspecified; K21.9 Gastro-esophageal reflux disease without esophagitis; Z79.899 Other long term (current) drug therapy; Z79.82 Long term (current) use of aspirin; Z88.0 Allergy status to penicillin
CPT/HCPCS: 27130; 36415; 71045; 73502; 80048; 80053; 81001; 83880; 84484; 85007; 85025; 86850; 87040; 87086; 87088; 87186; 87581; 87633; 87798; 93005; 93306; 94761; 96374; 96375; 96376; 97116; 97166; 97530; 99284; C1713; C1766; C1776; G0378; J2405; J2704; J3370

== ENCOUNTER → 2021-04-26 09:26 | Outpatient (CLI) | payer MEDICARE, MEDICAID, SELFPAY ==
--- NOTE | 2021-04-26 09:33 | XR_ITS ---
PROCEDURE: XR HIP RT 2-3V W/PELVIS CLINICAL INDICATION: s/p RT AMERICO follow-up hip replacement COMPARISON: CR XR HIP RT 2-3V W/PELVIS from 04/11/2021 CR XR HIP RT 2-3V W/PELVIS from 04/12/2021 FINDINGS: Status post total right hip arthroplasty with good alignment. Previously the right lateral acetabular screw projected through the acetabular ridge into the soft tissues. This is not demonstrated on today's image. It is uncertain whether the patient had additional surgery or whether this is secondary to some difference in positioning. Please correlate with clinical parameters. Lumbar scoliosis convex left. IMPRESSION: Status post right hip replacement as described above with good alignment Dictated by: Patrick Clark MD 04/26/2021 11:03 Patrick Clark MD in [place] 04/26/2021 11:03
== END ==
PROVIDERS: PCP Internal Medicine; Visit Provider Orthopaedic Surgery
DX: S72.001A Fracture of unspecified part of neck of right femur, initial encounter for closed fracture (principal)
CPT/HCPCS: 73502

== ENCOUNTER → 2021-05-13 13:05 | Outpatient (CLI) | payer MEDICARE, SELFPAY ==
--- NOTE | 2021-05-13 13:08 | XR_ITS ---
PROCEDURE: XR DEXA AXIAL SKELETON CLINICAL HISTORY: POST MENOPAUSAL Rt hip fx COMPARISON: No exams were available for comparison FINDINGS: The right forearm BMD is 0.509 with a T-score of -3.1. The left hip BMD is 0.479 with a T-score of -3.8. The lumbar spine BMD is 0.804 with a T-score of -2.2. IMPRESSION: This patient is considered osteoporotic according to the World Health Organization criteria. Fracture risk is high. Treatment is advised. Based on these results a follow-up exam is recommended in 1 year. Dictated by: Patrick Clark MD 05/14/2021 07:57 Patrick Clark MD in [place] 05/14/2021 07:57
== END ==
PROVIDERS: PCP Internal Medicine; Visit Provider Internal Medicine
DX: Z13.820 Encounter for screening for osteoporosis (principal); Z78.0 Asymptomatic menopausal state
CPT/HCPCS: 77080

== ENCOUNTER → 2021-05-24 11:36 | Outpatient (CLI) | payer MEDICARE, MEDICAID, SELFPAY ==
--- NOTE | 2021-05-24 11:42 | XR_ITS ---
PROCEDURE: XR KNEE RT 4V CLINICAL INDICATION: BL knee pain COMPARISON: CR XR KNEE LT 3V from 01/16/2020 CR XR KNEE RT 3V from 01/16/2020 CR XR KNEE RT 4V from 04/27/2020 CR XR KNEE LT 4V from 04/27/2020 FINDINGS: No fracture or dislocation. No lytic or blastic change. There is normal mineralization. There are severe osteoarthritic changes of the medial compartment and mild osteoarthritis of the patellofemoral joint and lateral compartment. Other findings:None. IMPRESSION: Severe osteoarthritis of the medial compartment which appears slightly progressed Dictated by: Patrick Clark MD 05/24/2021 12:08 Patrick Clark MD in [place] 05/24/2021 12:08
--- NOTE | 2021-05-24 11:42 | XR_ITS ---
PROCEDURE: XR KNEE LT 4V CLINICAL INDICATION: BL knee pain COMPARISON: CR XR KNEE LT 3V from 01/16/2020 CR XR KNEE RT 3V from 01/16/2020 CR XR KNEE RT 4V from 04/27/2020 CR XR KNEE LT 4V from 04/27/2020 FINDINGS: There are severe osteoarthritic changes of the medial compartment of the left knee with mild osteoarthritis of the lateral compartment and patellofemoral joint. The osteoarthritic changes medially has progressed compared to the previous exam with further loss of joint space and osteosclerosis There is mild chondrocalcinosis of the lateral meniscus. Other findings:None. IMPRESSION: Severe osteoarthritis of the left knee medially which is progressed from the previous exam Dictated by: Patrick Clark MD 05/24/2021 12:22 Patrick Clark MD in [place] 05/24/2021 12:22
== END ==
PROVIDERS: PCP Internal Medicine; Visit Provider Orthopaedic Surgery
DX: M25.561 Pain in right knee (principal); M25.562 Pain in left knee
CPT/HCPCS: 73564

== ENCOUNTER → 2021-07-23 10:16 | Outpatient (CLI) | payer MEDICARE, MEDICAID, SELFPAY ==
--- NOTE | 2021-07-23 10:22 | XR_ITS ---
PROCEDURE: XR HIP RT 2-3V W/PELVIS CLINICAL INDICATION: sp RT total hip from fx, sx 03/17 COMPARISON: CR XR HIP RT 2-3V W/PELVIS from 04/12/2021 CR XR HIP RT 2-3V W/PELVIS from 04/26/2021 FINDINGS: Status post total hip prosthesis placement on the right. There is good alignment. The lateral acetabular screw however does project through the acetabulum laterally beyond the cortex of the acetabulum and lower ilium within the soft tissues. This is similar compared to the previous exam. IMPRESSION: No change good alignment status post right total hip prosthesis as described above. Dictated by: Patrick Clark MD 07/23/2021 11:42 Patrick Clark MD in [place] 07/23/2021 11:42
== END ==
PROVIDERS: PCP Internal Medicine; Visit Provider Orthopaedic Surgery
DX: Z09 Encounter for follow-up examination after completed treatment for conditions other than malignant neoplasm (principal); Z96.641 Presence of right artificial hip joint
CPT/HCPCS: 73502

== ENCOUNTER → 2021-08-02 10:35 | Outpatient (CLI) | payer MEDICARE, MEDICAID, SELFPAY ==
[2021-08-02 11:24] LABS: Hemoglobin A1C 5.3 % (4.0-6.0)
[2021-08-02 11:35] LABS: Chloride 103 mmol/L (98-107); Sodium 138 mmol/L (136-145)
[2021-08-02 11:36] LABS: Potassium 4.8 mmoL/L (3.5-5.1)
[2021-08-02 11:38] LABS: Alanine Aminotransferase 16 U/L (12-78); Albumin Level 4.2 g/dl (3.5-5.0); Albumin/Globulin Ratio 1.7 (1.1-1.8); Alkaline Phosphatase 73 U/L (38-126); Anion Gap 12.8 mEq/L (5-15); Aspartate Amino Transferase 23 U/L (14-36); Bilirubin,Total 0.6 mg/dl (0.2-1.3); Blood Urea Nitrogen 7 mg/dl (7-17); Carbon Dioxide 27 mmol/L (22.0-30.0); Cholesterol 144 mg/dl (140-200); Estimated Glomerular Filt Rate 97 ml/min (>60); GFR (African American) 118 ML/MIN (>60); Globulin 2.5 g/dL (1.3-3.2); Total Protein,Serum 6.7 g/dl (6.3-8.2); Triglycerides 107 mg/dl (30-150); VLDL Cholesterol 21 mg/dL (0-40)
[2021-08-02 11:39] LABS: Basophils % 0.4 % (0.1-2.0); Calcium 10.3 mg/dl (8.4-10.2); Chol/HDL Ratio 2.2 (1-3.5); Eosinophils # 0.1 K/mm3 (0.0-0.4); Eosinophils % 1.1 % (0.1-12.0); Glucose 99 mg/dl (74-100); HDL Cholesterol 65 mg/dl (40-60); Hematocrit 39.7 % (37.0-47.0); Hemoglobin 13.1 g/dL (12.2-16.2); Lymphocytes # 1.9 K/mm3 (0.7-4.5); Lymphocytes % 26.7 % (10-50); Mean Corpuscular HGB Conc 33.1 g/dL (31.8-35.4); Mean Corpuscular Hemoglobin 33.7 pg (27.0-31.2); Mean Corpuscular Volume 101.8 fl (81-99); Mean Platelet Volume 8.4 fl (7.4-10.4); Monocytes # 0.4 K/mm3 (0.1-1.0); Monocytes % 5.2 % (1.7-9.3); Neutrophils # 4.7 K/mm3 (1.8-7.8); Neutrophils % 66.5 % (37.0-80.0); Platelet Count 236 K/mm3 (142-424); White Blood Count 7.1 K/mm3 (4.8-10.8)
[2021-08-02 11:50] LABS: Direct LDL Cholesterol 54.34 mg/dL (100-129)
[2021-08-02 11:56] LABS: 25-OH Vitamin D, Total 63.7 ng/mL (30-100)
[2021-08-02 11:58] LABS: T4 (Thyroxine) 9.3 ug/dl (5.53-11.0)
[2021-08-02 12:09] LABS: Thyroid Stimulating Hormone 1.04 uIU/mL (0.465-4.68)
== END ==
PROVIDERS: Visit Provider Internal Medicine
DX: E11.42 Type 2 diabetes mellitus with diabetic polyneuropathy (principal); I10 Essential (primary) hypertension; E78.5 Hyperlipidemia, unspecified; F33.9 Major depressive disorder, recurrent, unspecified; M81.0 Age-related osteoporosis without current pathological fracture
CPT/HCPCS: 36415; 80053; 80061; 82306; 83036; 84436; 84443; 85025

== ENCOUNTER → 2021-08-28 10:11 | Outpatient (CLI) | payer MEDICARE, MEDICAID, SELFPAY ==
--- NOTE | 2021-08-28 | CA_ITS ---
APPROVED REPORT Right Lower Extremity Venous Study for DVT. Ball Rolling Machine Operator: eKyana Rogers, RT(R) Indications Lower Extremity Edema: Right Patient states she got out of the shower 08/25/21 and had pain and edema to the right thigh. She denies any trauma to it. HTN, HLD. Medications Aspirin 81 mg ASA daily Vein Imaging CFV (R): compressive, spontaneous, phasic, augmentation FEM (R): compressive, spontaneous, phasic, augmentation POP (R): compressive, spontaneous, phasic, augmentation PTV (R): Compressible GSV (R): compressive, spontaneous, phasic, augmentation Peroneals (R):Compressible GAS (R): Compressible Findings No evidence of DVT or superficial thrombophlebitis in the veins scanned of the right lower extremity. Conclusion No evidence of DVT or superficial thrombophlebitis in the veins scanned of the right lower extremity. Electronically signed by : Patrick Clark MD 08/28/2021 18:30:10
[2021-08-28 14:36] LABS: Reticulocyte % (Auto) 2.9 % (0.9-3.2)
[2021-08-28 16:07] LABS: Folate 8.95 ng/mL; Vitamin B12 418 pg/mL (239-931)
== END ==
PROVIDERS: PCP Internal Medicine; Visit Provider Internal Medicine
DX: M79.651 Pain in right thigh (principal); M25.561 Pain in right knee; M25.461 Effusion, right knee; Z96.641 Presence of right artificial hip joint
CPT/HCPCS: 82607; 82746; 85044; 93971

== ENCOUNTER → 2021-09-10 12:56 | Outpatient (CLI) | payer MEDICARE, MEDICAID, SELFPAY | PROVIDERS: PCP Internal Medicine; Visit Provider Nurse Practitioner | DX: Z20.822 Contact with and (suspected) exposure to COVID-19 (principal) | CPT/HCPCS: C9803; U0003; U0005 ==

== ENCOUNTER → 2021-11-05 10:04 | Outpatient (CLI) | payer MEDICARE, MEDICAID, SELFPAY ==
--- NOTE | 2021-11-05 10:09 | XR_ITS ---
PROCEDURE: XR HIP RT 2-3V W/PELVIS CLINICAL INDICATION: sp RT AMERICO, sx 04/12/21 The COMPARISON: CR XR HIP RT 2-3V W/PELVIS from 07/23/2021 FINDINGS: Bipolar prosthesis remains in place with the acetabular cup screw extending beyond the lateral margin of the ileum as before. There are healing fractures involving the superior and inferior pubic ramus. The medial fracture fragment of the superior pubic ramus fracture is slightly displaced inferiorly. IMPRESSION: Right hip prosthesis in place. Healing fractures the right superior and inferior pubic ramus. Dictated by: Patrick Clark MD 11/05/2021 17:24 Patrick Clark MD in [place] 11/05/2021 17:24
== END ==
PROVIDERS: PCP Internal Medicine; Visit Provider Orthopaedic Surgery
DX: Z96.641 Presence of right artificial hip joint (principal); M25.551 Pain in right hip
CPT/HCPCS: 73502

== ENCOUNTER → 2021-12-17 10:02 | Outpatient (CLI) | payer MEDICARE, MEDICAID, SELFPAY ==
--- NOTE | 2021-12-17 10:06 | XR_ITS ---
FINAL REPORT CLINICAL HISTORY: sp rt kyler, sx 04/12/21; pubic rami fracture COMPARISON: November 05, 2021 FINDINGS: RIGHT HIP Two views of the right hip including an AP pelvis demonstrate no acute fracture or dislocation. There are postoperative changes from right hip arthroplasty. There is subacute appearing fractures of the right superior and inferior pubic rami with evidence of interval healing. There is sclerosis of the right sacrum which is likely representing a subacute or chronic fracture. There is no new bony abnormality. The joint spaces appear normal. The visualized bony structures are well aligned. No soft tissue abnormality is seen. IMPRESSION: Postoperative changes from right hip arthroplasty. Subacute appearing fractures of right superior and inferior pubic rami with interval healing. Sclerosis of right sacrum likely representing subacute or chronic fracture. Reviewed, Interpreted and Dictated by Alonso Rivers III, MD Transcribed by Deysi Cleary Authenticated by Alonso Rivers III, MD on 12/17/2021 01:13:10 PM [facility]
== END ==
PROVIDERS: PCP Internal Medicine; Visit Provider Orthopaedic Surgery
DX: S32.511A Fracture of superior rim of right pubis, initial encounter for closed fracture (principal); S32.591A Other specified fracture of right pubis, initial encounter for closed fracture; Z96.641 Presence of right artificial hip joint
CPT/HCPCS: 73502

== ENCOUNTER → 2022-01-31 12:25 | Outpatient (CLI) | payer MEDICARE, MEDICAID, SELFPAY ==
[2022-01-31 15:58] LABS: Hemoglobin A1C 5.1 % (4.0-6.0)
[2022-01-31 16:25] LABS: Alanine Aminotransferase 21 U/L (12-78); Albumin Level 4.2 g/dl (3.5-5.0); Albumin/Globulin Ratio 1.8 (1.1-1.8); Alkaline Phosphatase 60 U/L (38-126); Anion Gap 11.3 mEq/L (5-15); Aspartate Amino Transferase 22 U/L (14-36); Bilirubin,Total 0.6 mg/dl (0.2-1.3); Blood Urea Nitrogen 11 mg/dl (7-17); Calcium 10.3 mg/dl (8.4-10.2); Carbon Dioxide 27 mmol/L (22.0-30.0); Chloride 102 mmol/L (98-107); Chol/HDL Ratio 2.5 (1-3.5); Cholesterol 157 mg/dl (140-200); Estimated Glomerular Filt Rate 97 ml/min (>60); GFR (African American) 118 ML/MIN (>60); Globulin 2.3 g/dL (1.3-3.2); Glucose 73 mg/dl (74-100); HDL Cholesterol 64 mg/dl (40-60); Potassium 4.3 mmoL/L (3.5-5.1); Sodium 136 mmol/L (136-145); Total Protein,Serum 6.5 g/dl (6.3-8.2); Triglycerides 89 mg/dl (30-150); VLDL Cholesterol 18 mg/dL (0-40)
[2022-01-31 16:37] LABS: Direct LDL Cholesterol 60.67 mg/dL (100-129)
== END ==
PROVIDERS: Visit Provider Internal Medicine
DX: I10 Essential (primary) hypertension (principal); E11.42 Type 2 diabetes mellitus with diabetic polyneuropathy; E78.5 Hyperlipidemia, unspecified; M15.0 Primary generalized (osteo)arthritis
CPT/HCPCS: 80053; 80061; 82043; 83036

== ENCOUNTER 2022-02-26 12:50 | Outpatient (CLI) | payer MEDICARE, MEDICAID, SELFPAY ==
[2022-02-26 13:20] VITALS: BP 128/61; PULSE 73; RESP 18; TEMP 36.6; O2SAT 97
[2022-02-26 13:40] VITALS: BP 115/63; PULSE 68; RESP 18; O2SAT 97
== END 2022-02-26 13:40 | disposition home or self-care (01) ==
LOC: INF 12:52
PROVIDERS: PCP Internal Medicine; Visit Provider Internal Medicine
DX: M15.0 Primary generalized (osteo)arthritis (principal); M81.0 Age-related osteoporosis without current pathological fracture
CPT/HCPCS: 96374; J3489

== ENCOUNTER → 2022-03-25 09:26 | Outpatient (CLI) | payer MEDICARE, SELFPAY ==
--- NOTE | 2022-03-25 09:35 | XR_ITS ---
FINAL REPORT CLINICAL HISTORY: sp rt total hip fracture 04/12/2021 COMPARISON: 12/17/2021 FINDINGS: RIGHT HIP Three views were obtained. There is no acute fracture or dislocation. The patient is status post right hip arthroplasty. There are subacute to chronic right superior and inferior pubic rami fractures with interval callus formation. There is a probable subacute to chronic fracture of the right sacrum. IMPRESSION: Subacute to chronic fractures with interval callus formation as detailed above. Reviewed, Interpreted and Dictated by Alonso Rivers III, MD Transcribed by Loren Toribio Authenticated by Alonso Rivers III, MD on 03/25/2022 11:03:22 AM [facility]
== END ==
PROVIDERS: PCP Internal Medicine; Visit Provider Orthopaedic Surgery
DX: Z96.641 Presence of right artificial hip joint (principal); M25.551 Pain in right hip
CPT/HCPCS: 73502

== ENCOUNTER → 2022-08-05 10:03 | Outpatient (CLI) | payer MEDICARE, SELFPAY ==
[2022-08-05 14:20] LABS: Basophils % 0.6 % (0.1-2.0); Eosinophils # 0.2 K/mm3 (0.0-0.4); Eosinophils % 2.1 % (0.1-12.0); Hematocrit 38.1 % (37.0-47.0); Hemoglobin 12.2 g/dL (12.2-16.2); Lymphocytes # 1.9 K/mm3 (0.7-4.5); Lymphocytes % 27.1 % (10-50); Mean Corpuscular HGB Conc 32.2 g/dL (31.8-35.4); Mean Corpuscular Volume 105.8 fl (81-99); Mean Platelet Volume 9.5 fl (7.4-10.4); Monocytes # 0.3 K/mm3 (0.1-1.0); Monocytes % 4.9 % (1.7-9.3); Neutrophils # 4.6 K/mm3 (1.8-7.8); Neutrophils % 65.2 % (37.0-80.0); Platelet Count 253 K/mm3 (142-424); Red Cell Distribution Width 13.6 % (11.5-17.5)
[2022-08-05 16:36] LABS: Chloride 101 mmol/L (98-107)
[2022-08-05 16:37] LABS: Sodium 138 mmol/L (136-145)
[2022-08-05 16:39] LABS: Alanine Aminotransferase 17 U/L (12-78); Alkaline Phosphatase 63 U/L (38-126); Aspartate Amino Transferase 28 U/L (14-36); Bilirubin,Total 0.4 mg/dl (0.2-1.3); Blood Urea Nitrogen 18 mg/dl (7-17); Carbon Dioxide 25 mmol/L (22.0-30.0); Cholesterol 142 mg/dl (140-200); Estimated Glomerular Filt Rate 81 ml/min (>60); GFR (African American) 98 ML/MIN (>60); Triglycerides 92 mg/dl (30-150); VLDL Cholesterol 18 mg/dL (0-40)
[2022-08-05 16:40] LABS: Albumin Level 4.2 g/dl (3.5-5.0); Albumin/Globulin Ratio 1.8 (1.1-1.8); Calcium 10.2 mg/dl (8.4-10.2); Chol/HDL Ratio 2.5 (1-3.5); Globulin 2.4 g/dL (1.3-3.2); Glucose 77 mg/dl (74-100); HDL Cholesterol 57 mg/dl (40-60); Total Protein,Serum 6.6 g/dl (6.3-8.2)
[2022-08-05 16:51] LABS: Direct LDL Cholesterol 51.93 mg/dL (100-129)
[2022-08-05 18:17] LABS: Hemoglobin A1C 4.9 % (4.0-6.0)
== END ==
PROVIDERS: PCP Internal Medicine; Visit Provider Internal Medicine
DX: E11.42 Type 2 diabetes mellitus with diabetic polyneuropathy (principal); I10 Essential (primary) hypertension; E78.5 Hyperlipidemia, unspecified; J44.9 Chronic obstructive pulmonary disease, unspecified
CPT/HCPCS: 80053; 80061; 83036; 85025

== ENCOUNTER 2022-10-07 12:31 | Day surgery (SDC) | payer MEDICARE, SELFPAY ==
[2022-10-02 14:00] VITALS: BMI 26.6
[2022-10-07 12:46] VITALS: BP 160/84; PULSE 86; RESP 18; TEMP 36.5; O2SAT 95
--- NOTE | 2022-10-07 13:03 | P.PN_ITS ---
[facility] Medical History (Updated 10/07/22 @ 12:46 by Kirsten Carreon RN) Hypertension Surgical History History of hysterectomy History of left hip replacement History of right hip replacement Family History Other No significant family history Social History Smoking Status: Never smoker alcohol intake: never counseling provided: none substance use type: denies use current occupational status: retired Travel in the last 8 weeks: None caffeine: Yes [facility] Anesthesia Checklist Patient Identification Patient Identification: Arm Band Structural Data Admitted From: Home Planned Operative Procedure/s: egd Consent for Planned Operative Procedure(s) Verified: Yes Verified Documents: Surgical Consent and History and Physical NPO Status Verified Time NPO: 00:00 Additional verifications Anesthesia Reactions: No Hx Blood Transfusions: No Blood Transfusion Reaction: No Airway Assessment C-Spine Mobility Assessed: Yes TMJ Mobility Assessed: Yes Dentition: Edentulous Neurological Assessment Level of Consciousness: Awake and Alert Anesthesia Plan Anesthesia Risk discussed: Yes Anesthesia Plan: Verified ASA Class: II Anesthesia Type: MAC
[2022-10-07 13:07] VITALS: O2SAT 97
[2022-10-07 13:25] VITALS: BP 100/56; PULSE 66; RESP 15; TEMP 36.3; O2SAT 93
--- NOTE | 2022-10-07 13:27 | P.PCN_ITS ---
Procedure: Date: 10/07/22 Patient Date of :: 1945 Procedure Performed:: Esophagogastroduodenoscopy with biopsy Indications:: Gastroesophageal reflux Sliding hiatal hernia Note: The patient underwent esophagogastroduodenoscopy at time of colonoscopy in May 2019 (Dr. Tenzin Carrasco). Nonerosive reflux, esophageal dysmotility, linear reactive gastropathy, and a large (8 to 9 cm) sliding hiatal hernia were noted. Recommendations for a repeat colonoscopy in May 2024 were made. Performing Provider:: Les Larios MD Referring Provider:: . Sedation:: Monitored anesthesia care Procedure:: After informed consent was obtained the patient was taken to the endoscopy suite. Sedation ensued after the patient was transferred to the left lateral decubitus position. Pulse, blood pressure, and oxygen saturation were monitored throughout the procedure. The endoscope was advanced beyond the duodenal bulb. Retroflexion within the gastric lumen was accomplished. The gastroscope was carefully removed and the patient was transferred to recovery in stable condition. Please see findings and specimens below for detail. Findings:: Dilated tortuous esophagus Apparent distal esophageal ulceration that was essentially healed Large complex sliding hiatal hernia consistent with findings from May 2019 Multiple gastric polyps (likely fundic gland polyps) Specimens:: Antral biopsy Biopsy of mid gastric body polyp Biopsy proximal gastric body polyp Biopsy of small (essentially healed) distal esophageal ulceration Note: All above were obtained by way of cold biopsy forceps. Recommendations:: Follow-up pathology Consider evaluation by Dr. King Siddiqi at the [facility] for laparoscopic repair of large complex hiatal hernia. Complications:: No immediate Estimated blood obtained (mL): 1
[2022-10-07 13:35] VITALS: BP 127/70; PULSE 64; RESP 16; O2SAT 97
[2022-10-07 13:45] VITALS: BP 123/94; PULSE 62; RESP 16; TEMP 36.3; O2SAT 97
[2022-10-07 14:22] VITALS: BP 123/94; PULSE 62; RESP 16; TEMP 36.4; O2SAT 97
== END 2022-10-07 14:15 | disposition home or self-care (01) ==
PROVIDERS: PCP Internal Medicine; Visit Provider Surgery
PROC: 0DJ08ZZ Inspection of Upper Intestinal Tract, Via Natural or Artificial Opening Endoscopic (ICD-10-PCS; CPT 43235; principal; 2022-10-07 13:30)
DX: K21.00 Gastro-esophageal reflux disease with esophagitis, without bleeding (principal); K44.9 Diaphragmatic hernia without obstruction or gangrene; Z79.899 Other long term (current) drug therapy
CPT/HCPCS: 43239; 88305; 88342

== ENCOUNTER → 2023-02-04 12:59 | Outpatient (CLI) | payer MEDICARE, SELFPAY ==
[2023-02-04 15:39] LABS: Hemoglobin A1C 4.9 % (4.0-6.0)
[2023-02-04 16:22] LABS: Alanine Aminotransferase 20 U/L (12-78); Albumin Level 4.2 g/dl (3.5-5.0); Albumin/Globulin Ratio 1.9 (1.1-1.8); Alkaline Phosphatase 54 U/L (38-126); Anion Gap 12.8 mEq/L (5-15); Aspartate Amino Transferase 23 U/L (14-36); Bilirubin,Total 0.5 mg/dl (0.2-1.3); Blood Urea Nitrogen 16 mg/dl (7-17); Calcium 9.8 mg/dl (8.4-10.2); Carbon Dioxide 27 mmol/L (22.0-30.0); Chloride 98 mmol/L (98-107); Chol/HDL Ratio 2.4 (1-3.5); Cholesterol 138 mg/dl (140-200); Estimated Glomerular Filt Rate 70 ml/min (>60); GFR (African American) 84 ML/MIN (>60); Globulin 2.2 g/dL (1.3-3.2); Glucose 76 mg/dl (74-100); HDL Cholesterol 57 mg/dl (40-60); Potassium 4.8 mmoL/L (3.5-5.1); Sodium 133 mmol/L (136-145); Total Protein,Serum 6.4 g/dl (6.3-8.2); Triglycerides 93 mg/dl (30-150); VLDL Cholesterol 19 mg/dL (0-40)
[2023-02-04 16:33] LABS: Direct LDL Cholesterol 61.69 mg/dL (100-129)
[2023-02-04 19:05] LABS: Creatinine,Urine Random 29 mg/dL (Not Estab.); Microalbumin < 6.000 mg/L (0-16.7)
== END ==
PROVIDERS: PCP Internal Medicine; Visit Provider Internal Medicine
DX: E11.42 Type 2 diabetes mellitus with diabetic polyneuropathy (principal); I10 Essential (primary) hypertension; J44.9 Chronic obstructive pulmonary disease, unspecified; F33.9 Major depressive disorder, recurrent, unspecified; F41.9 Anxiety disorder, unspecified; M15.0 Primary generalized (osteo)arthritis
CPT/HCPCS: 80053; 80061; 82043; 82570; 83036

== ENCOUNTER → 2023-06-01 11:32 | Outpatient (CLI) | payer MEDICARE, SELFPAY ==
--- NOTE | 2023-06-01 11:53 | XR_ITS ---
FINAL REPORT CLINICAL HISTORY: Left wrist pain COMPARISON: None FINDINGS: 3 views of the left wrist were obtained. There is no prior exam for comparison. There is a transverse fracture of the distal left radial metaphysis, age-indeterminate. There is advanced degenerative disease of the wrist with widening of the scapholunate distance. Mild soft tissue edema is noted. IMPRESSION: Age-indeterminate left radial metaphysis. Advanced degenerative disease of the wrist. Reviewed, Interpreted and Dictated by Bianca Yoo MD Transcribed by Kirsten Wen Authenticated and [facility]
== END ==
PROVIDERS: PCP Internal Medicine; Visit Provider Internal Medicine
DX: M25.532 Pain in left wrist (principal); M25.432 Effusion, left wrist
CPT/HCPCS: 73110

== ENCOUNTER → 2023-08-05 16:58 | Outpatient (CLI) | payer MEDICARE, SELFPAY ==
[2023-08-05 17:46] LABS: Basophils % 0.5 % (0.1-2.0); Eosinophils # 0.2 K/mm3 (0.0-0.4); Hemoglobin 12.3 g/dL (12.2-16.2); Lymphocytes % 29.5 % (10-50); Mean Corpuscular HGB Conc 32.4 g/dL (31.8-35.4); Mean Corpuscular Hemoglobin 34.1 pg (27.0-31.2); Mean Platelet Volume 10.4 fl (7.4-10.4); Monocytes # 0.4 K/mm3 (0.1-1.0); Monocytes % 5.7 % (1.7-9.3); Neutrophils # 4.1 K/mm3 (1.8-7.8); Neutrophils % 61.4 % (37.0-80.0); Platelet Count 200 K/mm3 (142-424); Red Blood Count 3.62 M/mm3 (4.20-5.40); Red Cell Distribution Width 13.2 % (11.5-17.5); White Blood Count 6.8 K/mm3 (4.8-10.8)
[2023-08-05 20:47] LABS: Alanine Aminotransferase 22 U/L (12-78); Albumin Level 3.9 g/dl (3.5-5.0); Albumin/Globulin Ratio 1.6 (1.1-1.8); Alkaline Phosphatase 56 U/L (38-126); Anion Gap 14.4 mEq/L (5-15); Aspartate Amino Transferase 28 U/L (14-36); Bilirubin,Total 0.6 mg/dl (0.2-1.3); Blood Urea Nitrogen 17 mg/dl (7-17); Calcium 10.5 mg/dl (8.4-10.2); Carbon Dioxide 26 mmol/L (22.0-30.0); Chloride 101 mmol/L (98-107); Chol/HDL Ratio 2.5 (1-3.5); Cholesterol 141 mg/dl (140-200); Estimated Glomerular Filt Rate 61 ml/min (>60); GFR (African American) 73 ML/MIN (>60); Globulin 2.4 g/dL (1.3-3.2); Glucose 69 mg/dl (74-100); HDL Cholesterol 56 mg/dl (40-60); Potassium 4.4 mmoL/L (3.5-5.1); Sodium 137 mmol/L (136-145); Total Protein,Serum 6.3 g/dl (6.3-8.2); Triglycerides 76 mg/dl (30-150); VLDL Cholesterol 15 mg/dL (0-40)
[2023-08-05 20:58] LABS: Direct LDL Cholesterol 66.42 mg/dL (100-129)
[2023-08-07 18:29] LABS: Vitamin B12 537 pg/mL (239-931)
[2023-08-07 18:30] LABS: Folate 5.03 ng/mL
== END ==
PROVIDERS: PCP Internal Medicine; Visit Provider Internal Medicine
DX: E11.42 Type 2 diabetes mellitus with diabetic polyneuropathy (principal); I10 Essential (primary) hypertension; J44.9 Chronic obstructive pulmonary disease, unspecified; M15.0 Primary generalized (osteo)arthritis; E78.5 Hyperlipidemia, unspecified
CPT/HCPCS: 80053; 80061; 82607; 82746; 83036; 85025

== ENCOUNTER 2023-08-14 09:47 | Outpatient (CLI) | payer MEDICARE, SELFPAY ==
[2023-08-14 09:53] VITALS: BMI 26.6
[2023-08-14 10:12] LABS: Creatinine Clearance Estimated 48 mL/min (50-200); Estimated Glomerular Filt Rate 70 ml/min (>60); GFR (African American) 84 ML/MIN (>60)
[2023-08-14 10:13] LABS: Calcium 10.5 mg/dl (8.4-10.2)
[2023-08-14 10:25] VITALS: BP 144/75; PULSE 53; RESP 18; O2SAT 97
[2023-08-14 10:50] VITALS: BP 152/74; PULSE 54; RESP 18; O2SAT 97
== END 2023-08-14 10:51 | disposition home or self-care (01) ==
LOC: INF 09:48
PROVIDERS: PCP Internal Medicine; Visit Provider Internal Medicine
DX: M81.0 Age-related osteoporosis without current pathological fracture (principal)
CPT/HCPCS: 82040; 82310; 82565; 96374; J3489

== ENCOUNTER 2024-01-20 13:59 | Outpatient (CLI) | payer MEDICARE, SELFPAY ==
--- NOTE | 2024-01-20 14:09 | XR_ITS ---
FINAL REPORT CLINICAL HISTORY: rt knee pain COMPARISON: 05/24/2021 FINDINGS: Right knee Three views were obtained. There is no acute fracture or dislocation. There is moderate to severe degenerative changes. Medial compartment narrowing is identified. Findings are similar to prior. No soft tissue abnormality is identified. IMPRESSION: Significant degenerative changes, similar to prior. Reviewed, Interpreted and Dictated by lAonso Rivers III, MD Transcribed by Loren Toribio Authenticated and [facility]
--- NOTE | 2024-01-20 14:09 | XR_ITS ---
FINAL REPORT CLINICAL HISTORY: lt knee pain COMPARISON: 05/24/2021 FINDINGS: Left knee Three views were obtained. There is no acute fracture or dislocation. There is moderate to severe degenerative changes. Medial compartment narrowing is identified. Findings are similar to prior. There is a small joint effusion. IMPRESSION: Significant degenerative changes, similar to prior. Small joint effusion. Reviewed, Interpreted and Dictated by Alonso Rivers III, MD Transcribed by Loren Toribio Authenticated and . [facility]
== END 2024-01-20 23:59 ==
LOC: RAD 14:00
PROVIDERS: PCP Internal Medicine; Visit Provider Orthopaedic Surgery
DX: M25.561 Pain in right knee (principal); M25.562 Pain in left knee
CPT/HCPCS: 73562

== ENCOUNTER 2024-02-16 11:50 | Outpatient (CLI) | payer MEDICARE, SELFPAY ==
[2024-02-16 14:13] LABS: Creatinine,Urine Random 17 mg/dL (Not Estab.); Microalbumin < 6.000 mg/L (0-16.7)
[2024-02-16 14:29] LABS: Alanine Aminotransferase 18 U/L (12-78); Albumin/Globulin Ratio 1.7 (1.1-1.8); Alkaline Phosphatase 60 U/L (38-126); Anion Gap 9.8 mEq/L (5-15); Aspartate Amino Transferase 24 U/L (14-36); Bilirubin,Total 0.6 mg/dl (0.2-1.3); Blood Urea Nitrogen 14 mg/dl (7-17); Calcium 10.8 mg/dl (8.4-10.2); Carbon Dioxide 27 mmol/L (22.0-30.0); Chloride 102 mmol/L (98-107); Chol/HDL Ratio 2.2 (1-3.5); Cholesterol 169 mg/dl (140-200); Estimated Glomerular Filt Rate 69 ml/min (>60); GFR (African American) 84 ML/MIN (>60); Globulin 2.4 g/dL (1.3-3.2); Glucose 77 mg/dl (74-100); HDL Cholesterol 77 mg/dl (40-60); Potassium 4.8 mmoL/L (3.5-5.1); Sodium 134 mmol/L (136-145); Total Protein,Serum 6.4 g/dl (6.3-8.2); Triglycerides 85 mg/dl (30-150); VLDL Cholesterol 17 mg/dL (0-40)
[2024-02-16 14:40] LABS: Direct LDL Cholesterol 72.47 mg/dL (100-129)
[2024-02-16 14:50] LABS: Free T4 (Free Thyroxine) 1.96 ng/dl (0.78-2.19)
[2024-02-16 15:03] LABS: Thyroid Stimulating Hormone 1.71 uIU/mL (0.465-4.68)
== END 2024-02-16 23:59 ==
LOC: LAB.DROPOF 11:52
PROVIDERS: PCP Internal Medicine; Visit Provider Internal Medicine
DX: E11.42 Type 2 diabetes mellitus with diabetic polyneuropathy (principal); I10 Essential (primary) hypertension; E78.5 Hyperlipidemia, unspecified; M15.0 Primary generalized (osteo)arthritis; M81.0 Age-related osteoporosis without current pathological fracture; R68.89 Other general symptoms and signs
CPT/HCPCS: 80053; 80061; 82043; 82570; 83036; 84439; 84443

== ENCOUNTER 2024-05-17 15:19 | Outpatient (CLI) | payer MEDICARE, SELFPAY ==
[2024-05-17 15:06] LABS: Calcium 10.9 mg/dl (8.4-10.2)
[2024-05-17 15:14] LABS: Intact Parathyroid Hormone 29.6 pg/mL (7.5-53.5)
[2024-05-17 15:37] LABS: Hemoglobin A1C 5.1 % (4.0-6.0)
== END 2024-05-17 23:59 | disposition home or self-care (01) ==
LOC: LAB.DROPOF 15:20
PROVIDERS: PCP Internal Medicine; Visit Provider Internal Medicine
DX: E83.52 Hypercalcemia (principal); N39.0 Urinary tract infection, site not specified; E11.49 Type 2 diabetes mellitus with other diabetic neurological complication
CPT/HCPCS: 82310; 83036; 83970; 84100; 87086; 87088; 87186

== ENCOUNTER 2024-08-18 14:26 | Outpatient (CLI) | payer MEDICARE, SELFPAY ==
[2024-08-18 14:12] LABS: Basophils % 0.5 % (0.1-2.0); Eosinophils # 0.1 K/mm3 (0.0-0.4); Eosinophils % 0.9 % (0.1-12.0); Hematocrit 35.5 % (37.0-47.0); Hemoglobin 12.2 g/dL (12.2-16.2); Lymphocytes # 1.6 K/mm3 (0.7-4.5); Lymphocytes % 29.2 % (10-50); Mean Corpuscular HGB Conc 34.4 g/dL (31.8-35.4); Mean Corpuscular Hemoglobin 34.3 pg (27.0-31.2); Mean Corpuscular Volume 99.8 fl (81-99); Mean Platelet Volume 9.6 fl (7.4-10.4); Monocytes # 0.3 K/mm3 (0.1-1.0); Monocytes % 6.1 % (1.7-9.3); Neutrophils # 3.5 K/mm3 (1.8-7.8); Neutrophils % 63.1 % (37.0-80.0); Platelet Count 225 K/mm3 (142-424); Red Blood Count 3.55 M/mm3 (4.20-5.40); Red Cell Distribution Width 13.6 % (11.5-17.5); White Blood Count 5.5 K/mm3 (4.8-10.8)
[2024-08-18 15:35] LABS: Alanine Aminotransferase 21 U/L (12-78); Albumin Level 4.2 g/dl (3.5-5.0); Albumin/Globulin Ratio 1.9 (1.1-1.8); Alkaline Phosphatase 61 U/L (38-126); Anion Gap 7.6 mEq/L (5-15); Aspartate Amino Transferase 28 U/L (14-36); Bilirubin,Total 0.8 mg/dl (0.2-1.3); Blood Urea Nitrogen 12 mg/dl (7-17); Calcium 10.6 mg/dl (8.4-10.2); Carbon Dioxide 28 mmol/L (22.0-30.0); Chloride 102 mmol/L (98-107); Chol/HDL Ratio 3.4 (1-3.5); Cholesterol 227 mg/dl (140-200); Estimated Glomerular Filt Rate 81 ml/min (>60); GFR (African American) 98 ML/MIN (>60); Globulin 2.2 g/dL (1.3-3.2); Glucose 81 mg/dl (74-100); HDL Cholesterol 67 mg/dl (40-60); Potassium 4.6 mmoL/L (3.5-5.1); Sodium 133 mmol/L (136-145); Total Protein,Serum 6.4 g/dl (6.3-8.2); Triglycerides 93 mg/dl (30-150); VLDL Cholesterol 19 mg/dL (0-40)
[2024-08-18 15:46] LABS: Direct LDL Cholesterol 110.09 mg/dL (100-129)
[2024-08-18 15:47] LABS: Intact Parathyroid Hormone 80.1 pg/mL (7.5-53.5)
[2024-09-05 02:09] LABS: 1,25 Dihydroxy Vitamin D 63 pg/mL (.); 1,25-Dihydroxy, Vitamin D-2 <10 pg/mL (.); 1,25-Dihydroxy, Vitamin D-3 63 pg/mL (.)
== END 2024-08-18 23:59 | disposition home or self-care (01) ==
LOC: LAB.DROPOF 14:27
PROVIDERS: PCP Internal Medicine; Visit Provider Internal Medicine
DX: I10 Essential (primary) hypertension (principal); E78.5 Hyperlipidemia, unspecified; E83.52 Hypercalcemia; E11.42 Type 2 diabetes mellitus with diabetic polyneuropathy; Z68.24 Body mass index [BMI] 24.0-24.9, adult
CPT/HCPCS: 80053; 80061; 82652; 83036; 83970; 85025

== ENCOUNTER 2025-03-27 12:30 | Outpatient (CLI) | payer MEDICARE, SELFPAY ==
[2025-03-27 16:59] LABS: Basophils % 0.5 % (0.1-2.0); Eosinophils # 0.1 Kmm3 (0.0-0.4); Eosinophils % 1.3 % (0.1-12.0); Hematocrit 38.3 % (37.0-47.0); Hemoglobin 12.9 g/dL (12.2-16.2); Immature Granulocytes # 0.02 10^3uL; Immature Granulocytes % 0.3 %; Lymphocytes # 2.5 K/mm3 (0.7-4.5); Lymphocytes % 32.4 % (10-50); Mean Corpuscular HGB Conc 33.7 g/dL (31.8-35.4); Mean Corpuscular Hemoglobin 34.9 pg (27.0-31.2); Mean Corpuscular Volume 103.5 fl (81-99); Mean Platelet Volume 10.5 fl (7.4-10.4); Monocytes # 0.4 K/mm3 (0.1-1.0); Monocytes % 5.5 % (1.7-9.3); Neutrophils # 4.7 K/mm3 (1.8-7.8); Nucleated Red Blood Cells # 0 10^3/uL; Nucleated Red Blood Cells % 0 %; Platelet Count 276 K/mm3 (142-424); Red Cell Distribution Width-SD 49.1 fL; White Blood Count 7.9 K/mm3 (4.8-10.8)
[2025-03-27 18:18] LABS: Alanine Aminotransferase 15 U/L (12-78); Alkaline Phosphatase 57 U/L (38-126); Aspartate Amino Transferase 20 U/L (14-36); Bilirubin,Total 0.6 mg/dl (0.2-1.3); Calcium 10.3 mg/dl (8.4-10.2); Chloride 99 mmol/L (98-107); Chol/HDL Ratio 2.9 (1-3.5); Cholesterol 212 mg/dl (140-200); Glucose 73 mg/dl (74-100); HDL Cholesterol 72 mg/dl (40-60); Potassium 4.5 mmoL/L (3.5-5.1); Sodium 130 mmol/L (136-145); Triglycerides 122 mg/dl (30-150); VLDL Cholesterol 24 mg/dL (0-40)
[2025-03-27 18:21] LABS: Albumin Level 4.5 g/dl (3.5-5.0); Albumin/Globulin Ratio 2.1 (1.1-1.8); Anion Gap 7.5 mEq/L (5-15); Blood Urea Nitrogen 16 mg/dl (7-17); Carbon Dioxide 28 mmol/L (22.0-30.0); Estimated Glomerular Filt Rate 81 ml/min (>60); GFR (African American) 98 ML/MIN (>60); Globulin 2.1 g/dL (1.3-3.2); Total Protein,Serum 6.6 g/dl (6.3-8.2)
[2025-03-27 18:29] LABS: Intact Parathyroid Hormone 77.2 pg/mL (7.5-53.5)
[2025-03-27 18:30] LABS: Direct LDL Cholesterol 103.43 mg/dL (100-129)
[2025-03-27 18:45] LABS: Hemoglobin A1C 4.8 % (4.0-6.0)
--- OUTSIDE RECORDS SUMMARY | 2025-03-28 14:27 | XMS_ITS | Data Portability ---
Author Organization [facility] ADMIN Address [address] [place] [id number] Assessment No assessment recorded. Plan of Treatment Reminders Order Date Submit Date Provider Last Modified By Organization Details Last Modified Time Details Appointments None record ed. Lab None record ed. Referral None record ed. Procedures None record ed. Surgeries None record ed. Imaging None record ed. Medication Orders None record ed. Patient TargetsNo targets recorded. Patient Instructions Encounter Date Encounter Id Patient Instructions Last Modified By Organization Details Last Modified Time 08/07/2022 [id number] 1-Discussed findings with Ms. Vásquez. 2-Cleaned hearing aid. 3-F/u annually to monitor. [email or web address] Not available 08/07/2022 11:22:50 Reason for Referral None Reported. Problems Name Problem SNOMED Code Status Onset Date Resolution Date Notes Provider Name and Address Organization Details Recorded Time Asymmetrical sensorineural hearing loss 290541307 Active 2021 LEENA ECHAVARRIA, AUD [address] [facility], [place], [address] , [facility] & [place] 11:22:31 Problem Notes None recorded. Medical Equipment None Reported. Medications Name Sig Start Date Stop Date Status Note LastModified by Organization Details LastModified Time prednisone 10 mg tablet active Not Available Not Available No t Available azithromycin 250 mg tablet active Not Available Not Availabl e Not Available hydrocodone 5 mg-acetaminoph en 325 mg tablet active Not Available Not Available Not Available alendronate 70 mg tablet active Not Available Not Available No t Available clonazepam 0.5 mg tablet active Not Available Not Available No t Available cephalexin 500 mg capsule active Not Available Not Available N ot Available omeprazole 20 mg capsule,delaye d release active Not Available Not Available No t Available diclofenac sodium 75 mg tablet,delayed release active Not Available Not Available Not Available Vitals None Recorded Social History None recorded. Functional Status None recorded. Mental Status None recorded. Family History Nothing Reported. Medical History No medical history recorded. Gynecological HistoryNo gynecological history recorded. Obstetrics History GPAL:G 0 P 0 0 0 0 Past Encounters Encounter ID Performer Location Encounter Start Date Encounter Closed Date Diagnosis/Indication Diagnosis SNOMED-CT Code Diagnosis ICD10 Code Diagnosis Note [id number] JENNY VENEGAS [facility] G -[address] [phone] 08/07/2022 10:55:52 08/07/2022 11:23:54 Asymmetrical sensorineural hearing loss 596476981 H90.5 Health Concerns Section Related Observation LastModified by Organization Detai ls LastModified Time None Recorded Concern Status LastModified by Organization Details LastModified Time None Recorded Advance Directives Directive None Recorded Payers Insurance Date Sequence Insurance Name Policy Number Policy Stone Covered Member ID Stone Member ID Guarantor Name 08/07/2022 1 [employer] - OPEN ACCESS - NATIONAL (POS) Nan Vásquez [id number] Nan Koche 08/07/2022 1 [employer] (MEDICARE REPLACEMENT/A DVANTAGE - PPO) Nan Vásquez [id number] Nan Vásquez Notes Date Note Type Note Provider Name and Address Organization Details Recorded Time 08/07/2022 text/html Ms. Vásquez was see n today for an audiologic evaluation due to long-standing, asymmetrical hearing loss (R worse than L) per Dr. Cecil MD. Ms. Vásquez reports that she has been deaf in the RE for nearly 20 years, and she is unsure of the cause to her hearing loss. She wears a hearing aid in the LE and states that she relies on the hearing aid to communicate. She denies tinnitus, dizziness, drainage, aural fullness/pressure, and excessive noise exposure. Otoscopic inspection was unremarkable bilaterally. JENNY VENEGAS [address] [facility], [place], [address], [facility] [[email or web address] - [facility] & [place] 08/07/2022 11:23:46 OBGyn Episode No OBEpisode recorded.
== END 2025-03-27 23:59 | disposition home or self-care (01) ==
LOC: LAB.DROPOF 03-28 14:26
PROVIDERS: PCP Internal Medicine; Visit Provider Internal Medicine
DX: E11.42 Type 2 diabetes mellitus with diabetic polyneuropathy (principal); I10 Essential (primary) hypertension; E78.5 Hyperlipidemia, unspecified; E83.52 Hypercalcemia
CPT/HCPCS: 80053; 80061; 83036; 83970; 85025

== ENCOUNTER 2025-06-27 10:45 | Outpatient (CLI) | payer MEDICARE, SELFPAY ==
--- OUTSIDE RECORDS SUMMARY | 2025-06-28 12:09 | XMS_ITS | Encounter Summary ---
Author Organization [facility] Address [address] [place] [address] Care Team Providers Care Continuous Pillowcase Cutter Name Role Phone Santana Jacob MD Primary Care Provider [phone] Encounter Details Date Type Department Care Team (Late st Contact Info) Description 10/11/2014 External CPT II DELICATESSEN [facility] - [facility] Social History Tobacco Use Types Packs/Day Years Used Date Smoking Tobacco: Never Assessed Comments Unknown Sex and Gender Information Value Date Recorded Sex Assigned at Not on file Legal Sex Female 10:39 AM EDT Gender Identity Not on file Sexual Orientation Not on file documented as of this encounter Plan of Treatment Not on file documented as of this encounter Visit Diagnoses Not on filedocumented in this encounter Care Teams Continuous Pillowcase Cutter Relationship Specialty Start Date End Date Santana Jacob MD [address] [facility] [address] [place] [id number] PCP - General Internal Medicine 01/22/21 documented as of this encounter
--- OUTSIDE RECORDS SUMMARY | 2025-06-28 12:09 | XMS_ITS | Clinical Summary ---
Author Organization [facility] Address [address] [place] [address] Care Team Providers Care College Physics Instructor Name Role Phone Santana Jacob MD Primary Care Provider [phone] Allergies Active Allergy Reactions Criticality Noted Date Comments Erythromycin Itching,Swelling High 02/05/2013 Medications spironolactone (Aldactone) 25 MG tablet Take 25 mg by mouth 1 (one) time each day. Active pravastatin (Pravachol) 40 MG tablet Take 40 mg by mouth 1 (one) time each day. Active potassium chloride CR (Klor-Con M20) 20 MEQ ER tablet Take 20 mEq by mouth 1 (one) time each day. Active pantoprazole (Protonix) 40 MG EC tablet 09/16/2022 Active multivitamin (Theragran-M) tablet Take 2 tablets by mouth 1 (one) time each day. Active HYDROcodone-cece taminophen ([place]) 5-325 MG tablet 03/14/2022 Active escitalopram (Lexapro) 20 MG tablet Take by mouth 1 (one) time each day. Active diclofenac (Voltaren) 75 MG EC tablet 09/07/2022 Active clonazePAM (KlonoPIN) 0.5 MG tablet 09/05/2022 Active aspirin 81 MG chewable tablet Chew 81 mg 1 (one) time each day. Active Active Problems Problem Noted Date Diagnosed Date Hiatal hernia 10/23/2022 Reflux esophagitis 10/23/2022 Abdominal bloating 10/23/2022 Dysphagia 10/23/2022 Family History Medical History Relation Name Comments Cancer Brother Cancer Sister Diabetes Sister Relation Name Status Comments Brother Sister Social History Tobacco Use Types Packs/Day Years Used Date Smoking Tobacco: Never Smokeless Tobacco: Never Tobacco Cessation:Counseling Given: Not Answered Alcohol Use Standard Drinks/Week Comments Not Currently 0 (1 standard drink = 0.6 oz pur e alcohol) PHQ-2 Answer Date Recorded Patient Health Questionnaire-2 Score 2 10/23/2022 PHQ-2A Answer Date Recorded Patient Health Questionnaire-2 Score 2 10/23/2022 Comments Unknown Sex and Gender Information Value Date Recorded Sex Assigned at Not on file Legal Sex Female 7:44 PM EDT Gender Identity Not on file Sexual Orientation Not on file Last Filed Vital Signs Vital Sign Reading Time Taken Comments Blood Pressure 131/73 10/23/2022 10:45 AM EST Pulse 66 10/23/2022 10:45 AM EST Temperature 36.5 C (97.7 F) 10/23/2022 10:45 AM EST Respiratory Rate 16 10/23/2022 10:4 5 AM EST Oxygen Saturation - - Inhaled Oxygen Concentration - - Weight 64.8 kg (142 lb 13.7 oz) 022 10:45 AM EST Height 154.9 cm (5' 1 ) 10/23/2022 10:4 5 AM EST Body Mass Index 26.99 10/23/2022 10:45 AM EST Plan of Treatment Health Maintenance Due Date Last Done Comments [facility]-Bone Density Scan 1945 [facility]-Hepatitis C Screening 1945 [facility]-Medicare Annual Wellness (AWV) 1945 [facility]-/Child/Adol SDOH Screenings 1945 [facility]- SDOH Screenings 1963 [facility]-Adult SDOH Screenings 1963 [facility]-DTaP,Tdap,and Td Vaccine s (1 - Tdap) 1964 [facility]-Zoster Vaccines (1 of 2) 1995 [facility]-Pneumococcal Vaccine: 50 + Years (2 of 2 - PCV) 12/29/2001 12/29/2000 [facility]-RSV Vaccine: 60+ Years o r (1 - 1-dose 75+ series) 2020 [facility]-Depression Screening 10/23/2023 10/23/2022 [id number] Vaccine ( season) 2024 09/30/2021, 02/09/2021, 01/12/2021 [facility]-Influenza Vaccine (#1) 2025 [facility]-Obesity Intervention Completed 10/23/2022 HPV Vaccines Aged Out No longer eligi ble based on patient's age to complete this topic [facility]-HIB Vaccines Aged Out No longer e ligible based on patient's age to complete this topic [facility]-Hepatitis A Vaccines Aged Out No longer eligible based on patient's age to complete this topic [facility]-IPV Vaccines Aged Out No longer e ligible based on patient's age to complete this topic [facility]-Rotavirus Vaccines Aged Out No lo nger eligible based on patient's age to complete this topic Insurance [employer] MEDICARE Care Teams College Physics Instructor Relationship Specialty Start Date End Date Santana Jacob MD [address] [place] [address] PCP - General 10/23/22
--- OUTSIDE RECORDS SUMMARY | 2025-06-28 12:09 | XMS_ITS | Clinical Summary ---
Author Organization [facility] Address [address] [place] [address] Care Team Providers Care Skin Drier Name Role Phone Santana Jacob MD Primary Care Provider [phone] Allergies No known active allergies Medications aspirin 81 MG tablet Take 1 tablet by mouth Daily. 30 tablet 04/01/2017 Active clonazePAM (KLONOPIN) 1 MG tablet Take 1 tablet by mouth 3 (Three) Times a Day As Needed for Seizures. 90 tablet 04/01/2017 Active diclofenac (VOLTAREN) 75 MG EC tablet Take 1 tablet by mouth 2 (Two) Times a Day. 60 tablet 07/24/2017 Active escitalopram (LEXAPRO) 10 MG tablet Take 1 tablet by mouth Daily. 30 tablet 07/24/2017 Active esomeprazole (NEXIUM) 40 MG capsule Take 1 capsule by mouth Every Morning Before Breakfast. 90 capsule 1 09/16/2017 Active losartan (COZAAR) 100 MG tablet Take 1 tablet by mouth Daily. 90 tablet 1 11/18/2017 Active amLODIPine (NORVASC) 10 MG tablet TAKE 1 TABLET BY MOUTH DAILY 63 tablet 03/16/2018 Active spironolactone (ALDACTONE) 25 MG tablet TAKE 1 TABLET BY MOUTH EVERY MORNING 63 tablet 03/16/2018 Active potassium chloride (K-DUR,KLOR-CON ) 20 MEQ CR tablet Take 1 tablet by mouth Daily. Active multivitamin with minerals (MULTIVITAMIN ADULTS 50+ PO) Take 2 tablets by mouth Daily. Active Cholecalciferol (VITAMIN D3 PO) Take 2 tablets by mouth Daily. Active CALCIUM PO Take 1 tablet by mouth Daily. Active Ascorbic Acid (VITAMIN C PO) Take 1 tablet by mouth Daily. Active Active Problems Problem Noted Date Diagnosed Date Primary insomnia 10/23/2017 Hypercalcemia 07/24/2017 Hypercholesteremia 03/27/2017 Essential hypertension 03/27/2017 Moderate episode of recurrent major depressive d isorder 03/27/2017 Arthritis 03/27/2017 GERD (gastroesophageal reflux disease) 7 Hypokalemia 03/27/2017 Immunizations Immunization Administration Dates Next Due Pneumococcal Conjugate 13-Valent (PCV13) 017 Family History Medical History Relation Name Comments Lung cancer Brother 1 Colon cancer Brother 2 Colon cancer Brother 3 Heart attack Brother 4 massive Lung cancer Father Bone cancer Mother Rheum arthritis Sister 1 Diabetes Sister 2 Lung cancer Sister 3 Lung cancer Sister 4 Relation Name Status Comments Brother 1 Brother 2 Brother 3 Brother 4 Father Mother Sister 1 Alive fpc Sister 2 Sister 3 Sister 4 Social History Tobacco Use Types Packs/Day Years Used Date Smoking Tobacco: Former Cigarettes Q uit: 1992 Passive Smoke Exposure: Past Smokeless Tobacco: Never Tobacco Cessation:Counseling Given: Not Answered Alcohol Use Standard Drinks/Week Comments No 0 (1 standard drink = 0.6 oz pur e alcohol) Abuse Screen Answer Date Recorded Unsafe at Home or Work/School Not on file Feels Threatened by Someone? Not on file 07/2023 Does Anyone Keep You from Co ntacting Others or Doint Things Outside the Home? Not on file 08/24/2023 Physical Sign of Abuse Present Not on file 1 Housing Stability Answer Date Recorded Current Living Arrangements Not on file 07/2023 Potentially Unsafe Housing Conditions Not on elif e 08/24/2023 Family and Community Support Answer Ronny e Recorded Help with Day-to-Day Activities Not on file 08/24/2023 Lonely or Isolated Not on file 08/24/2023 Employment Answer Date Recorded Do you want help finding or keeping work or a abebe b? Not on file 08/24/2023 Disabilities Answer Date Recorded Concentrating, Remembering, or Making Decisions Difficulty Not on file 08/24/2023 Doing Errands Independently Difficulty Not on fi le 08/24/2023 Education Answer Date Recorded Help with school or training? Not on file Preferred Language Not on file 08/24/2023 Comments Unknown Sex and Gender Information Value Date Recorded Sex Assigned at Not on file Legal Sex Female 10:39 AM EDT Gender Identity Not on file Sexual Orientation Not on file Occupation Industry Job Start Date Job End Date Not on file Not on file Not on file Not on file Last Filed Vital Signs Vital Sign Reading Time Taken Comments Blood Pressure 130/76 03/24/2024 1:06 PM EDT Pulse 66 03/24/2024 1:06 PM EDT Temperature 36.2 C (97.2 F) 10/23/2017 10:57 AM EST Respiratory Rate 16 10/23/2017 10:57 AM EST Oxygen Saturation 95% 03/24/2024 1:06 PM EDT Inhaled Oxygen Concentration - - Weight 60.8 kg (134 lb) 03/24/2024 1:06 PM EDT Height 160 cm (5' 3 ) 03/24/2024 1:06 PM EDT Body Mass Index 23.74 03/24/2024 1:06 PM EDT Plan of Treatment Health Maintenance Due Date Last Done Comments DXA SCAN 1945 COLOGUARD 1990 COLON CANCER SCREENING 5 YEA R SIGMOIDOSCOPY 1990 COLONOSCOPY 1990 COL[address]ECTAL CANCER SCREENING 1990 CT COLONOGRAPHY 1990 FECAL OCCULT BLOOD TEST 1990 FIT Testing (1 year) 1990 ZOSTER VACCINE (2 of 2) 10/13/2016 08/18/2016 ANNUAL WELLNESS VISIT 03/27/2017 LIPID PANEL 07/24/2018 07/24/2017, 03/16, 03/27/2017, Additional history exists RSV Vaccine - Adults (1 - 1- dose 75+ series) 2020 Pneumococcal Vaccine 50+ (3 of 3 - PCV20 or PCV21) 03/27/2022 03/27/2017, 12/29/2000 COVID-19 Vaccine (4 - 2023-2 5 season) 2024 09/30/2021, 02/09/2021, 01/12/2021 INFLUENZA VACCINE 08/16/2025 08/17/2018, , 09/29/2016, Additional history exists TDAP/TD VACCINES (2 - Td or Tdap) 03/27/2027 017 MAMMOGRAM Discontinued 10/15/2016, 09/18, 08/26/2016, Additional history exists HEPATITIS C SCREENING Completed 03/27/2017 , 03/27/2017, 09/19/2015 Procedures Procedure Name Priority Date/Time Associated Diagnosis Comments LIPID PANEL Routine 07/24/2017 11:10 AM EDT Hypercholesteremia HEPATITIS C ANTIBODY Routine 03/27/2017 9:34 AM EDT Need for hepatitis C screening test from Last 3 Months or Most Recently Relevant to Health Maintenance Results * Lipid Panel (07/24/2017 11:10 AM EDT) Pathologist [facility] [place] Total Cholesterol 146 0 - 200 mg/dL [facility] Comment: Cholesterol Reference Ranges: Desirable < 200 mg/dL Borderline 200-239 mg/dL High Risk > 239 mg/dL Triglyceride Reference Ranges: Normal < 150 mg/dL Borderline 150-199 mg/dL High 200-499 mg/dL Very High > 499 mg/dL HDL Reference Ranges: Low < 40 mg/dL High > 59 mg/dL LDL Reference Ranges: Optimal < 100 mg/dL Near Optimal 100-129 mg/dL Borderline 130-159 mg/dL High 160-189 mg/dL Very High > 189 mg/dL Triglycerides 97 0 - 150 mg/dL [facility] HDL Cholesterol 54 40 - 60 mg/dL [facility] VLDL Cholesterol 19.4 mg/dL [facility] LDL Cholesterol 73 0 - 100 mg/dL [facility] Blood 07/24/2017 11:1 0 AM EDT 07/24/2017 Narrative [facility] - 07/24/2017 8:09 PM EDT Performed at: [address] [place] [address], [place], [place] [id number] Automotive Technician: Los Bob MD, Phone: [phone] us Vazquez Aldrich MD LAB BLOOD ORDERABLES Final Resu lt [facility]) [address] [place] [address], [facility] [address] [place] [address], [place] [phone] * Hepatitis C Antibody (03/27/2017 9:34 AM EDT) Hep C Virus Ab <0.1 0.0 - 0.9 s/co ratio [facility] Comment: Negative: < 0.8 Indeterminate: 0.8 - 0.9 Positive: > 0.9 The CDC recommends that a positive HCV antibody result be followed up with a HCV Nucleic Acid Amplification test ([id number]). Blood 03/27/2017 9:34 AM EDT 03/27/2017 Narrative [facility] (AMBULATORY) - 03/28/2017 5:15 AM EDT Performed at: [address] [id number] Automotive Technician: Willy Douglass PhD, Phone: [phone] Patient Fasting: N us Vazquez Aldrich MD LAB BLOOD ORDERABLES [facility] [address] [place] [address], [facility] [address] [place] [address], from Last 3 Months or Most Recently Relevant to Health Maintenance [place] [address] MEDICARE ADVANTAGE PPO Care Teams Skin Drier Relationship Specialty Start Date End Date Santana Jacob MD [address] [facility] [address] [place] [address] PCP - General Internal Medicine 01/22/21
--- OUTSIDE RECORDS SUMMARY | 2025-06-28 12:09 | XMS_ITS | Clinical Summary ---
Author Organization [facility] Address [address] [place] [address] Phone Care Team Providers Care Food Prep Worker Name Role Phone Santana Jacob MD Primary Care Provider [phone] Allergies Active Allergy Reactions Criticality Noted Date Comments Erythromycin Itching,Swelling 02/05/2013 Medications potassium chloride SA (K-DUR;KLOR-CON) 20 mEq tablet Take 40 mEq by mouth 2 times daily. Active esomeprazole (NEXIUM) 40 mg capsule Take by mouth daily. Active clonazePAM (KLONOPIN) 1 mg tablet Take by mouth 3 times daily. Active Aspirin 81 mg Take 81 mg by mouth daily. Active gabapentin (NEURONTIN) 300 mg capsule Take by mouth 3 times daily. Reported on 01/08/2017 Active escitalopram (LEXAPRO) 20 mg tablet Take by mouth daily. Active miconazole (MONISTAT 1 COMBINATION PACK) kit Place 1 Each vaginally once. Reported on 01/08/2017 Active ezetimibe-simvas tatin (VYTORIN) 10-20 mg per tablet Take 1 Tab by mouth nightly. Active hydrochlorothiaz marie (HYDRODIURIL) 25 mg tablet Take by mouth 2 times daily. Active albuterol (PROVENTIL HFA;VENTOLIN HFA) 90 mcg/actuation inhaler Inhale 1-2 Puffs into the lungs every 6 hours as needed for Wheezing. 1 Inhaler 0 3 Active Additional Information Patient not taking.Reported on 03/17/2018 naproxen (NAPROSYN) 500 mg Oral Tablet Take 1 Tab by mouth 2 times daily. 30 Tab 0 5 Active Additional Information Patient not taking.Reported on 06/14/2023 benzonatate (TESSALON PERLES) 100 mg Oral Capsule Take 1 Cap by mouth 3 times daily as needed for Cough. 14 Cap 7 Active Additional Information Patient not taking.Reported on 03/17/2018 spironolactone (ALDACTONE) 25 mg Oral Tablet Take 25 mg by mouth daily. Active diclofenac (VOLTAREN) 75 mg Oral Tablet, Delayed Release (E.C.) Take 75 mg by mouth 2 times daily. Active rosuvastatin (CRESTOR) 10 mg Oral Tablet Take 10 mg by mouth daily. Active omeprazole (PRILOSEC) 20 mg Oral Capsule, Delayed Release(E.C.) Active losartan (COZAAR) 100 mg Oral Tablet Take 100 mg by mouth daily. 8 Active TURMERIC ORAL Take by mouth. A ctive Medical History Medical History Date Comments Anxiety Depression GERD (gastroesophageal reflux disease) Arthritis Hypertension Social History Tobacco Use Types Packs/Day Years Used Date Smoking Tobacco: Former Cigarettes Smokeless Tobacco: Never Alcohol Use Standard Drinks/Week Comments No 0 (1 standard drink = 0.6 oz pur e alcohol) Comments No Sex and Gender Information Value Date Recorded Sex Assigned at Not on file Legal Sex Female 10:58 PM EDT Gender Identity Not on file Sexual Orientation Not on file Obstetrics History Last Filed Vital Signs Vital Sign Reading Time Taken Comments Blood Pressure 126/80 06/14/2023 10:22 AM EDT Pulse 66 06/14/2023 10:13 AM EDT Temperature 36.2 C (97.1 F) 06/14/2023 10:13 AM EDT Respiratory Rate 18 06/14/2023 10:13 AM EDT Oxygen Saturation 98% 06/14/2023 10:13 AM EDT Inhaled Oxygen Concentration - - Weight 63.5 kg (140 lb) 06/14/2023 10:13 AM EDT Height 154.9 cm (5' 1 ) 06/14/2023 10:13 AM EDT Body Mass Index 26.45 06/14/2023 10:13 AM EDT Plan of Treatment Health Maintenance Due Date Last Done Comments Wellness Exam Medicare 1948 Hepatitis C Screening 1963 DTaP/TDaP/Td (1 - Tdap) 1964 Zoster (1 of 2) 1995 Bone Density Screening 2010 RSV or 60+ (1 - 1-dose 75+ series) 2020 Pneumococcal Vaccine 50+ (3 of 3 - PCV20 or PCV21) 03/27/2022 03/27/2017, 12/29/2000 COVID-19 Vaccine (4 - 2023-2 5 season) 2024 09/30/2021, 02/09/2021, 01/12/2021 Influenza Vaccine (#1) 2025 Hepatitis B Vaccine Aged Out No longe r eligible based on patient's age to complete this topic Meningococcal B Vaccine Aged Out No l onger eligible based on patient's age to complete this topic Insurance [employer] MEDICARE PPO MR [employer] MED[employer]ARE PPO MR Care Teams Food Prep Worker Relationship Specialty Start Date End Date Santana Jacob MD [address] [place] [id number] PCP - General Internal Medicine 02/05/13
== END 2025-06-27 23:59 | disposition home or self-care (01) ==
LOC: LAB.DROPOF 06-28 12:07
PROVIDERS: PCP Internal Medicine; Visit Provider Internal Medicine
DX: E11.42 Type 2 diabetes mellitus with diabetic polyneuropathy (principal)
CPT/HCPCS: 82043; 82570

== ENCOUNTER 2025-08-02 12:25 | Outpatient (CLI) | payer MEDICARE, SELFPAY ==
[2025-08-02 14:21] LABS: Hematocrit 38.0 % (37.0-47.0); Hemoglobin 12.7 g/dL (12.2-16.2); Immature Granulocytes % 0.3 %; Mean Corpuscular HGB Conc 33.4 g/dL (31.8-35.4); Mean Corpuscular Hemoglobin 34.4 pg (27.0-31.2); Mean Corpuscular Volume 103.0 fl (81-99); Nucleated Red Blood Cells % 0 %; Platelet Count 295 K/mm3 (142-424); Red Blood Count 3.69 M/mm3 (4.20-5.40); Red Cell Distribution Width-SD 56.0 fL; White Blood Count 7.3 K/mm3 (4.8-10.8)
[2025-08-02 14:49] LABS: Chloride 99 mmol/L (98-107); Sodium 134 mmol/L (136-145)
[2025-08-02 14:50] LABS: Potassium 4.9 mmoL/L (3.5-5.1)
[2025-08-02 14:53] LABS: Anion Gap 12.9 mEq/L (5-15); Blood Urea Nitrogen 11 mg/dl (7-17); Calcium 11.3 mg/dl (8.4-10.2); Carbon Dioxide 27 mmol/L (22.0-30.0); Creatinine,Serum 0.70 mg/dl (0.52-1.04); Estimated Glomerular Filt Rate 81 ml/min (>60); GFR (African American) 98 ML/MIN (>60); Glucose 86 mg/dl (74-100)
--- OUTSIDE RECORDS SUMMARY | 2025-08-03 10:28 | XMS_ITS | Clinical Summary ---
Author Organization [facility] Address [address] [place] [address] Care Team Providers Care Purchasing Administrator Name Role Phone Santana Jacob MD Primary Care Provider [phone] Allergies No known active allergies Medications aspirin [...] Brother 4 Father Mother Sister 1 Alive prison Sister 2 Sister 3 Sister 4 Social [...] - PCV20 or PCV21) 03/27/2022 03/27/2017, 12/29/2000 INFLUENZA VACCINE 06/16/2025 08/17/2018, , 09/29/2016, Additional history exists COVID-19 Vaccine (4 - 2024-2 6 season) 2025 09/30/2021, 02/09/2021, 01/12/2021 TDAP/TD VACCINES (2 - Td or Tdap) [...] Lipid Panel (07/24/2017 11:10 AM EDT) Pathologist [facility] Total Cholesterol 146 0 - 200 mg/dL [...] - 07/24/2017 8:09 PM EDT Performed at: [address] [place] [address], [place], [place] [id number] Food Checker: Los Bob MD, Phone: [phone] us Vazquez Aldrich MD LAB BLOOD ORDERABLES Final Resu lt [facility] ([facility]BULATORY) [address] [place] [address], [facility] [address] [place] [address], [place] [phone] * Hepatitis C Antibody (03/27/2017 9:34 AM EDT) Hep C Virus Ab <0.1 0.0 - 0.9 s/co ratio [facility] Comment: Negative: < 0.8 Indeterminate: 0.8 - 0.9 Positive: > 0.9 The CDC recommends that a positive HCV antibody result be followed up with a HCV Nucleic Acid Amplification test (309132). Blood 03/27/2017 9:34 AM EDT 03/27/[address] [facility] (AMBULATORY) - 03/28/2017 5:15 AM EDT Performed at: [address] [id number] Food Checker: Willy Douglass PhD, Phone: [phone] Patient Fasting: N us Vazquez Aldrich MD LAB BLOOD ORDERABLES Final Resu lt [facility] [address] [place] [address], [facility] [address] [place] [address], from Last 3 Months or Most Recently Relevant to Health Maintenance [place] [address] [place] [address] MEDICARE ADVANTAGE PPO Care Teams Purchasing Administrator Relationship Specialty Start Date End Date Santana Jacob MD [address] [facility] [address] [place] [address] PCP - General Internal Medicine 01/22/21
--- OUTSIDE RECORDS SUMMARY | 2025-08-03 10:28 | XMS_ITS | Clinical Summary ---
Author Organization [facility] Address [address] [place] [address] Care Team Providers Care Ice Sculptor Name Role Phone Santana Jacob MD Primary Care Provider [phone] Allergies Active Allergy Reactions Criticality Noted Date [...] (one) time each day. Active HYDROcodone-cece taminophen ([place]) 5-325 MG tablet 03/14/2022 Active escitalopram (Lexapro) [...] Health Maintenance Due Date Last Done Comments [facility]-Bone Density Scan 1945 [facility]-Hepatitis C Screening 1945 [...] 75+ series) 2020 [facility]-Depression Screening 10/23/2023 10/23/2022 [id number] Vaccine ( season) 2025 09/30/2021, 02/09/2021, 01/12/2021 [facility]-Influenza Vaccine (#1) 2025 [...] this topic Insurance [employer] MEDICARE Care Teams Ice Sculptor Relationship Specialty Start Date End Date Santana Jacob MD [address] [place] [address] PCP - General 10/23/22
--- OUTSIDE RECORDS SUMMARY | 2025-08-03 10:28 | XMS_ITS | Encounter Summary ---
Author Organization [facility] Address [address] [place] [address] Care Team Providers Care Cigar Making Supervisor Name Role Phone Santana Jacob MD Primary Care Provider [phone] Encounter Details Date Type Department Care Team (Late st Contact Info) Description 10/11/2014 External CPT II ENGINE REPAIRER SERVICE - [facility] Social History Tobacco Use [...] on filedocumented in this encounter Care Teams Cigar Making Supervisor Relationship Specialty Start Date End Date Santana Jacob MD [address] [facility] [address] [place] [address] PCP - General Internal Medicine 01/22/21 documented as of this encounter
--- OUTSIDE RECORDS SUMMARY | 2025-08-03 10:28 | XMS_ITS | Clinical Summary ---
Author Organization [facility] Address [address] [place] [address] Phone Care Team Providers Care Digital Product Manager Name Role Phone Santana Jacob MD Primary Care Provider [phone] Allergies Active Allergy Reactions Criticality Noted Date [...] 1 Tab by mouth nightly. Active hydrochlorothiaz maire (HYDRODIURIL) 25 mg tablet Take by mouth [...] 03/27/2022 03/27/2017, 12/29/2000 COVID-19 Vaccine (4 - 2024-2 6 season) 2025 09/30/2021, 02/09/2021, 01/12/2021 Influenza Vaccine (#1) 2025 Hepatitis B Vaccine Aged Out No longe r eligible based on patient's age to complete this topic Meningococcal B Vaccine Aged Out No l onger eligible based on patient's age to complete this topic Insurance [employer] MEDICARE PPO MR [employer] MEDICARE PPO MR Care Teams Digital Product Manager Relationship Specialty Start Date End Date Santana Jacob MD [address] [place] [id number] PCP - General Internal Medicine 02/05/13
== END 2025-08-02 23:59 ==
LOC: LAB.DROPOF 08-03 10:24
PROVIDERS: PCP Internal Medicine; Visit Provider Internal Medicine
DX: E87.6 Hypokalemia (principal); I10 Essential (primary) hypertension; D64.9 Anemia, unspecified
CPT/HCPCS: 80048; 85025

== ENCOUNTER 2025-09-04 13:15 | Outpatient (CLI) | payer MEDICARE, SELFPAY ==
--- OUTSIDE RECORDS SUMMARY | 2025-07-19 11:31 | XMS_ITS | Continuity of Care Document ---
Author Organization [facility] Phone Care Team Providers Care Facility Examiner Name Role Phone NURIS TOLLIVER Primary Attending NURIS TOLLIVER Unavailable NONE, NONE Primary Care Unavailable NURIS TOLLIVER Admitting ALLERGIES AND ADVERSE REACTIONS ALLERGIES AND ADVERSE REACTIONS Code System Allergy Substance Adverse Reaction Date Reaction (Severity) Comment Status Reported By Updated By 7984 RXNorm Penicillin Rash active [id number] 0 on July 18, 2025 6:42:30 PM UTC 4053 RXNorm Erythromycin Rash active UDM9 830 on July 18, 2025 6:42:30 PM UTC 7804 RXNorm oxyCODONE Adverse reaction to substance anxiety/i nsomnia active [id number] on July 18, 2025 6:42:30 PM UTC ASSESSMENTS Weakness present ; FAMILY HISTORY RELATION: Father Status: Cause of : Lung mass Age at : Unknown SNOMED-CT Diagnosis Age At Onset Information not available RELATION: Mother Status: Cause of : Chronic leukemia Age at : Unknown SNOMED-CT Diagnosis Age At Onset Information not available PROBLEMS PATIENT PROBLEMS Code Description/Comments Category Status Upda cornelius By [id number] Weakness present active [id number] on July 16, 2025 8:08:57 PM UTC RESULTS Patient: JACOB KAN Date of : [birth year] 2 LABORATORY RESULTS ORDER 100: URINALYSIS (LOINC : 06409-2) ORDER DATE: July 16, 2025 7:59:00 PM UTC Specimen Source: URINE Specimen Type: Urine specime n PERFORMING LAB: [address] [id number] Result Comment: Final Result Date: July 16, 2025 8:06:00 PM UTC (TECH: PJ1) LOINC TEST FLAG RESULT REFERENCE RANGE UPDA CORNELIUS BY 5778-6 Color of Urine N STRAW STRAW - ADELA A ug2024 8:06:00 PM UTC (TECH: PJ1) 5767-9 Appearance of Urine N SLIGHTLY HAZY CLEAR July 16, 2025 8:06:00 PM UTC (TECH: PJ1) 2965-2 Specific gravity of Urine N 1.005 1.003 - 1.035 July 16, 2025 8:06:00 PM UTC (TECH: PJ1) 47351-2 pH of Urine by Automated test strip N 7 4.5 - 8.0 July 16, 2025 8:06:00 PM UTC (TECH: PJ1) 85962-8 Leukocytes [#/volume] in Urine by Test strip N TRACE NEGATIVE July 16, 2025 8:06:00 PM UTC (TECH: PJ1) 90588-7 Nitrate [Presence] in Urine N NEGATIVE NEGATIVE July 16, 2025 8:06:00 PM UTC (TECH: PJ1) 31316-6 Protein [Presence] in Urine by Test strip N NEGATIVE NEGATIVE July 16, 2025 8:06:00 PM UTC (TECH: PJ1) 5792-7 Glucose [Mass/volume] in Urine by Test strip N NORMAL NORMAL July 16, 2025 8:06:00 PM UTC (TECH: PJ1) 5797-6 Ketones [Mass/volume] in Urine by Test strip N NEGATIVE NEGATIVE July 16, 2025 8:06:00 PM UTC (TECH: PJ1) 34545-2 Urobilinogen [Mass/volume] in Urine by Automated test strip N NORMAL NORMAL(0.2-1.0) July 16, 2025 8:06:00 PM UTC (TECH: PJ1) 88864-5 Bilirubin.total [Mass/volume] in Urine by Automated test strip N NEGATIVE NEGATIVE July 16, 2025 8:06:00 PM UTC (TECH: PJ1) 72791-4 Erythrocytes [#/volume] in Urine by Automated test strip N NEGATIVE NEGATIVE July 16, 2025 8:06:00 PM UTC (TECH: PJ1) 81157-4 Microscopic observation [Identifier] in Urine sediment by Light microscopy N YES July 16, 2025 8:06:00 PM UTC (TECH: PJ1) 44613-6 Erythrocytes [#/area] in Urine sediment by Microscopy high power field N NEGATIVE 0 /hpf - 5 /hpf July 16, 2025 8:06:00 PM UTC (TECH: PJ1) 5821-4 Leukocytes [#/area] in Urine sediment by Microscopy high power field N 0-2 /hpf 0 /hpf - 5 /hpf July 16, 2025 8:06:00 PM UTC (TECH: PJ1) 98021-0 Epithelial cells.squamous [#/area] in Urine sediment by Microscopy high power field N 2-5 /hpf 0 /hpf - 5 /hpf July 16, 2025 8:06:00 PM UTC (TECH: PJ1) 5769-5 Bacteria [#/area] in Urine sediment by Microscopy high power field N NEGATIVE NEGATIVE July 16, 2025 8:06:00 PM UTC (TECH: PJ1) 87998-6 Urinalysis dipstick W Reflex Culture panel - Urine N NO July 16, 2025 8:06:00 PM UTC (TECH: PJ1) ORDER 200: CULTURE MRSA SCRE EN (LOINC: 36892-6) ORDER DATE: July 16, 2025 7:59:00 PM UTC Specimen Source: SWAB Specimen Type: Swab PERFORMING LAB: [address] [id number] Result Comment: Final Result Date: July 18, 2025 10:55:00 AM UTC (TECH: KGR) LOINC TEST FLAG RESULT [place] [address]-6 Methicillin resistan t Staphylococcus aureus [Presence] in Nose by Organism specific culture N NEGATIVE NEGATIVE July 18, 2025 10:55:00 AM UTC (TECH: KGR) ORDER 700: COMP METABOLIC PA DAMIAN (LOINC: 48566-6) ORDER DATE: July 16, 2025 8:13:00 PM UTC Specimen Source: PLASMA Specimen Type: Plasma specim en PERFORMING LAB: [address] [id number] Result Comment: Final Result Date: July 17, 2025 11:23:00 AM UTC (TECH: RG) LOINC TEST FLAG RESULT REFERENCE RANGE UPDA CORNELIUS BY 2951-2 Sodium [Moles/volume ] in Serum or Plasma L 135 mmol/L 136 mmol/L - 145 mmol/L July 17, 2025 11:23:00 AM UTC (TECH: RG) 2823-3 Potassium [Moles/volume] in Serum or Plasma L 3.1 mmol/L 3.5 mmol/L - 5.1 mmol/L July 17, 2025 11:23:00 AM UT (TECH: RG) 5-0 Chloride [Moles/volume] in Serum or Plasma N 100 mmol/L 98 mmol/L - 107 mmol/L July 17, 2025 11:23:00 AM UT (TECH: RG) 8-9 Carbon dioxide, tota l [Moles/volume] in Serum or Plasma N 28 mmol/L 23 mmol/L - 31 mmol/L July 17, 2025 11:23:00 AM UT (TECH: RG) 12151-3 Anion gap in Blood N 10.0 mmol/L 5 mmo l/L - 15 mmol/L July 17, 2025 11:23:00 AM [facility] (TECH: RG) 2345-7 Glucose [Mass/volume ] in Serum or Plasma N 106 mg/dL 70 mg/dL - 110 mg/dL July 17, 2025 11:23:00 AM UT (TECH: RG) 3094-0 Urea nitrogen [Mass/volume] in Serum or Plasma N 10 mg/dL 8 mg/dL - 23 mg/dL July 17, 2025 11:23:00 AM UT (TECH: RG) 2160-0 Creatinine [Mass/volume] in Serum or Plasma L 0.5 mg/dL 0.6 mg/dL - 1.3 mg/dL July 17, 2025 11:23:00 AM [facility] (TECH: RG) 01548-5 Glomerular filtratio n rate/1.73 sq M.predicted N 95 mL/min >89 July 17, 2025 11:23:00 AM UT (TECH: RG) 2885-2 Protein [Mass/volume ] in Serum or Plasma L 5.5 g/dL 6.3 g/dL - 8.2 g/dL July 17, 2025 11:23:00 AM UT (TECH: RG) 1751-7 Albumin [Mass/volume ] in Serum or Plasma L 2.2 g/dL 3.2 g/dL - 4.6 g/dL July 17, 2025 11:23:00 AM UT (TECH: RG) 94053-2 Calcium [Mass/volume ] in Serum or Plasma N 9.7 mg/dL 8.5 mg/dL - 10.7 mg/dL July 17, 2025 11:23:00 AM [facility] (TECH: [employer]ropy[employer]) 1975-2 Bilirubin.total [Mass/volume] in Serum or Plasma N 0.8 mg/dL 0.2 mg/dL - 1.3 mg/dL July 17, 2025 11:23:00 AM [facility] (TECH: RG) 1920-8 Aspartate aminotransferase [Enzymatic activity/volume] in Serum or Plasma N 16 U/L 5 U/L - 36 U/L July 17, 2025 11:23:00 AM [facility] (Evino: RG) 1742-6 Alanine aminotransferase [Enzymatic activity/volume] in Serum or Plasma N 28 U/L 12 U/L - 78 U/L July 17, 2025 11:23:00 AM [facility] (Evino: RG) 6768-6 Alkaline phosphatase [Enzymatic activity/volume] in Serum or Plasma N 53 U/L 46 U/L - 116 U/L July 17, 2025 11:23:00 AM [facility] (TECH: [employer]) ORDER 800: CBC AUTO W DIFF ( LOINC: 43272-5) ORDER DATE: July 16, 2025 8:13:00 PM [facility] Specimen Source: WHOLE BLOOD Specimen Type: Whole blood s ample PERFORMING LAB: [address] [id number] Result Comment: Final Result Date: July 17, 2025 9:58:00 AM [facility] (TECH: [employer]) LOINC TEST FLAG RESULT REFERENCE RANGE UPDA CORNELIUS BY 6690-2 Leukocytes [#/volume] in Blood by Automated count N 10.3 K/uL 4.5 K/uL - 11.5 K/uL July 17, 2025 9:58:00 AM [facility] (TECH: [employer]) 789-8 Erythrocytes [#/volume] in Blood by Automated count L 2.76 M/uL 3.70 M/uL - 5.48 M/uL July 17, 2025 9:58:00 AM [facility] (TECH: [employer]) 718-7 Hemoglobin [Mass/volume] in Blood L 9.1 g/dL 12.0 g/dL - 15.7 g/dL July 17, 2025 9:58:00 AM [facility] (TECH: [employer]) 79479-7 Hematocrit [Volume Fraction] of Blood L 27.2 % 35 % - 47 % July 17, 2025 9:58:00 AM UTC (TECH: RG) 787-2 Erythrocyte mean corpuscular volume [Entitic volume] by Automated count H 99 fL 80 fL - 95 fL July 17, 2025 9:58:00 AM UTC (TECH: RG) 41997-6 Erythrocyte mean corpuscular hemoglobin [Entitic mass] in Blood from Fetus by Automated count N 33 pg 27 pg - 34 pg July 17, 2025 9:58:00 AM UTC (TECH: RG) 21714-0 Erythrocyte mean corpuscular hemoglobin concentration [Mass/volume] in Blood from Fetus by Automated count N 34 g/dL 32 g/dL - 36 g/dL July 17, 2025 9:58:00 AM UTC (TECH: RG) 42427-8 Erythrocyte distribution width [Entitic volume] by Automated count N 14.4 % 11.5 % - 14.5 % July 17, 2025 9:58:00 AM UTC (TECH: RG) 777-3 Platelets [#/volume] in Blood by Automated count N 233 K/uL 150 K/uL - 450 K/uL July 17, 2025 9:58:00 AM UTC (TECH: RG) 11051-9 Manual Differential panel - Blood N NO July 17, 2025 9:58:00 AM UTC (TECH: RG) 770-8 Neutrophils/100 leukocytes in Blood by Automated count N 73 % 40 % - 75 % July 17, 2025 9:58:00 AM UTC (TECH: RG) 736-9 Lymphocytes/100 leukocytes in Blood by Automated count L 13 % 17 % - 47 % July 17, 2025 9:58:00 AM UTC (TECH: RG) 5905-5 Monocytes/100 leukocytes in Blood by Automated count N 10 % 4 % - 12 % July 17, 2025 9:58:00 AM UTC (TECH: RG) 713-8 Eosinophils/100 leukocytes in Blood by Automated count N 2 % 0 % - 4 % July 17, 2025 9:58:00 AM UTC (TECH: RG) 706-2 Basophils/100 leukocytes in Blood by Automated count N 0 % 0 % - 1 % July 17, 2025 9:58:00 AM UTC (TECH: RG) 84775-4 Granulocytes [#/volume] in Blood N 7.51 K/uL 1.80 K/uL - 8.62 K/uL July 17, 2025 9:58:00 AM UTC (TECH: RG) 731-0 Lymphocytes [#/volume] in Blood by Automated count N 1.38 K/uL 0.76 K/uL - 5.40 K/uL July 17, 2025 9:58:00 AM UTC (TECH: RG) 742-7 Monocytes [#/volume] in Blood by Automated count N 1.01 K/uL 0.18 K/uL - 1.38 K/uL July 17, 2025 9:58:00 AM UTC (TECH: RG) 711-2 Eosinophils [#/volume] in Blood by Automated count N 0.21 K/uL 0.00 K/uL - 0.46 K/uL July 17, 2025 9:58:00 AM UT (TECH: RG) 704-7 Basophils [#/volume] in Blood by Automated count N 0.04 K/uL 0.00 K/uL - 0.11 K/uL July 17, 2025 9:58:00 AM UT (TECH: RG) ORDER 1500: MAGNESIUM (LOINC : 45625-8) ORDER DATE: July 17, 2025 11:23:00 AM UT Specimen Source: PLASMA Specimen Type: Plasma specim en PERFORMING LAB: [address] [id number] Result Comment: Final Result Date: July 17, 2025 11:43:00 AM [facility] (TECH: RG) LOINC TEST FLAG RESULT [place] [address]-7 Magnesium [Mass/volume] in Serum or Plasma L 1.5 mg/dL 1.6 mg/dL - 2.6 mg/dL July 17, 2025 11:43:00 AM UT (TECH: RG) LABORATORY NARRATIVE RESULTS Information is not available RADIOLOGY RESULTS ORDER 1700: NVL DUPLX VEIN B ILAT LOWER EXT (LOINC: 04390-1) ORDER DATE: July 18, 2025 2:04:00 PM UT PERFORMING LAB: [address] [id number] Final Result Date: July 18, 2025 3:01:[address] [place] [address] Name: LORETA JAMES Exam Date: 07/18/2025 : 1945 Age 79 years Gender: F Exam: NVL DUPLX VEIN BILAT LOWER EXT Physician: Nuris Tolliver Facility: [facility] Facility HSV: Inpatient EXAMINATION: US LOWER EXTREMITY VEINS BILATERAL INDICATION: eval dvt TECHNIQUE: High resolution grayscale and venous duplex sonographic imaging of the deep veins of both lower extremities was performed. Transverse imaging performed without and with compression. COMPARISON: None. FINDINGS: Normal patency flow and compressibility of the interrogated lower extremity deep veins. IMPRESSION: No sonographic evidence of lower extremity deep vein thrombosis. Electronically signed by: Baltazar Flores DO 07/18/2025 11:58 AM EDT Dictated By: BALTAZAR FLORES Transcribed By: Transcribed On: 07/18/2025 11:01 AM Electronically signed by: BALTAZAR FLORES 07/18/2025 Thank you for referring LORETA JAMES to [facility]. Legally authenticated by NICHOLE LEDESMA 2025-07-18 11:01:46 PATHOLOGY NARRATIVE RESULTS Information is not available MICROBIOLOGY RESULTS No Micro Labs/Results Exist for Patient BLOOD ADMIN RESULTS Information is not available TREATMENT PLAN DISCHARGE MEDICATIONS Status RXNORM Medication Dose Route Frequency Dates Comments U pdated By Continued 377601 Escitalopram Oxalate Oral Tablet 20 MG 1 TAB ORAL ONCE DAILY Prescribed : July 18, 2025 4:53:53 PM UT [id number] on July 18, 2025 4:53:53 PM UT Continued 771166 clonazePAM Oral Tablet 0.5 MG 1 TAB ORAL ONCE DAILY Prescribed : July 18, 2025 4:53:53 PM UTC [id number] on July 18, 2025 4:53:53 PM UT Continued Turmeric (Curcumin) Oral Capsule 500 MG ORAL ONCE DAILY Prescribed : July 18, 2025 4:53:53 PM UTC [id number] on July 18, 2025 4:53:53 PM UT Continued 870091 levofloxacin (LEVAQUIN) 750 MG ORAL AT BEDTIME Prescribed : July 18, 2025 4:53:53 PM UT [id number] on July 18, 2025 4:53:53 PM UT Continued 751566 Losartan Potassium Oral Tablet 100 MG 1 TAB ORAL ONCE DAILY Prescribed : July 18, 2025 4:53:53 PM [id number] July 18, 2025 4:53:53 PM UT Continued 306267 Iron (Ferrous Sulfate) Oral Tablet 325 (65 Fe) MG 1 TAB ORAL ONCE DAILY Prescribed : July 18, 2025 4:53:53 PM [id number] on July 18, 2025 4:53:53 PM UT Continued 752408 Vitamin D (Cholecalcifer ol) Oral Capsule 50 MCG (1999 UT) 1 TAB ORAL ONCE DAILY Prescribed : July 18, 2025 4:53:53 PM [place] [id number] on July 18, 2025 4:53:53 PM UT Continued 657090 Tylenol Extra Strength Oral Tablet 500 MG 2 TAB ORAL EVERY SIX HOURS NEEDED Prescribed : July 18, 2025 4:53:53 PM [id number] on July 18, 2025 4:53:53 PM UT Continued 999635 amLODIPine Besy-Benazepri l HCl Oral Capsule 10-20 MG 10 MG ORAL ONCE DAILY Prescribed : July 18, 2025 4:53:53 PM [id number] on July 18, 2025 4:53:53 PM UT Continued 9705783 potassium chloride (KDUR) 20 MEQ 20 MEQ ORAL TWICE A DAY Prescribed : July 18, 2025 4:58:35 PM [id number] on July 18, 2025 4:58:35 PM UT Continued 505439 NORCO (LORTAB) 5-325 MG 1 TAB ORAL EVERY SIX HOURS NEEDED Prescribed : July 18, 2025 6:39:27 PM [place] [id number] on July 18, 2025 6:39:27 PM [facility] PATIENT OPEN ORDERS Code System Descriptio n Frequency Occurrenc es Priority Category [place] [address]-2 LOINC Methicilli n resistant Staphyloco ccus aureus [Pr ONE TIME 0 Routine July 16, 2025 8:12:00 PM UT ADRIAN [id number] on July 16, 2025 8:13:00 PM [facility] SCHEDULED PROCEDURES Code System Description Status Scheduled Date Upd ated By Patient scheduled procedure information is not available. HOSPITAL COURSE HOSPITAL COURSE Note Title Discharge Summary Date Of Service July 18, 2025 4: 56:06 PM UT Created By LAVERN on July 18, 2025 4:56:06 PM [facility] Signed By [id number] on July 18, 2025 4:59:17 PM [facility] - hypokalemia - oral supplem ent, recheck - weakness - PT/OT eval and treat- UTI/CAP - finish course of abx- possible PE/DVT - continue eliquis, le venous studies orderedPatient was seen at bedside and discussed at IDT (with nursing, pharmacy, case management and ST/PT/OT input). &Acirc; Doing well and progressing towards goals, will continue current plan of care. &Acirc; Family and patient issues were addressed as relayed by staff.07/18/2025Secondary to insurance issues patient will go ahead and go home today with home health.&Acirc; U/S negative for dvt, stop eliquis on discharge, pain meds called in with levaquin for 5 more days.Patient was seen at bedside and discussed at IDT (with nursing, pharmacy, case management and ST/PT/OT input). &Acirc; Doing well and progressing towards goals, will continue current plan of care. &Acirc; Family and patient issues were addressed as relayed by staff. &Acirc; Patient has met goals of swing bed care. &Acirc; Home later today. &Acirc; Meds reconciled with patient and care team and prescribed as needed. MEDICATIONS HOME MEDICATIONS Status RXNORM [facility] Medication Dose Route Frequency Dates Comments Reported By Updated By Active 2216899 64617 72898 1 Eliquis Oral Tablet 5 MG 2.0 TAB ORAL DAILY Last Dose: [id number] on July 16, 2025 4:27:35 PM [facility] Active 04908 37397 2 Iron (Ferrous Sulfate) Oral Tablet 325 (65 Fe) MG 1.0 TAB ORAL DAILY Last Dose: [id number] on July 16, 2025 8:09:32 PM [facility] Active 11643 92958 5 Milk of Magnesia Oral Suspension 7.75 % 1.0 SYR ORAL DAILY Last Dose: [id number] on July 16, 2025 8:11:24 PM [facility] Active 5409396 57081 87842 0 Percocet Oral Tablet 5-325 MG 1.0 TAB ORAL Q4HPRN Last Dose: q4prn [id number] on July 16, 2025 8:10:04 PM [facility] Active 988149 21764 64560 1 amLODIPine Besy-Benazep ril HCl Oral Capsule 10-20 MG 10.0 MG ORAL DAILY Last Dose: [id number] on July 16, 2025 4:33:34 PM UT Active 774449 79895 92690 1 clonazePAM Oral Tablet 0.5 MG 1.0 TAB ORAL DAILY Last Dose: [id number] on July 16, 2025 4:34:18 PM UT Active 872861 70040 00635 1 Escitalopram Oxalate Oral Tablet 20 MG 1.0 TAB ORAL DAILY Last Dose: [id number] on July 16, 2025 4:34:57 PM UT Active 862628 67197 41655 0 Losartan Potassium Oral Tablet 100 MG 1.0 TAB ORAL DAILY Last Dose: [id number] on July 16, 2025 4:35:42 PM [facility] Active 15102 27122 7 Turmeric (Curcumin) Oral Capsule 500.0 MG ORAL DAILY Last Dose: [id number] on July 16, 2025 8:10:24 PM [facility] Active 498828 25304 68041 0 Tylenol Extra Strength Oral Tablet 500 MG 2.0 TAB ORAL Q6HPRN Last Dose: [id number] on July 16, 2025 8:10:54 PM [facility] Active 08538 97705 3 Vitamin D (Cholecalcif merced) Oral Capsule 50 MCG (1999) 1.0 TAB ORAL DAILY Last Dose: [id number] on July 16, 2025 8:11:08 PM [facility] DISCHARGE MEDICATIONS Status RXNORM [facility] Medication Dose Route Frequency Dates Dis pense Data Comments Physician Updated By Continu ed 350079 2318 2 501 Escitalopra m Oxalate Oral Tablet 20 MG 1.0 TAB ORAL ONCE DAILY Prescr ibed: 2024 4:53:5 3 PM [facility] ADRIAN Gardner PHY [id number] on 2024 4:53:53 PM UT Continu ed 047152 4514 3083 201 clonazePAM Oral Tablet 0.5 MG 1.0 TAB ORAL ONCE DAILY Prescr ibed: 2024 4:53:5 3 PM [facility] ADRIAN Gardner PHY [id number] on 2024 4:53:53 PM [facility] Continu ed 7431 7883 417 Turmeric (Curcumin) Oral Capsule 500.0 MG ORAL ONCE DAILY Prescr ibed: 2024 4:53:5 3 PM UT ADRIAN MCKINNEYKT Gardner BJY [id number] [facility] 20[facility] 4:53:53 PM [facility] ed 391763 4819 1028 130 levofloxaci n (LEVAQUIN) 750.0 MG ORAL AT BEDTIME Prescr ibed: 2024 4:53:5 3 PM UT ADRIAN Gardner PHY [id number] [facility] 20[facility] 4:53:53 PM [facility] Continu ed 482168 8487 2019 330 Losartan Potassium Oral Tablet 100 MG 1.0 TAB ORAL ONCE DAILY Prescr ibed: 2024 4:53:5 3 PM UT ADRIAN Gardner PHY [id number] [facility] 20[facility] 4:53:53 PM [facility] ed 413015 0120 4004 252 Iron (Ferrous Sulfate) Oral Tablet 325 (65 Fe) MG 1.0 TAB ORAL ONCE DAILY Prescr ibed: 2024 4:53:5 3 PM UT ADRIAN Gardner PHY [id number] [facility] 20[facility] 4:53:53 PM [facility] ed 259816 2061 4009 073 Vitamin D (Cholecalci ferol) Oral Capsule 50 MCG (1999) 1.0 TAB ORAL ONCE DAILY Prescr ibed: 2024 4:53:5 3 PM [facility] ADRIAN Gardner PHY [id number] [facility] 4:53:53 PM [facility] Continu ed 871022 6609 5044 910 Tylenol Extra Strength Oral Tablet 500 MG 2.0 TAB ORAL EVERY SIX HOURS NEEDED Prescr ibed: 2024 4:53:5 3 PM UT ADRIAN Gardner PHY [id number] [facility] 2024 4:53:53 PM [facility] Continu ed 563232 8605 1034 101 amLODIPine Besy-Benaze pril HCl Oral Capsule 10-20 MG 10.0 MG ORAL ONCE DAILY Prescr ibed: 2024 4:53:5 3 PM UT ADRIAN Gardner PHY [id number] on 2024 4:53:53 PM [facility] Continu ed 6852063 5808 5531 901 potassium chloride (KDUR) 20 MEQ 20.0 MEQ ORAL TWICE A DAY Prescr ibed: 2024 4:58:3 5 PM UT ADRIAN Gardner PHY [id number] on 2024 4:58:35 PM [facility] Continu ed 959082 6068 4682 461 NORCO (LORTAB) 5-325 MG 1.0 TAB ORAL EVERY SIX HOURS NEEDED Prescr ibed: 2024 6:39:2 7 PM UT ADRIAN RAMSAY [id number] on 2024 6:39:27 PM [facility] INPATIENT MEDICATIONS Status RXNORM [facility] Medication Dose Route Frequency Rat e Quantity Dates Indication Dispense Data Comments Physician Updated By Discont inued Free Text Med Iron (Ferrous Sulfate) Oral Tablet 325 (65 Fe) MG 1.0 TAB ORAL ONCE DAILY Start: 2024 1:00:0 0 PM UT End: 2024 1:00:0 0 PM UT ADRIAN Gardner [id number] on July 16, 2025 8:17:00 PM UT Discont inued 152732 4974 3083 201 clonazePAM (KlonoPIN) 0.5 MG TABS 0.5 MG ORAL ONCE DAILY Start: 2024 1:00:0 0 PM UT End: 2024 12:32: 32 AM UT TOLLIVER NURIS Gardner [id number] on 2024 12:32:00 AM UT Discont inued Free Text Med amLODIPine Besy-Benaze pril HCl Oral Capsule 10-20 MG 10.0 MG ORAL ONCE DAILY Start: 2024 1:00:0 0 PM UT End: 2024 1:00:0 0 PM UT ADRIAN Gardner JRICE on July 16, 2025 8:45:00 PM UT Discont inued Free Text Med Tylenol Extra Strength Oral Tablet 500 MG 2.0 TAB ORAL EVERY SIX HOURS NEEDED Start: July 16, 2025 8:10:0 0 PM UTC End: July 16, 2025 8:21:3 5 PM UTC TOLLIVER NURIS A [id number] on July 16, 2025 8:21:00 PM UTC Discont inued Free Text Med Turmeric (Curcumin) Oral Capsule 500.0 MG ORAL ONCE DAILY Start: 2024 1:00:0 0 PM UTC End: 2024 1:00:0 0 PM UTC ADRIAN MKCINNEYKT Gardner JUSTEN on July 16, 2025 8:32:00 PM UTC Discont inued Free Text Med Percocet Oral Tablet 5-325 MG 1.0 TAB ORAL EVERY FOUR HOURS NEEDED Start: July 16, 2025 8:09:0 0 PM UTC End: July 16, 2025 8:19:5 9 PM UTC TOLLIVER NURIS Gardner [id number] on July 16, 2025 8:19:00 PM UTC Discont inued Free Text Med Vitamin D (Cholecalci ferol) Oral Capsule 50 MCG (1999 UT) 1.0 TAB ORAL ONCE DAILY Start: 2024 1:00:0 0 PM UTC End: 2024 1:00:0 0 PM UTC ADRIAN MCKINNEYKT Gardner [id number] on July 16, 2025 8:18:00 PM UTC Discont inued Free Text Med Escitalopra m Oxalate Oral Tablet 20 MG 1.0 TAB ORAL ONCE DAILY Start: 2024 1:00:0 0 PM UTC End: 2024 1:00:0 0 PM UTC ADRIAN MCKINNEYIAN Jj [id number] on July 16, 2025 8:19:00 PM UTC Discont inued 7144000 1828 3089 431 apixaban (ELIQUIS) 5 MG TABS 10.0 MG ORAL ONCE DAILY Start: 2024 1:00:0 0 PM UTC End: 2024 1:00:0 0 PM UTC ADRIAN Gardner [id number] 2024 2:07:00 AM UTC Discont inued 941305 3377 4759 161 ferrous sulfate (FEOSOL) 325 (65 FE) MG TABS 325.0 MG ORAL ONCE DAILY Start: 2024 1:00:0 0 PM UTC End: 2024 6:39:2 7 PM UTC ADRIAN Gardner [id number] on [facility] 2024 3:55:00 AM UTC Discont inued 2054 5003 300 cholecalcif merced (VITAMIN D3) 1000 UNIT (25 MCG) TA 2000. 0 UNT ORAL ONCE DAILY Start: 2024 1:00:0 0 PM UTC End: 2024 6:39:2 7 PM UTC ADRIAN Gardner [id number] on [facility] 2024 3:55:00 AM UTC Discont inued 577460 7955 4642 661 escitalopra m (LEXAPRO) 10 MG TABS 20.0 MG ORAL ONCE DAILY Start: 2024 1:00:0 0 PM UTC End: 2024 6:39:2 7 PM UTC ADRIAN Gardner [id number] on [facility] 2024 3:55:00 AM UTC Discont inued [id number] 262 PERCOCET 5-325 MG TABS 1.0 TAB ORAL EVERY FOUR HOURS NEEDED Start: July 16, 2025 8:19:0 0 PM UTC End: 2024 7:40:3 5 AM UTC ADRIAN Gardner [id number] on [facility] 2024 7:40:00 AM UTC Discont inued [id number] acetaminoph en (TYLENOL) 500 MG TABS 1000. 0 MG ORAL EVERY SIX HOURS NEEDED Start: July 16, 2025 8:21:0 0 PM UTC End: 2024 6:39:2 7 PM UTC ADRIAN Gardner [id number] on [facility] 2024 3:55:00 AM UTC Discont inued XXXX [id number] 024 PATIENTS OWN MED 1 DOSE MISC 1.0 DOS ORAL ONCE DAILY Start: 2024 1:00:0 0 PM UTC End: 2024 6:39:2 7 PM UTC ADRIAN Gardner [id number] on [facility] 2024 3:55:00 AM UTC Discont inued [id number] amLODIPine (NORVASC) 5 MG TABS 10.0 MG ORAL ONCE DAILY Start: 2024 1:00:0 0 PM UTC End: 2024 6:39:2 7 PM UTC ADRIAN Gardner [id number] on [facility] 2024 3:55:00 AM UTC Discont inued [id number] [id number] 7033 301 lisinopril (ZESTRIL) 20 MG TABS 20.0 MG ORAL ONCE DAILY Start: 2024 1:00:0 0 PM UTC End: 2024 6:39:2 7 PM UTC ADRIAN Gardner [facility] 2024 3:55:00 AM UTC Discont inued [id number] 6936 2084 901 famotidine (PEPCID) 20 MG TABS 20.0 MG ORAL TWICE A DAY Start: 2024 1:00:0 0 AM UTC End: 2024 6:39:2 7 PM UTC 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 [facility] 3:55:00 AM UTC Discont inued [id number] 8131 3089 431 apixaban (ELIQUIS) 5 MG TABS 10.0 MG ORAL TWICE A DAY Start: 2024 1:10:0 0 AM UTC End: 2024 6:39:2 7 PM UTC 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 [facility] 2024 3:55:00 AM UTC Discont inued 1025429 9498 3089 431 apixaban (ELIQUIS) 5 MG TABS 5.0 MG ORAL TWICE A DAY Start: 2024 1:00:0 0 PM UTC End: 2024 7:13:0 0 PM UTC FURNISH GERMAN B ADVERTISING SALES EXECUTIVE JPOGUE [facility] 2:06:00 AM UTC Discont inued 644979 3081 1028 130 levofloxaci n (LEVAQUIN) 750 MG TABS 750.0 MG ORAL ONCE DAILY Start: 2024 1:00:0 0 PM UTC End: 2024 1:00:0 0 PM UTC FURNISH GERMAN B ADVERTISING SALES EXECUTIVE JPOGUE on [facility] 2024 2:07:00 AM UTC Discont inued 8180925 8477 3089 431 apixaban (ELIQUIS) 5 MG TABS 5.0 MG ORAL TWICE A DAY Start: 2024 1:00:0 0 AM UTC End: 2024 7:13:0 0 PM UTC FURNISH GERMAN B ADVERTISING SALES EXECUTIVE [id number] on [facility] 2024 4:11:00 PM UTC Discont inued 918449 4324 1028 130 levofloxaci n (LEVAQUIN) 750 MG TABS 750.0 MG ORAL AT BEDTIME Start: 2024 2:07:0 0 AM UTC End: 2024 7:13:0 0 PM UTC 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 on [facility] 2024 3:55:00 AM UTC Discont inued 802629 4128 4572 514 MAALOX ES/MINTOX ES/ALMACONE 2 7484-2336-2 40 MG/30 30.0 ML ORAL EVERY SIX HOURS NEEDED Start: 2024 3:25:0 0 AM UTC End: 2024 6:39:2 7 PM UTC 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 on [facility] 2024 3:55:00 AM UTC Discont inued 7140636 6204 7012 901 docusate sodium 100 MG CAPS 100.0 MG ORAL TWICE A DAY NEEDED Start: 2024 3:25:0 0 AM UTC End: 2024 6:39:2 7 PM UTC 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 on [facility] 2024 3:55:00 AM UTC Discont inued 440895 1871 2001 452 polyethylen e glycol 3350 (MIRALAX) 17 GM PACK 17.0 GM ORAL ONCE DAILY NEEDED Start: 2024 3:25:0 0 AM UTC End: 2024 6:39:2 7 PM UTC FURNDAO Marlow ADVERTISING SALES EXECUTIVE RX0P23 on [facility] 2024 3:55:00 AM UTC Discont inued 0053 6247 085 MILK OF MAGNESIA (MOM) 2400 MG/30 ML SUSP 30.0 ML ORAL ONCE DAILY NEEDED Start: 2024 3:25:0 0 AM UTC End: 2024 6:39:2 7 PM UTC PASHA PORTER B ADVERTISING SALES EXECUTIVE RX0P23 on [facility] 2024 3:55:00 AM UTC Discont inued 611518 6915 1024 617 ondansetron (ZOFRAN) 4 MG ODT TBDP 4.0 MG ORAL EVERY SIX HOURS NEEDED Start: 2024 3:25:0 0 AM UTC End: 2024 6:39:2 7 PM UTC ISREALDAO Marlow ADVERTISING SALES EXECUTIVE RX0P23 on [facility] 2024 3:55:00 AM UTC Discont inued 209994 7493 8002 302 magnesium oxide (MAG-OX) 400 MG TABS 400.0 MG ORAL TWICE A DAY Start: 2024 3:48:0 0 PM UTC End: 2024 6:39:2 7 PM UTC ADRIAN Gardner RX0P23 on [facility] 2024 3:55:00 AM UTC Discont inued 2366425 7151 5531 901 potassium chloride (KDUR) 20 MEQ TBCR 20.0 MEQ ORAL TWICE A DAY Start: 2024 3:48:0 0 PM UTC End: 2024 7:13:0 0 PM UTC ADRIAN Gardner RX0P23 on [facility] 2024 3:55:00 AM UTC Discont inued 375665 3708 3083 201 clonazePAM (KlonoPIN) 0.5 MG TABS 0.5 MG ORAL TWICE A DAY Start: 2024 1:00:0 0 AM UTC End: 2024 6:39:2 7 PM UTC KATLIN Bell RX0P23 on [facility] 2024 3:55:00 AM UTC Discont inued 370279 6591 4682 461 NORCO (LORTAB) 5-325 MG TABS 1.0 TAB ORAL EVERY SIX HOURS NEEDED Start: 2024 7:40:0 0 AM UTC End: 2024 7:13:0 0 PM UTC KATLIN Bell [facility]P23 [facility] 3:55:00 AM UTC Discont inued XXXX XXX0 064 * INFORMATION MISC 1.0 EA RX ADDEND UM NEEDED Start: 2024 4:55:0 0 PM UTC End: 2024 6:39:2 7 PM UTC ADRIAN Gardner RX[facility]P23 [facility] 2024 3:55:00 AM UTC SOCIAL HISTORY SOCIAL HISTORY - Smoking Status SNOMED-CT Social History Element Description Effective Dates Offered Cessation Comment Updated By [id number] Current Tobacco smoking status Former Smoker [id number] on July 16, 2025 7:41:05 PM UTC SOCIAL HISTORY - Gender Sex: Female SOCIAL HISTORY - Status : status i nformation is not available Intention in Next Year: intention information is not available SOCIAL HISTORY - Assessments Code System Description Status Date Value of Assessment Updated By Comment Assessment Information is no t available SOCIAL HISTORY - Napaimute Affiliation Napaimute information is not av ailable SOCIAL HISTORY - Legal Sex Legal Sex information is not available SOCIAL HISTORY - Sexual Behavior Sexual Orientation Gender Identity SNOMED-CT Description SNO MED -CT Description Activity Level No of Partners Partner Type UpdatedBy Information is not available SOCIAL HISTORY - Occupation Occupation information is no t available VITAL SIGNS PATIENT VITAL SIGNS This section displays the mo st recent value for each vital sign as of July 19, 2025 3:31:53 PM UT Loinc Code Vital Sign Activity Date Result Updated By 8302-2 Body height July 16, 2025 7:31:54 PM UT 154.94 cm (61.0 in) [id number] on July 16, 2025 7:31:54 PM UTC 40048-0 Body mass index (BMI ) [Ratio] July 16, 2025 7:31:54 PM UTC 24.452 kg/m2 3140-1 Body Surface Area Derived From Formula July 16, 2025 7:31:54 PM UTC 1.57 m2 8310-5 Body temperature July 18 7:38:00 AM UTC 97.9 [degF] 66103-4 Body weight Measured July 16, 2025 7:31:54 PM UTC 56.8 kg (125.0 lb) [id number] on July 16, 2025 7:31:54 PM UTC 8462-4 Diastolic blood pressure July 18, 2025 7:38:00 AM UTC 59.0 mm[Hg] 8867-4 Heart rate July 18 7:38:00 AM UTC 67 /min 8478-0 Mean blood pressure July 18, 2025 7:38:00 AM UTC 85.0 mm[Hg] 36807-7 Oxygen saturation in Arterial blood by Pulse oximetry July 18, 2025 7:38:00 AM UTC 100.0 % 9279-1 Respiratory rate July 18 7:38:00 AM UTC 20 /min 8480-6 Systolic blood pressure July 18, 2025 7:38:00 AM UTC 123.0 mm[Hg] 9277-5 Type of Breath rate device July 18, 2025 2:34:00 PM UTC 1000.0 ml PEDIATRIC GROWTH CHART - VITAL SIGNS This section displays Head C ircumference Percentile, Weight for Length Percentile and BMI Percentile Loinc Code Pediatric Measure Age (Months) Result Updat ed By No Pediatric Growth Chart Pe rcentile Information Available. GOALS PATIENT GOALS Goal Assigned Date Updated By LORETA AJMES REMAINS FREE FROM COMPLICATIONS FOR SWING BED ADMIT DURING THE CARE PERIOD July 16, 2025 [id number] on July 16, 2025 7:27:22 PM UTC *LORETA JAMES WILLPARTICIPATE IN PROGRAM TO MEET DISCHARGE GOAL BY PARTICIPATING IN REHABILITATION PROGRAM AND MONITORING RECENT ACUTE CARE PROCESS July 16, 2025 [id number] on July 16, 2025 7:27:22 PM UTC *LORETA JAMES WILLPARTICIPATE IN PROGRAM TO MEET DISCHARGE GOAL BY PARTICIPATING IN REHABILITATION PROGRAM AND MONITORING RECENT ACUTE CARE PROCESS July 16, 2025 [id number] on July 16, 2025 7:27:22 PM UTC LORETA JAMES REMAINS FREE FROM COMPLICATIONS OF PNEUMONIA DURING THE CARE PERIOD July 16, 2025 [id number] on July 17, 2025 3:33:41 AM UTC HEALTH CONCERNS Problems Concern Status Health Concern problem infor mation not available. Smoking Status Status Years Used Consumed packs p er day Health Concern smoking histo ry information not available. Family History Concern Status Health Concern family histor y information not available. ENCOUNTERS ENCOUNTER INFORMATION Reason for Visit SWING Admission July 16, 2025 7:23:00 PM UTC B [facility] [address] [facility] [place] [place] [place] [address] Discharge July 18, 2025 7:13:00 PM UTC HOME UNDER CARE OF HOME HEALTH ORG ENCOUNTER DIAGNOSES Note Title Discharge Summary Date Of Service July 18, 2025 4: 56:06 PM UTC Created By LAVERN on July 18, 2025 4:56:06 PM UTC Signed By LAVERN on July 18, 2025 4:59:17 PM UTC Code System Diagnosis Onset Date [id number] SNOMED-CT Weakness present ABSTRACT DIAGNOSES Code System Diagnosis Updated By Abatement Date R53.1 ICD10 WEAKNESS [id number] on Jul 3:30:23 PM UTC R53.1 ICD10 WEAKNESS [id number] on Jul 3:30:23 PM UTC I26.99 ICD10 OTHER PULMONARY EMBOLISM WITHOUT ACUTE COR PULMONALE [id number] on July 19, 2025 3:30:23 PM UTC J18.9 ICD10 PNEUMONIA, UNSPE CIFIED ORGANISM [id number] on July 19, 2025 3:30:23 PM UTC N39.0 ICD10 URINARY TRACT IN FECTION, SITE NOT SPECIFIED [id number] on July 19, 2025 3:30:23 PM UTC S72.002D ICD10 FRACTURE OF UNSP ECIFIED PART OF NECK OF LEFT FEMUR, SUBSEQUENT ENCOUNTER FOR CLOSED FRACTURE WITH ROUTINE HEALING [id number] on July 19, 2025 3:30:23 PM UTC M19.90 ICD10 UNSPECIFIED OSTE OARTHRITIS, UNSPECIFIED SITE [id number] on July 19, 2025 3:30:23 PM UTC E87.6 ICD10 HYPOKALEMIA [id number] on Jul 3:30:23 PM UTC I11.0 ICD10 HYPERTENSIVE HEA RT DISEASE WITH HEART FAILURE [id number] on July 19, 2025 3:30:23 PM UT I50.9 ICD10 HEART FAILURE, UNSPECIFIED N [id number] on July 19, 2025 3:30:23 PM UT Z79.899 ICD10 OTHER CUTTER WET MACHINE (CURRENT) DRUG THERAPY [id number] on July 19, 2025 3:30:23 PM UT Z90.710 ICD10 ACQUIRED ABSENCE OF BOTH CERVIX AND UTERUS [id number] on July 19, 2025 3:30:23 PM UT Z98.890 ICD10 OTHER SPECIFIED POSTPROCEDURAL STATES [id number] on July 19, 2025 3:30:23 PM UT Z88.0 ICD10 ALLERGY STATUS TO PENICILLIN [id number] on July 19, 2025 3:30:23 PM UT Z88.1 ICD10 ALLERGY STATUS T O OTHER ANTIBIOTIC AGENTS [id number] on July 19, 2025 3:30:23 PM [facility] Z80.6 ICD10 FAMILY HISTORY OF LEUKEMIA N [id number] on July 19, 2025 3:30:23 PM [facility] Z84.89 ICD10 FAMILY HISTORY O F OTHER SPECIFIED CONDITIONS [id number] on July 19, 2025 3:30:24 PM [facility] W19.XXXD ICD10 UNSPECIFIED FALL , SUBSEQUENT ENCOUNTER [id number] on July 19, 2025 3:30:24 PM [facility] CARE TEAM Care Facility Examiner Role NURIS TOLLIVER Primary Attending NURIS TOLLIVER Referring NONE NONE Primary Care NURIS TOLLIVER Admitting HOSPITAL DISCHARGE INSTRUCTION DISCHARGE INSTRUCTION Encounter [id number] Admit Date July 16, 2025 7:23 :00 PM [facility] Discharge Date July 18, 2025 7: 13:00 PM [facility] PATIENT EDUCATION SUMMARY Patient/Visit Information: Patient Name: LORETA JAMES Diag: Attending Caregiver: ADRIAN Gardner Discharge Instruction Sheets Provided: Fall Prevention Tips - BLUE BG KYNECT-HELP BLUE-Medication Management Femoral Shaft Fracture Treated With Immobilization Discharge Instructions Fall Prevention in the Home, Adult Suicidal Feelings: How to Help Yourself Venous Thromboembolism Prevention Community-Acquired Pneumonia, Adult Distal Femur Fracture Treated With ORIF, Care After Fall Prevention in the Home, Adult, Hygu-pw-Riff Patient Instructions: Additional Notes for Venous Thromboembolism Prevention Orientation/Behavior: Diet: As tolerated Activity: As tolerated Elimination: As tolerated Follow-up appointments: Follow up with primary care provider within the week. Follow up with ortho as ordered. Prescriptions: Pickup at pharmacy. Special instructions if applicable: None. Do Not Stop Taking medications - talk with your physicians before stopping. National Suicide Prevention Lifeline : We can all help prevent suicide. The Lifeline provides 24/, free and confidential support for people in distress, prevention and crisis resources for you or your loved ones, and best practices for professionals. National Suicide Prevention Lifeline Followup Appointments/Instructions: HISTORY AND PHYSICAL NOTE DISCHARGE SUMMARY NOTE CARE TEAM CARE stone spreader operator Role on Team Location Telecom Status Start Date End Ronny e Updated By NONE NONE PCP normal July 14, 2025 8:08:29 PM [facility] July 16, 2025 4:00:00 AM [facility] [id number] on July 14, 2025 8:08:29 PM [facility] ADRIAN RAMSAY Referring normal July 14, 2025 8:08:29 PM [facility] July 16, 2025 4:00:00 AM [facility] [id number] on July 14, 2025 8:08:29 PM [facility] ADRIAN RAMSAY Attending normal July 14, 2025 8:08:29 PM [facility] July 16, 2025 4:00:00 AM [facility] [id number] on July 14, 2025 8:08:29 PM [facility] ADRIAN RAMSAY Admitting normal July 14, 2025 8:08:29 PM [facility] July 16, 2025 4:00:00 AM [facility] [id number] on July 14, 2025 8:08:29 PM [facility]
--- NOTE | 2025-09-04 13:45 | CA_ITS ---
FINAL REPORT TECHNIQUE: Compression kessler scale and Doppler evaluation CLINICAL HISTORY: 1 MONTH S/P ORIF LEFT HIP FX, CHRONIC VENOUS INSUFFICIENCY, HTN, HLD, DM, COPD, GERD COMPARISON: None FINDINGS: Femoral and popliteal veins show normal compressibility and flow. Visualized portion of the calf veins are patent by Doppler exam, although there was slight limitation secondary to edema and tenderness. IMPRESSION: No evidence of left lower extremity deep venous thrombosis Reviewed, Interpreted and Dictated by Sisi Valerio MD Transcribed by Shannon Ash Authenticated and [facility]
== END 2025-09-04 23:59 | disposition home or self-care (01) ==
LOC: RT 13:17
PROVIDERS: PCP Internal Medicine; Visit Provider Internal Medicine
DX: M79.662 Pain in left lower leg (principal); Z98.890 Other specified postprocedural states; Z87.81 Personal history of (healed) traumatic fracture; I87.2 Venous insufficiency (chronic) (peripheral); I10 Essential (primary) hypertension; E78.5 Hyperlipidemia, unspecified; E11.9 Type 2 diabetes mellitus without complications; J44.9 Chronic obstructive pulmonary disease, unspecified; K21.9 Gastro-esophageal reflux disease without esophagitis
CPT/HCPCS: 93971

== ENCOUNTER 2025-11-02 12:30 | Outpatient (CLI) | payer MEDICARE, SELFPAY ==
[2025-11-02 15:14] LABS: Alanine Aminotransferase 19 U/L (12-78); Albumin Level 4.5 g/dl (3.5-5.0); Albumin/Globulin Ratio 1.9 (1.1-1.8); Alkaline Phosphatase 92 U/L (38-126); Anion Gap 13.5 mEq/L (5-15); Aspartate Amino Transferase 26 U/L (14-36); Bilirubin,Total 0.6 mg/dl (0.2-1.3); Blood Urea Nitrogen 10 mg/dl (7-17); Calcium 11.0 mg/dl (8.4-10.2); Carbon Dioxide 25 mmol/L (22.0-30.0); Chloride 99 mmol/L (98-107); Cholesterol 228 mg/dl (140-200); Creatinine,Serum 0.60 mg/dl (0.52-1.04); Estimated Glomerular Filt Rate 96 ml/min (>60); GFR (African American) 116 ML/MIN (>60); Globulin 2.4 g/dL (1.3-3.2); Glucose 79 mg/dl (74-100); HDL Cholesterol 65 mg/dl (40-60); Potassium 4.5 mmoL/L (3.5-5.1); Sodium 133 mmol/L (136-145); Total Protein,Serum 6.9 g/dl (6.3-8.2); Triglycerides 188 mg/dl (30-150)
[2025-11-02 16:21] LABS: Hemoglobin A1C 4.9 % (4.0-6.0)
--- OUTSIDE RECORDS SUMMARY | 2025-11-03 10:26 | XMS_ITS | Clinical Summary ---
Author Organization [facility] Address [address] [place] [address] Phone Care Team Providers Care Financial Accounting Manager Name Role Phone Santana Jacob MD Primary Care Provider [phone] Allergies Active Allergy Reactions Criticality Noted Date [...] MR [employer] MEDICARE PPO MR Care Teams Financial Accounting Manager Relationship Specialty Start Date End Date Santana Jacob MD [address] [place] [id number] PCP - General Internal Medicine 02/05/13
--- OUTSIDE RECORDS SUMMARY | 2025-11-03 10:26 | XMS_ITS | Clinical Summary ---
Author Organization [facility] Address [address] [place] [address] Care Team Providers Care Driller Helper Name Role Phone Santana Jacob MD Primary Care Provider [phone] Allergies Active Allergy Reactions Criticality Noted Date [...] (one) time each day. Active HYDROcodone-cece taminophen ([place]) 5-325 MG tablet 03/14/2022 Active escitalopram (Lexapro) 20 MG tablet Take by mouth 1 (one) time each day. Active diclofenac (Voltaren) 75 MG EC tablet 09/07/2022 Active clonazePAM (KlonoPIN) 0.5 MG tablet 09/05/2022 Active aspirin 81 MG chewable tablet Chew 81 mg 1 (one) time each day. Active Active Problems Problem Noted Date Diagnosed Date Hiatal hernia 10/23/2022 Reflux esophagitis 10/23/2022 Dysphagia 10/23/2022 Resolved Problems Problem Noted Date Diagnosed Date Resolved Date Abdominal bloating 10/23/2022 5 Family History Medical History Relation Name Comments [...] Last Done Comments [facility] Annual Wellness (AWV) 1945 [facility]-/Child/Adol SDOH Screenings 1945 [facility]- SDOH Screenings 1963 [facility]-Adult SDOH Screenings 1963 [facility]-DTaP,Tdap,and Td Vaccines (1 - Tdap) 1964 [facility]-Zoster Vaccines (1 of 2) 1995 [facility]-Pneumococcal Vaccine: 50+ Years (2 of 2 - PCV) 12/29/2001 12/29/2000 [facility]-RSV Vaccine: 60+ Years or (1 - 1-dose 75+ series) 2020 [facility]-Depression Screening 10/23/2023 10/23/2022 SFL-IZDNA-53 Vaccine ( season) 2025 09/30/2021, 02/09/2021, 01/12/2021 [facility]-Influenza Vaccine (#1) 2025 HPV Vaccines (No Doses Required) Completed [facility]-HIB Vaccines Aged Out No longer e [...] patient's age to complete this topic Insurance [facility] MEDICARE Care Teams Driller Helper Relationship Specialty Start Date End Date Santana Jacob MD [address] [facility] [address] [place] [address] PCP - General 10/23/22
--- OUTSIDE RECORDS SUMMARY | 2025-11-03 10:26 | XMS_ITS | Encounter Summary ---
Author Organization [facility] Address [address] [place] [address] Care Team Providers Care Digital Content Manager Name Role Phone Santana Jacob MD Primary Care Provider [phone] Reason for Visit * Reason Onset Date Comments NO SHOW FOLLOW UP 08/29/2025 Encounter Details Date Type Department Care Team (Late st Contact Info) Description 08/29/2025 Telephone [facility] [address] [facility] [address] [place] [address] Henrry Klein MD [address] [facility] [address] [place] [address] NO SHOW FOLLOW UP Social History Tobacco Use Types Packs/Day Years Used Date Smoking Tobacco: Former Cigarettes Q uit: 1993 Passive Smoke Exposure: Past Smokeless Tobacco: Never Alcohol Use Standard Drinks/Week [...] file Not on file Not on file documented as of this encounter Miscellaneous Notes * Telephone Encounter - Shanique Sanchez RegSched Rep - 08/29/2025 10:49 AM EDT Called patient to follow-up on 05/25/[address] Klein. Spoke to patient regarding no show. Explained no show policy and provided best details on how to contact office in future. No show letter mailed. Additional details below as needed. Additional Notes: PT STATED SHE DID NOT NEED A FOLLOW UP APPT. SHE FELL AND BROKE HER FEMUR AND HASN'T BEEN ABLE TO GET AROUND. WILL CALL THE OFFICE BACK WHEN SHE IS ABLE AND BETTER. documented in this encounter Plan of Treatment Not on file documented as of this encounter Visit Diagnoses Not on filedocumented in this encounter Care Teams Digital Content Manager Relationship Specialty Start Date End Date Santana Jacob MD [address] [place] [address] [place] [address] PCP - General Internal Medicine 01/22/21 documented as of this encounter
--- OUTSIDE RECORDS SUMMARY | 2025-11-03 10:26 | XMS_ITS | Clinical Summary ---
Author Organization [facility] Address [address] [place] [address] Care Team Providers Care Stopper Grinder Name Role Phone Santana Jacob MD Primary Care Provider [phone] Allergies No known active allergies Medications aspirin [...] GERD (gastroesophageal reflux disease) 7 Hypokalemia 03/27/2017 Encounters Date Type Department Care Team Description 08/29/2025 Telephone [facility] [address] [place] [address] [address] [place] [address] Henrry Klein MD NO SHOW FOLLOW UP from Last 3 Months Immunizations Immunization Administration Dates Next Due Pneumococcal [...] Brother 4 Father Mother Sister 1 Alive usp Sister 2 Sister 3 Sister 4 Social [...] (1 - 1- dose 75+ series) 2020 COVID-19 Vaccine (3 - Modern a risk series) 10/28/2021 09/30/2021, 02/09/2021, 01/12/2021 Pneumococcal Vaccine 50+ (3 of 3 - PCV20 or PCV21) 03/27/2022 03/27/2017, 12/29/2000 INFLUENZA VACCINE 06/16/2025 08/17/2018, , 09/29/2016, Additional history exists TDAP/TD VACCINES (2 - Td or Tdap) 03/27/2027 017 MAMMOGRAM Discontinued 10/15/2016, 09/18, 08/26/2016, Additional history exists Procedures Procedure Name Priority Date/Time Associated Diagnosis Comments LIPID PANEL Routine 07/24/2017 11:10 AM EDT Hypercholesteremia from Last 3 Months or Most Recently Relevant to Health Maintenance Results * Lipid Panel (07/24/2017 11:10 AM EDT) Total Cholesterol 146 0 - 200 mg/dL [...] - 07/24/2017 8:09 PM EDT Performed at: [address] [place] [id number] Ticketing Clerk: Los Bob MD, Phone: [phone] us Vazquez Aldrich MD LAB BLOOD ORDERABLES Final Resu lt [facility] [address] [place] [address], [facility] [address] [place] [address], from Last 3 Months or Most Recently Relevant to Health Maintenance Insurance [employer] PPO Care Teams Stopper Grinder Relationship Specialty Start Date End Date Santana Jacob MD [address] [facility] [address] [place] [phone] PCP - General Internal Medicine 01/22/21
--- OUTSIDE RECORDS SUMMARY | 2025-11-03 10:26 | XMS_ITS | Encounter Summary ---
Author Organization [facility] Address [address] [place] [address] Care Team Providers Care Temperature Control Inspector Name Role Phone Santana Jacob MD Primary Care Provider [phone] Encounter Details Date Type Department Care Team (Late st Contact Info) Description 10/11/2014 External CPT II [facility] Social History Tobacco Use [...] on filedocumented in this encounter Care Teams Temperature Control Inspector Relationship Specialty Start Date End Date Santana Jacob MD [address] [facility] [address] [place] [phone] PCP - General Internal Medicine 01/22/21 documented as of this encounter
== END 2025-11-02 23:59 | disposition home or self-care (01) ==
LOC: LAB.DROPOF 11-03 10:24
PROVIDERS: PCP Internal Medicine; Visit Provider Internal Medicine
DX: E78.5 Hyperlipidemia, unspecified (principal); I10 Essential (primary) hypertension; M15.0 Primary generalized (osteo)arthritis; E11.42 Type 2 diabetes mellitus with diabetic polyneuropathy; E83.52 Hypercalcemia
CPT/HCPCS: 80053; 80061; 83036; 83970